=== PATIENT | female | born 1945 | race Caucasian/White ===

== ENCOUNTER → 2016-06-26 | Outpatient (CLI) | payer BC ==
[2016-06-26 11:22] LABS: BASO % 0.3 %; BASO ABS # 0.03 K/uL (0-0.2); COMPLETE YES; EOS % 1.5 %; HEMATOCRIT 33.3 % (37-47); IG% 0.4 %; LYMPH % 25.1 %; LYMPH ABS # 2.62 K/uL (1.2-3.4); MEAN CELL VOLUME 87.4 fL (80-100); MEAN CORPUSCULAR HEMOGLOBIN 29.4 pg (25-34); MEAN CORPUSCULAR HGB CONC 33.6 g/dl (32-36); MEAN PLATELET VOLUME 10.5 fL (7.4-10.4); MONO % 7.2 %; NEUT % 65.5 %; PLATELET COUNT 249 K/uL (130-400); RED BLOOD COUNT 3.81 M/uL (4.2-5.4); WHITE BLOOD COUNT 10.43 K/uL (4.8-10.8)
[2016-06-26 11:39] LABS: ALT/SGPT 21 U/L (12-78); BLOOD UREA NITROGEN 39 mg/dl (7-18); BUN/CREATININE RATIO 27.6 (10-20); CALCIUM 8.7 mg/dl (8.5-10.1); CARBON DIOXIDE 24 mmol/L (21-32); CHLORIDE 110 mmol/L (98-107); CHOLESTEROL 160 mg/dl (0-200); GLUCOSE 130 mg/dl (70-99); POTASSIUM 5.5 mmol/L (3.5-5.1); SODIUM 141 mmol/L (136-145)
[2016-06-26 11:48] LABS: ALB/GLOB RATIO 0.9 (0.9-2); ALKALINE PHOSPHATASE 52 U/L (45-117); AST/SGOT 13 U/L (15-37); CHOLESTEROL/HDL RATIO 2.7; HDL CHOLESTEROL 59 mg/dl; LDL CHOLESTEROL CALCULATED 55 mg/dl; PHOSPHORUS 3.2 mg/dl (2.5-4.9); TRIGLYCERIDES 228 mg/dl (0-150); VERY LOW DENSITY LIPOPROT CALC 46 mg/dl
[2016-06-26 11:56] LABS: URINE PROTIEN/CREAT RATIO 0.2 (0-0.2); URINE TOTAL PROTEIN 23.1 mg/dl (0-11.9)
[2016-06-26 12:37] LABS: ESTIMATED AVERAGE GLUCOSE 171 mg/dl; HA1C FLAG Normal (Normal)
[2016-06-26 12:43] LABS: MANUAL MICROSCOPIC REQUIRED? NO; REVIEW REQ? NO; URINE APPEARANCE CLEAR (CLEAR); URINE BILIRUBIN NEG (NEG); URINE COLOR YELLOW; URINE EPITHELIAL CELL AUTO 20-30 /lpf (0-5); URINE NITRITE NEG (NEG); UROBILINOGEN NEG (NEG); ZZUR CULT IF INDIC CLEAN CATCH YES
--- NOTE | 2016-07-03 06:26 | CODING QUERY MEDICAL NECESSITY ---
SUPPORTING DIAGNOSIS NEEDED A supporting diagnosis is required for the test/procedure performed on this patient in order for us to be reimbursed by the patient's insurance. Please provide a supporting diagnosis for the following test/procedure listed below next to the test name along with your signature. *If there is no additional diagnosis for this patient that would support the following test/procedure please document that below next to the test/procedure. Test(s)/Procedure(s) that require a supporting diagnosis: DOS 06/26 * Hba1c DIAGNOSIS: * TSH DIAGNOSIS: * Lipids DIAGNOSIS: Provider Signature: Date: Thank you Stacia Jones Health Information Management Once completed, please kindly fax back to [phone] For questions please call [phone]
== END | disposition home or self-care (01) ==
LOC: C.LABBC 08:33
PROVIDERS: ATTEND Internal Medicine Nephrology
DX: N18.3 Chronic kidney disease, stage 3 (moderate) (principal); E11.22 Type 2 diabetes mellitus with diabetic chronic kidney disease; I12.9 Hypertensive chronic kidney disease with stage 1 through stage 4 chronic kidney disease, or unspecified chronic kidney disease; E78.5 Hyperlipidemia, unspecified

== ENCOUNTER → 2016-08-31 | Outpatient (CLI) | payer BC ==
[2016-08-31 13:52] LABS: BLOOD UREA NITROGEN 44 mg/dl (7-18); BUN/CREATININE RATIO 31.3 (10-20); CARBON DIOXIDE 21 mmol/L (21-32); CHLORIDE 109 mmol/L (98-107); GLUCOSE 218 mg/dl (70-99); MAGNESIUM 1.5 mg/dl (1.8-2.4); PHOSPHORUS 4.1 mg/dl (2.5-4.9); POTASSIUM 5.5 mmol/L (3.5-5.1); SODIUM 137 mmol/L (136-145)
[2016-08-31 13:59] LABS: CALCIUM 9.9 mg/dl (8.5-10.1)
== END | disposition home or self-care (01) ==
LOC: C.LABBC 10:34
PROVIDERS: ATTEND Internal Medicine Nephrology
DX: E87.5 Hyperkalemia (principal)

== ENCOUNTER → 2017-02-07 | Outpatient (CLI) | payer BC ==
[2017-02-07 14:07] LABS: BLOOD UREA NITROGEN 43 mg/dl (7-18); BUN/CREATININE RATIO 30.6 (10-20); CALCIUM 10.1 mg/dl (8.5-10.1); CARBON DIOXIDE 25 mmol/L (21-32); CHLORIDE 110 mmol/L (98-107); GLUCOSE 120 mg/dl (70-99); PHOSPHORUS 3.4 mg/dl (2.5-4.9); POTASSIUM 5.2 mmol/L (3.5-5.1); SODIUM 140 mmol/L (136-145)
== END | disposition home or self-care (01) ==
LOC: C.LABBC 11:03
PROVIDERS: ATTEND Internal Medicine Nephrology
DX: E87.5 Hyperkalemia (principal)

== ENCOUNTER → 2017-09-06 | Outpatient (CLI) | payer BC ==
[2017-09-06 14:09] LABS: HEMOGLOBIN A1C 9.1 % (4.5-5.6)
== END | disposition home or self-care (01) ==
LOC: C.LABBC 10:01
PROVIDERS: ATTEND Physician Assistant
DX: E11.9 Type 2 diabetes mellitus without complications (principal)

== ENCOUNTER 2023-09-13 21:05 | Inpatient (IN) ==
[2023-09-13 22:11] LABS: Basophils # (auto) 0.02 K/uL (0.00-0.20); Basophils % (auto) 0.2 %; Eosinophils # (auto) 0.05 K/uL (0.00-0.50); Eosinophils % (auto) 0.4 %; Hematocrit (blood only) 33.5 % (37.0-47.0); Immature Granulocytes # (auto) 0.08 K/uL (0.01-0.20); Immature Granulocytes % (auto) 0.6 %; Lymphocytes # (auto) 1.11 K/uL (1.20-3.40); Lymphocytes % (auto) 8.3 %; Mean Corpuscular Hemoglobin 29.2 pg (25.0-34.0); Mean Corpuscular Hgb Conc 32.8 g/dL (32.0-36.0); Mean Corpuscular Volume 88.9 fL (80.0-100.0); Mean Platelet Volume 10.7 fL (9.4-12.4); Monocytes # (auto) 1.02 K/uL (0.11-0.59); Monocytes % (auto) 7.7 %; Neutrophils # (auto) 11.05 K/uL (1.40-6.50); Neutrophils % (auto) 82.8 %; Platelet Count 318 K/uL (130-400); RDW Standard Deviation 45.3 fL (36.4-46.3); Red Blood Count 3.77 M/uL (4.20-5.40); White Blood Count 13.33 K/ul (4.8-10.8)
[2023-09-13 22:29] LABS: Albumin Globulin Ratio 0.9 (0.9-2); Albumin Level 3.7 gm/dl (3.4-5.0); Bilirubin,Total 0.4 mg/dl (0.2-1.0); Est GFR (African American) 29.5 ml/min; Est GFR (Non-African American) 25.5 ml/min; Globulin 4.3 gm/dl (2.5-4.0); Potassium 4.1 mmol/L (3.5-5.1)
[2023-09-13] MEDS: ONDANSETRON INJ 2 MG/ML 2 ML VIAL IV STA (23:06)
[2023-09-13] MEDS: MoRPHine SULFATE 4 MG/ML 1 ML CARP\\VIAL IV STA (23:09)
[2023-09-13] MEDS: cefTRIAXone SODIUM 2,000 MG/50 ML BAG IV STA (23:10)
[2023-09-14] LABS: Magnesium 1.4 mg/dl (1.7-2.4)
--- NOTE | 2023-09-14 00:25 | Emergency Department Note ---
History of Present Illness General Chief complaint: Hip Pain Stated complaint: Edema Lower Extremities, Bilateral Stress Fx Hips Time Seen by Provider: 09/13/23 22:49 History of Present Illness Maximum Pain Intensity: 5 This 78-year-old female presents to the ER complaining of diffuse pain. Patient states she fell last week and has seen Ortho with x-rays that showed stress fractures. Patient states now her left foot is more swollen and very painful. No history of cellulitis to this leg. She states both feet actually bother her and are swollen. No history of DVT or PE. She does not smoke. Patient denies chest pain, dyspnea, abdominal pain, vomiting, diarrhea. Home Medications Medication Instructions Recorded Confirmed Type acetaminophen 500 mg tablet 500 mg PO Q6H PRN Pain 01/13/19 09/13/23 History lancets 33 gauge (OneTouch Delica #100 ea 01/13/19 07/05/23 History Lancets) multivitamin 1 tab PO DAILY 01/13/19 09/13/23 History ascorbic acid (vitamin C) 1,000 mg 1 gm PO DAILY 01/16/19 09/13/23 History tablet cholecalciferol (vitamin D3) 125 5,000 unit PO DAILY #90 caps 02/25/20 09/13/23 Rx mcg (5,000 unit) capsule cyanocobalamin (vitamin B-12) 500 500 mcg PO DAILY #30 tabs 06/27/21 09/13/23 Rx mcg tablet BD Ultra-Fine Ольга Pen Needle 32 #400 ea 11/14/22 07/05/23 Rx gauge x 5/32" (pen needle, diabetic) atorvastatin 20 mg tablet 20 mg PO DAILY #90 tabs 04/11/23 09/13/23 Rx magnesium chloride 71.5 mg 143 mg (2 x 71.5 mg) PO BID #360 06/19/23 09/13/23 Rx (magnesium chloride) tabs tablet,delayed release (Slow-Mag) sertraline 50 mg tablet 100 mg (2 x 50 mg) PO DAILY #180 08/13/23 09/13/23 Rx tabs OneTouch Verio test strips (blood #400 ea 08/23/23 Rx sugar diagnostic) tramadol 50 mg tablet 50 - 100 mg (1 - 2 x 50 mg) PO Q6H 09/12/23 09/13/23 Rx PRN pain #20 tabs insulin aspart U-100 100 unit/mL 8 - 10 unit subcut TIDM 09/13/23 09/13/23 History (3 mL) subcutaneous pen (Novolog FlexPen U-100 Insulin aspart) insulin glargine 100 unit/mL (3 20 - 30 unit subcut HS 09/13/23 09/13/23 History mL) subcutaneous pen (Basaglar KwikPen U-100 Insulin) Allergies Allergy/AdvReac Type Severity Reaction Status Date / Time tree and shrub pollen Allergy Intermediate ITCHY Verified 09/13/23 22:00 EYES, SNEEZING, CONGESTION CODY Inhibitors AdvReac Intermediate Cough Verified 09/13/23 22:00 clarithromycin AdvReac Intermediate Vomiting Verified 09/13/23 22:00 Macrolide Antibiotics AdvReac Intermediate Vomiting Verified 09/13/23 22:00 Past Med/Surg History Medical History Type 2 diabetes mellitus CKD (chronic kidney disease), stage III Hyperkalemia Surgical History History of hysterectomy Family History Father Diabetes Macular degeneration Lung disease Mother Heart disease Hyperlipidemia Dementia Social History Smoking Status: Never smoker Hx Alcohol Use: No Hx Substance Use: No Preferred Language: Wolof Communication Ability: Effective marital status: Current Living Situation: Spouse current occupational status: retired Feels Safe at Home: Yes Review of Systems A total of 10 systems reviewed and were otherwise negative Physical Exam Vital Signs Vital Signs - 24 hr 09/13/23 21:12 09/13/23 23:00 09/14/23 01:00 Temperature 36.8 C Temperature Source Oral Pulse Rate 79 Pulse Rate [Apical] 87 87 Respiratory Rate 21 18 Respiratory Effort / Characteristics Non-Labored Spontaneous Respiratory Depth Normal Respiratory Pattern Regular Blood Pressure 189/90 H Blood Pressure [Right Arm] 174/94 H 142/68 H Blood Pressure Mean 123 Blood Pressure Mean [Right Arm] 120 92 Blood Pressure Position Semi-fowlers Pulse Oximetry 96 88 L Oxygen Delivery Method Room Air Room Air Oxygen Flow Rate Sepsis Recent Fever Within 48 Hours No Sepsis New/Unexplained Change in Mental Status No Sepsis Action Taken by Nursing No Action Required 09/14/23 01:09 Temperature Temperature Source Pulse Rate Pulse Rate [Apical] Respiratory Rate Respiratory Effort / Characteristics Respiratory Depth Respiratory Pattern Blood Pressure Blood Pressure [Right Arm] Blood Pressure Mean Blood Pressure Mean [Right Arm] Blood Pressure Position Pulse Oximetry 97 Oxygen Delivery Method Nasal Cannula Oxygen Flow Rate 2 Sepsis Recent Fever Within 48 Hours Sepsis New/Unexplained Change in Mental Status Sepsis Action Taken by Nursing VITALS: Vitals are noted on the nurse's note and reviewed by myself. Vital signs stable. GENERAL: Pleasant female with present, in no acute distress, nondiaphoretic, well-developed well-nourished. SKIN: Left foot erythematous edematous concerning for cellulitis, the rest of the skin was without rashes, erythema, edema, or bruising. There is no tenting of the skin. Capillary reflex less than 2 seconds. HEAD: Normocephalic atraumatic. EARS: External auditory canals clear EYES: Pupils equal round and reactive to light and accommodation. Conjunctivae without injection, sclerae without icterus. Extraocular movements intact. NOSE: Patent, no discharge. MOUTH: Mucous membranes moist. Pharynx without erythema or exudate. Uvula midline. Airway patent. Tongue does not deviate. NECK: Supple without nuchal rigidity. No lymphadenopathy. No thyromegaly. Cervical spine is nontender. No JVD. HEART: Regular rate and rhythm LUNGS: Clear to auscultation bilaterally without wheezes, rales or rhonchi. No retractions or accessory muscle use. ABDOMEN: Positive bowel sounds x 4. Normal tympanic percussion. Soft, nontender, without masses or organomegaly. Cummins sign negative. No guarding or rebound tenderness. No CVA tenderness MUSCULOSKELETAL: No muscle atrophy noted. Pedal pulses +2 equal present bilaterally. Pelvis stable. NEURO: Patient was alert and oriented to person place and time. Normal sensation to light and sharp touch. No focal neurological deficits. Course Administered Medications Magnesium Sulfate/Dextrose (Magnesium Sulfate / D5w) 1 gm in 100 mls @ 100 mls/hr IV Q1H LIBIA Stop: 09/14/23 02:24 Last Admin: 09/14/23 00:52 Dose: 100 mls/hr Documented By: ELENI Discontinued Medications Ceftriaxone Sodium (Rocephin) 2,000 mg in 50 mls @ 100 mls/hr IV NOW STA Stop: 09/13/23 23:29 Last Infusion: 09/14/23 00:02 Dose: Infused Documented By: Admin: 09/13/23 23:10 Dose: 100 mls/hr Documented By: ELENI Morphine Sulfate (Morphine Sulfate 4 Mg/Ml 1 Ml Carp\\Vial) 4 mg IV NOW STA Stop: 09/13/23 23:01 Last Admin: 09/13/23 23:09 Dose: 4 mg Documented By: ELENI Ondansetron HCl (Ondansetron Inj 2 Mg/Ml 2 Ml Vial) 4 mg IV NOW STA Stop: 09/13/23 23:01 Last Admin: 09/13/23 23:06 Dose: 4 mg Documented By: ELENI Medical Decision Making Medical Records Attestation: I reviewed the patient's medical records. Home Medications Current Medication List: was personally reviewed by me Laboratory Data Attestation: I reviewed the patient's lab results. 09/13/23 21:30 09/13/23 21:30 Lab Results 09/13/23 09/13/23 Range/Units 21:21 21:30 WBC 13.33 H (4.8-10.8) K/ul RBC 3.77 L (4.20-5.40) M/uL Hgb 11.0 L (12.0-16.0) g/dl Hct 33.5 L (37.0-47.0) % MCV 88.9 (80.0-100.0) fL MCH 29.2 (25.0-34.0) pg MCHC 32.8 (32.0-36.0) g/dL RDW Std Deviation 45.3 (36.4-46.3) fL RDW Coeff of Haider 14.0 (11.5-14.5) % Plt Count 318 (130-400) K/uL MPV 10.7 (9.4-12.4) fL Immature Gran % (Auto) 0.6 % Neut % (Auto) 82.8 % Lymph % (Auto) 8.3 % Bulloch % (Auto) 7.7 % Eos % (Auto) 0.4 % Baso % (Auto) 0.2 % Neut # (Auto) 11.05 H (1.40-6.50) K/uL Lymph # (Auto) 1.11 L (1.20-3.40) K/uL Bulloch # (Auto) 1.02 H (0.11-0.59) K/uL Eos # (Auto) 0.05 (0.00-0.50) K/uL Baso # (Auto) 0.02 (0.00-0.20) K/uL Immature Gran # (Auto) 0.08 (0.01-0.20) K/uL Sodium 134 L (136-145) mmol/L Potassium 4.1 (3.5-5.1) mmol/L Chloride 100 (98-107) mmol/L Carbon Dioxide 24 (21-32) mmol/L Anion Gap 10 (3-11) BUN 52 H (6-23) mg/dl Creatinine 1.86 H (0.6-1.2) mg/dl Est Cr Clr Drug Dosing 28.0 ml/min Est GFR ( Amer) 29.5 ml/min Est GFR (Non-Af Amer) 25.5 ml/min BUN/Creatinine Ratio 28.0 H (10-20) Glucose 147 H (70-99(Fasting)) mg/dl POC Glucose 173 H (70-99) mg/dl Calcium 10.0 (8.6-10.3) mg/dl Magnesium 1.4 L (1.7-2.4) mg/dl Total Bilirubin 0.4 (0.2-1.0) mg/dl AST 15 (13-39) U/L ALT 13 (7-52) U/L Alkaline Phosphatase 71 (34-104) U/L Total Creatine Kinase 78 (26-192) U/L B-Natriuretic Peptide 75 (0-100) pg/ml Total Protein 8.0 (6.0-8.3) gm/dl Albumin 3.7 (3.4-5.0) gm/dl Globulin 4.3 H (2.5-4.0) gm/dl Albumin/Globulin Ratio 0.9 (0.9-2) Imaging Data Attestation: I personally reviewed and interpreted this imaging study as follows: Radiologist's Impression: Venous Doppler Study 09/13/23 23:00 Exam(s): US VENOUS BILATERAL LOWER EXTREMITIES EXAM: US Duplex Bilateral Lower Extremities Veins CLINICAL HISTORY: Reason for exam: lower leg swelling. TECHNIQUE: Real-time duplex ultrasound scan of the bilateral lower extremity veins integrating B-mode two-dimensional vascular structure, Doppler spectral analysis, color flow Doppler imaging and compression. COMPARISON: No relevant prior studies available. FINDINGS: Veins: No DVT in the visualized veins, including the common femoral, superficial femoral, proximal deep femoral and popliteal veins. The veins demonstrate normal color flow, are normally compressible, with normal phasic flow and/or augmentation response. Soft tissues: No popliteal cyst. Mild edema. IMPRESSION: No DVT, bilaterally. Electronically signed by: Kylie Taveras M.D. 09/14/23 01:24 AM MDM Narrative Prior records/ancillary studies reviewed and summarized above. Nursing notes reviewed. Additional history obtained from family The patient's history was concerning for generalized pain. Differential diagnosis: Etiologies such as metabolic, infection, hypo/hyperglycemia, electrolyte abnormalities, cardiac sources, intracerebral event, toxicologic, neurologic, as well as others were entertained. Physical examination: As above. ER treatment provided: IV Lock An order was placed for continuous cardiac monitoring. The monitor shows a rate of 60-100 with a sinus rhythm per my interpretation. Rocephin, morphine, Zofran was ordered Magnesium was replaced On reassessment the patient felt better. Diagnostics interpretation by me: The labs Independently Interpreted by myself revealed leukocytosis, blood cultures pending Stable creatinine per chart review, mild anemia, low magnesium and this was replaced Imaging studies: DVT ultrasound was negative Consultation: A consultation was placed with the hospitalist. The case was discussed and diagnostics were reviewed. The patient was evaluated in the ER for further treatment. Exam and history seem consistent with left lower leg cellulitis. Patient started antibiotics. Patient was in too much pain to go home. Medicine was consulted and case was discussed. She will be mated to the medical service. Patient is agreeable. By the evaluation outlined above emergent etiologies such as cardiac sources, intracerebral event, toxologic, neurologic, abnormalities blood glucose, metabolic, as well as others were deemed relatively unlikely. The pt informed about the findings as listed above. All questions were answered and pleased with the treatment. The chart was completed utilizing [employer] voice recognition software. Grammatical errors, random word insertions, pronoun errors, and incomplete sentences are an occassional consequence of this system due to software limitations, ambient noise, and hardware issues. Any formal questions or concerns about the content, text, or information contained within the body of this dictation should be directly addressed to the physician educational assistant teacher for clarification. Impression & Plan Cellulitis of left lower leg, Hypomagnesemia Discharge Plan Visit Data Chief Complaint: Hip Pain Stated Complaint: Edema Lower Extremities, Bilateral Stress Fx Hips ED Provider: Nolberto Watt ED Midlevel Provider: Marlene Fisher Discharge Problem: Cellulitis of left lower leg, Hypomagnesemia Patient Disposition: Admitted As Inpatient Condition: Good Forms Stand Alone Forms: My [facility] [employer] Prescriptions Prescriptions: No Action cyanocobalamin (vitamin B-12) 500 mcg tablet 500 mcg PO DAILY Qty: 30 0RF (DME) pen needle, diabetic [BD Ultra-Fine Ольга Pen Needle] 32 gauge x 5/32" needle See Dose Instructions .ROUTE .MEDSUPPLY Qty: 400 1RF Dose Instruction: As directed Rx Instructions: use 4 daily with insulin injections atorvastatin 20 mg tablet 20 mg PO DAILY Qty: 90 3RF sertraline 50 mg tablet 100 mg PO DAILY Qty: 180 3RF (DME) OneTouch Verio test strips Strip See Dose Instructions .ROUTE .MEDSUPPLY Qty: 400 3RF Rx Instructions: Test blood sugars 4 times a day cholecalciferol (vitamin D3) 125 mcg (5,000 unit) capsule 5,000 unit PO DAILY Qty: 90 3RF Slow-Mag 71.5 mg tablet,delayed release (DR/EC) 143 mg PO BID Qty: 360 3RF acetaminophen 500 mg tablet 500 mg PO Q6H PRN (Reason: Pain) multivitamin tablet 1 tab PO DAILY (DME) lancets [OneTouch Delica Lancets] 33 gauge misc See Dose Instructions .ROUTE .MEDSUPPLY Qty: 100 Rx Instructions: As directed ascorbic acid (vitamin C) 1,000 mg tablet 1 gm PO DAILY tramadol 50 mg tablet 50 - 100 mg PO Q6H PRN (Reason: pain) Qty: 20 0RF insulin glargine [Basaglar KwikPen U-100 Insulin] 100 unit/mL (3 mL) insulin pen 20 - 30 unit SUBCUT HS Rx Instructions: DEPENDS ON BSG PRIOR TO INJECTION insulin aspart U-100 [Novolog FlexPen U-100 Insulin] 100 unit/mL (3 mL) insulin pen 8 - 10 unit SQ TIDM Rx Instructions: inject per sliding scale up to 12 units with meals- 3 times daily Referrals Referrals: Rola Fofana MD [Primary Care Provider] -
--- NOTE | 2023-09-14 00:51 | Emergency Department Note ---
ED Visit Note I have personally evaluated this patient examined her and reviewed the pertinent labs and data. I have discussed the case with Griselda Fisher, the physician family and divorce legal assistant and agree with the plan. Please refer to the PA note. This patient comes in after feeling weak on exam she does have some redness of her left foot she has been started on antibiotics and the hospitalist team is seen her . I saw and talked the patient at length as well as her family member who is at the bedside .
[2023-09-14] MEDS: MAGNESIUM SULFATE / D5W 1 GM/100 ML BAG IV SCH (00:52)
--- NOTE | 2023-09-14 01:25 | Ultrasound Report ---
Exam(s): US VENOUS BILATERAL LOWER EXTREMITIES EXAM: US Duplex Bilateral Lower Extremities Veins CLINICAL HISTORY: Reason for exam: lower leg swelling. TECHNIQUE: Real-time duplex ultrasound scan of the bilateral lower extremity veins integrating B-mode two-dimensional vascular structure, Doppler spectral analysis, color flow Doppler imaging and compression. COMPARISON: No relevant prior studies available. FINDINGS: Veins: No DVT in the visualized veins, including the common femoral, superficial femoral, proximal deep femoral and popliteal veins. The veins demonstrate normal color flow, are normally compressible, with normal phasic flow and/or augmentation response. Soft tissues: No popliteal cyst. Mild edema. IMPRESSION: No DVT, bilaterally. Electronically signed by: Kylie Taveras M.D. 09/14/23 01:24 AM
--- NOTE | 2023-09-14 01:55 | History & Physical Report ---
Date of Service September 14, 2023 Assessment & Plan (1) Cellulitis of left lower leg: Plan: Exam consistent with cellulitis. No signs of DVT on US. Started on CTX in the ED. Will continue with cefepime as patient with hx of diabetes. Blood cultures ordered - unfortunately abx already given. No signs of sepsis. If improvement in symptoms patient likely able to proceed with outpatient treatment. cefepime start 09/13 f/u blood cultures (2) Pelvis fracture: Plan: Patient saw ortho 09/11. Conservative measures only. (3) Diabetic retinopathy associated with controlled type 2 diabetes mellitus: Plan: Patient on insulin at home. Reduce to 5 mg BID basal in addition to SSI. SSI ACHS BSG Basal 5 mg BID (4) Hypertension: Plan: Does not appear to be on antihypertensive medication at home (5) Hyperlipidemia: Plan: Continue home statin Plan Code status: DNR/DNI DVT ppx: Lovenox SQ Q24H FENGI: carb consistent LR @ 125mL/hr x 2 bags Dispo: MedSurg History of Present Illness Chief Complaint: leg pain/swelling Primary Care Provider: Rola Fofana MD 78 y/o female with a PMHx of T2DM insulin dependent, HLD, VitD, and VitB12 deficiencies here for bilateral foot swelling and pain. Patient fell down the stairs about a week ago. Was initially sore, but doing okay and able to ambulate. Pain worsened, so she was seen by ortho outpatient. They did multiple XRs really only significant for nondisplaced left sided pelvic fracture. Recommended conservative measures at that time with repeat XR pelvis in 3-4 weeks. Patient did have pain/swelling/redness of her left foot/calf at that time. Note mentions mild erythema left foot. No intervention recommended. Patient started on CTX in the ED. Given morphine and zofran. Bilateral dopplers ordered. Hospitalist service consulted. Upon my interview, patient is resting comfortably. No f/c/n/v/abdominal pain, CP, or SOB. Does state that her right foot was initially erythematous and now it is her left. Allergies Allergy/AdvReac Type Severity Reaction Status Date / Time tree and shrub pollen Allergy Intermediate ITCHY Verified 09/13/23 22:00 EYES, SNEEZING, CONGESTION CODY Inhibitors AdvReac Intermediate Cough Verified 09/13/23 22:00 clarithromycin AdvReac Intermediate Vomiting Verified 09/13/23 22:00 Macrolide Antibiotics AdvReac Intermediate Vomiting Verified 09/13/23 22:00 Home Medications Medication Instructions Recorded Confirmed Type acetaminophen 500 mg tablet 500 mg PO Q6H PRN Pain 01/13/19 09/13/23 History lancets 33 gauge (OneTouch Delica #100 ea 01/13/19 07/05/23 History Lancets) multivitamin 1 tab PO DAILY 01/13/19 09/13/23 History ascorbic acid (vitamin C) 1,000 mg 1 gm PO DAILY 01/16/19 09/13/23 History tablet cholecalciferol (vitamin D3) 125 5,000 unit PO DAILY #90 caps 02/25/20 09/13/23 Rx mcg (5,000 unit) capsule cyanocobalamin (vitamin B-12) 500 500 mcg PO DAILY #30 tabs 06/27/21 09/13/23 Rx mcg tablet BD Ultra-Fine Ольга Pen Needle 32 #400 ea 11/14/22 07/05/23 Rx gauge x 5/32" (pen needle, diabetic) atorvastatin 20 mg tablet 20 mg PO DAILY #90 tabs 04/11/23 09/13/23 Rx magnesium chloride 71.5 mg 143 mg (2 x 71.5 mg) PO BID #360 06/19/23 09/13/23 Rx (magnesium chloride) tabs tablet,delayed release (Slow-Mag) sertraline 50 mg tablet 100 mg (2 x 50 mg) PO DAILY #180 08/13/23 09/13/23 Rx tabs OneTouch Verio test strips (blood #400 ea 08/23/23 Rx sugar diagnostic) tramadol 50 mg tablet 50 - 100 mg (1 - 2 x 50 mg) PO Q6H 09/12/23 09/13/23 Rx PRN pain #20 tabs insulin aspart U-100 100 unit/mL 8 - 10 unit subcut TIDM 09/13/23 09/13/23 History (3 mL) subcutaneous pen (Novolog FlexPen U-100 Insulin aspart) insulin glargine 100 unit/mL (3 20 - 30 unit subcut HS 09/13/23 09/13/23 History mL) subcutaneous pen (Basaglar KwikPen U-100 Insulin) Past Med/Surg History Medical History Type 2 diabetes mellitus CKD (chronic kidney disease), stage III Hyperkalemia Surgical History History of hysterectomy Family History Father Diabetes Macular degeneration Lung disease Mother Heart disease Hyperlipidemia Dementia Social History Smoking Status: Never smoker Second Hand Exposure: No; Do You Dip or Chew Tobacco: No; Hx Alcohol Use: No Hx Substance Use: No Preferred Language: Senegalese Communication Ability: Effective Sandstone Inspector Repairer Required: No Beliefs That Will Affect Care: None marital status: Current Living Situation: Spouse current occupational status: retired Other Information That Helps Us Care for You: No Feels Safe at Home: Yes Safety Concerns: Feels Safe At This Time Assistive Devices: Walker Review of Systems 2 Review of Systems: See HPI Physical Exam 2 Physical Exam: Gen: well appearing patient in NAD HEENT: AT NC MMM Resp: CTAB no wheezing no increased work of breathing CV: RRR no m/r/g clinically well perfused Abd: soft, non-tender, non-distended MSK: no obvious deformities Skin: no rashes or bruising, erythema and slight warmth of the left lower extremity, tender, no purulence, fluctuance, or drainage noted, no obvious wound or source, minimal erythema on the right but it is present Neuro: alert and oriented Psych: appropriate mood and affect Results & Data Results & Data Vital Signs (Past 12 Hours) Vital Signs Temp Pulse Pulse Resp BP BP Pulse Ox 09/14/23 01:09 97 09/14/23 01:00 87 18 142/68 H 88 L 09/13/23 23:00 87 174/94 H 09/13/23 21:12 36.8 C 79 21 189/90 H 96 O2 Del Method O2 Flow Rate 09/14/23 01:09 Nasal Cannula 2 09/14/23 01:00 Room Air 09/13/23 23:00 09/13/23 21:12 Room Air Laboratory Results 09/13/23 21:30 09/13/23 21:30 Diagnostic Findings Venous Doppler Study 09/13/23 23:00 FINDINGS: Veins: No DVT in the visualized veins, including the common femoral, superficial femoral, proximal deep femoral and popliteal veins. The veins demonstrate normal color flow, are normally compressible, with normal phasic flow and/or augmentation response. Soft tissues: No popliteal cyst. Mild edema. IMPRESSION: No DVT, bilaterally. Code Status & VTE Plan VTE Prophylaxis Plan VTE Prophylaxis will be ordered: Yes Supervising Physician Co-Signing Physician Notes Attending addendum: I have physically seen this patient, have supervised the medical residents activities, and agree with the H&P unless as otherwise noted. Assessment and Plan: Cellulitis of left lower extremity- Venous Doppler negative for DVT Given ceftriaxone 2 g IV by the ED Cefepime 2 g IV every 12 hours Follow blood culture and sensitivity Pelvis fracture- Followed by orthopedic surgery, having been seen on 09/11, with conservative measures only Diabetes mellitus- Adjustment insulin as noted Placed on Accu-Cheks with NovoLog SSI Remaining orders and notations as noted Resident Activity Tracking Resident Involvement: Resident Care Provided Care Provided: Adult Hospital Medicine (4) Hypertension Hypertension type: essential hypertension Qualified Code(s): I10 - Essential (primary) hypertension (5) Hyperlipidemia Hyperlipidemia type: mixed hyperlipidemia Qualified Code(s): E78.2 - Mixed hyperlipidemia
[2023-09-14] MEDS ORDERED: ONDANSETRON INJ 2 MG/ML 2 ML VIAL IV PRN (03:32)
[2023-09-14] MEDS ORDERED: GLUCOSE 40% GEL 15 GM TUBE PO PRN (03:32)
[2023-09-14] MEDS ORDERED: GLUCAGON FOR INJ 1 MG VIAL SQ PRN (03:32)
[2023-09-14] MEDS ORDERED: CARBOHYDRATES FOR HYPOGLYCEMIA PO PRN (03:32)
[2023-09-14] MEDS ORDERED: DEXTROSE 50% 50 ML SYRINGE IV PRN (03:32)
[2023-09-14] MEDS ORDERED: GLUCOSE 10 TAB/TUBE PO PRN (03:32)
[2023-09-14] MEDS: traMADol HCL 50 MG TABLET PO PRN (04:17)
[2023-09-14] MEDS: LACTATED RINGER'S 1,000 ML IV SCH (04:19)
[2023-09-14] MEDS: CEFEPIME 1,000 MG in SYRINGE 0 ML IV SCH (05:53)
[2023-09-14] MEDS: SERTRALINE HCL 100 MG TABLET PO SCH (08:26)
[2023-09-14] MEDS: ATORVASTATIN 20 MG TAB PO SCH (08:26)
[2023-09-14] MEDS: ENOXAPARIN INJ 30 MG/0.3 ML SYR SQ SCH (08:27)
[2023-09-14 08:33] LABS: Estimated Average Glucose 183 mg/dl
[2023-09-14] MEDS: LANTUS PER UNIT CHARGE SQ SCH (09:05)
[2023-09-14] MEDS: INSULIN ASPART PER UNIT CHARGE SC SCH (09:05)
[2023-09-14 10:41] LABS: Basophils # (auto) 0.03 K/uL (0.00-0.20); Basophils % (auto) 0.3 %; Eosinophils # (auto) 0.11 K/uL (0.00-0.50); Eosinophils % (auto) 0.9 %; Hematocrit (blood only) 28.8 % (37.0-47.0); Hemoglobin 9.5 g/dl (12.0-16.0); Immature Granulocytes # (auto) 0.08 K/uL (0.01-0.20); Immature Granulocytes % (auto) 0.7 %; Lymphocytes # (auto) 1.63 K/uL (1.20-3.40); Lymphocytes % (auto) 13.8 %; Mean Corpuscular Hemoglobin 29.4 pg (25.0-34.0); Mean Corpuscular Volume 89.2 fL (80.0-100.0); Mean Platelet Volume 10.9 fL (9.4-12.4); Monocytes # (auto) 1.38 K/uL (0.11-0.59); Monocytes % (auto) 11.7 %; Neutrophils % (auto) 72.6 %; Platelet Count 270 K/uL (130-400); RDW Coefficient of Variation 14.1 % (11.5-14.5); RDW Standard Deviation 45.7 fL (36.4-46.3); Red Blood Count 3.23 M/uL (4.20-5.40); White Blood Count 11.83 K/ul (4.8-10.8)
[2023-09-14 10:47] LABS: Calcium 9.2 mg/dl (8.6-10.3); Creatinine Clr Calc Pharmacy 28.8 ml/min; Est GFR (African American) 31.8 ml/min; Est GFR (Non-African American) 27.4 ml/min; Magnesium 1.7 mg/dl (1.7-2.4); Potassium 4.4 mmol/L (3.5-5.1)
[2023-09-14] MEDS: oxyCODONE HCL IR 5 MG TAB (IMMEDIATE RELEASE) PO PRN (13:24)
--- NOTE | 2023-09-14 15:32 | Hospitalist Progress Note ---
Date of Service September 14, 2023 Assessment & Plan (1) Cellulitis of left lower leg: Plan: Exam consistent with cellulitis. No signs of DVT on US. Started on CTX in the ED. Will continue with cefepime for now. Blood cultures ordered - unfortunately abx already given. No signs of sepsis. If improvement in symptoms patient likely able to proceed with outpatient treatment. cefepime start 09/13 f/u blood cultures Pain likely secondary to cellulitis + injury from recent fall. Continue Tyl. Unable to do NSAIDs due to CKD. Tramadol not helpful. Will trial oxycodone (2) Bilateral leg weakness: Plan: Notes this is a chronic and progressive issue Suspect deconditioning and fear of ambulation contributing with fall worsening symptoms Has had prior lumbar spine XR in 2019 with degenerative changes No bowel/bladder incontinence PT/OT, likely needs higher level of care Likely needs ongoing outpatient w/u and management (3) Pelvis fracture: Plan: Patient saw ortho 09/11. Conservative measures only. (4) Diabetic retinopathy associated with controlled type 2 diabetes mellitus: Plan: Patient on insulin at home. Reduce to 5 mg BID basal in addition to SSI. SSI ACHS BSG Basal 5 mg BID (5) Hypertension: Plan: Does not appear to be on antihypertensive medication at home (6) Hyperlipidemia: Plan: Continue home statin (7) Anemia: Plan: Decrease to 9.5 from 11.0 - will monitor for now Plan Code status: DNR/DNI DVT ppx: Lovenox SQ Q24H FENGI: carb consistent LR @ 125mL/hr x 2 bags Dispo: MedSurg Admission and Anticipated Discharge Date Admission Date: September 14, 2023 Subjective Reports ongoing back and LE pain with what seems to be most pain localizing to LLE. She reports she is scared to stand up and get out of bed, notes decreased mobility. States she had been told before her LE weakness is from her back and that she is not a surgical candidate, so she hasn't done much else. expresses safety concern with their current set-up with her current symptoms and mobility concerns and decreased level of functioning. Denies any bowel/bladder incontinence. She denies fevers/chills, SOB, CP. Review of Systems Review of Systems: Per subjective Physical Exam Physical Exam: General: Well-appearing, NAD Cardiovascular: RRR, no M/R/G Pulmonary: CTAB anteriorly Extremities: Moving all extremities, erythema and slight warmth of the left lower extremity with TTP, +pitting pedal edema L>R Integumentary: No suspicious rash or lesion on exposed skin Neurologic: AAOx3, no focal deficits Psychiatric: Appropriate mood/affect Results & Data Results & Data Vital Signs (Past 12 Hours) Vital Signs Temp Pulse Resp BP Pulse Ox O2 Del Method O2 Flow Rate 09/14/23 07:46 36.9 C 80 16 125/70 96 Nasal Cannula 2 Laboratory Results CBC notable for hemoglobin drop to 9.5 from 11.0, sodium mildly low at 132, creatinine stable at 1.75, hemoglobin A1c 8.0%, magnesium 1.7 PG Care Time/CCT Total # of Minutes Spent Total Time Spent with Patient: Total time spent is greater than 50% in coordination of care (as documented) at patient's floor/unit and/or counseling patient: Coding Level of Care Code None Diagnoses Cellulitis of left lower leg L03.116 Bilateral leg weakness R29.898 Pelvis fracture S32.9XXA Diabetic retinopathy associated with controlled type 2 diabetes mellitus E11.319 Essential hypertension I10 Hypertension type: essential hypertension Mixed hyperlipidemia E78.2 Hyperlipidemia type: mixed hyperlipidemia Anemia D64.9 (5) Hypertension Hypertension type: essential hypertension Qualified Code(s): I10 - Essential (primary) hypertension (6) Hyperlipidemia Hyperlipidemia type: mixed hyperlipidemia Qualified Code(s): E78.2 - Mixed hyperlipidemia
--- NOTE | 2023-09-14 22:24 | Billing Data ---
Date of Service September 14, 2023 Coding Level of Care Code 35649 INT INP/OBS CARE
[2023-09-15 06:23] LABS: Basophils # (auto) 0.03 K/uL (0.00-0.20); Basophils % (auto) 0.2 %; Eosinophils # (auto) 0.01 K/uL (0.00-0.50); Eosinophils % (auto) 0.1 %; Hematocrit (blood only) 31.3 % (37.0-47.0); Hemoglobin 10.1 g/dl (12.0-16.0); Immature Granulocytes # (auto) 0.08 K/uL (0.01-0.20); Immature Granulocytes % (auto) 0.5 %; Lymphocytes # (auto) 0.75 K/uL (1.20-3.40); Lymphocytes % (auto) 4.4 %; Mean Corpuscular Hgb Conc 32.3 g/dL (32.0-36.0); Mean Corpuscular Volume 89.9 fL (80.0-100.0); Mean Platelet Volume 10.7 fL (9.4-12.4); Monocytes # (auto) 1.72 K/uL (0.11-0.59); Monocytes % (auto) 10.1 %; Neutrophils # (auto) 14.39 K/uL (1.40-6.50); Neutrophils % (auto) 84.7 %; Platelet Count 354 K/uL (130-400); RDW Coefficient of Variation 14.2 % (11.5-14.5); RDW Standard Deviation 46.7 fL (36.4-46.3); Red Blood Count 3.48 M/uL (4.20-5.40); White Blood Count 16.98 K/ul (4.8-10.8)
[2023-09-15 06:51] LABS: BUN Creatinine Ratio 20.2 (10-20); Calcium 9.6 mg/dl (8.6-10.3); Creatinine Clr Calc Pharmacy 20.4 ml/min; Est GFR (African American) 20.9 ml/min; Est GFR (Non-African American) 18.1 ml/min; Magnesium 1.7 mg/dl (1.7-2.4); Potassium 5.8 mmol/L (3.5-5.1)
[2023-09-15 08:27] LABS: BUN Creatinine Ratio 19.2 (10-20); Calcium 9.4 mg/dl (8.6-10.3); Est GFR (African American) 17.9 ml/min; Est GFR (Non-African American) 15.5 ml/min; Potassium 5.8 mmol/L (3.5-5.1)
[2023-09-15] MEDS: DEXTROSE 50% 50 ML SYRINGE IV STA (09:25)
[2023-09-15] MEDS: INSULIN HUMAN REGULAR PER UNIT 10 UNITS in SYRINGE 9.9 ML IV STA (09:25)
[2023-09-15] MEDS: ALBUTEROL 0.5% NEB SOLN 2.5 MG/0.5 ML VIAL NEB STA (09:43)
[2023-09-15] MEDS: CALCIUM GLUCONATE 1,000 MG/60 ML BAG IV STA (10:44)
--- NOTE | 2023-09-15 10:45 | Hospitalist Progress Note ---
Date of Service September 15, 2023 Assessment & Plan (1) Acute kidney injury superimposed on CKD: Plan: Progressive worsening creatinine through 09/14 with hyperkalemia Nephrology consulted Start gentle IVF rehydration Check urinalysis with microscopy, urine creatinine and sodium Check renal ultrasound Switch cefepime to Zosyn (renally dosed) Trend labs (2) Hyperkalemia: Plan: EKG with questionable peaking T waves Treated with calcium gluconate, albuterol nebulizer, 10 units regular insulin/D50, Lokelma, and Lasix Improved on recheck Trend labs (3) Paranoia: Plan: Paranoid thoughts and behavior today. Patient initially declined any treatment this morning but after arrived, was amenable to treatment Suspect component of hospital delirium however, per conversation with patient's , patient has had similar types of thought patterns and abnormal behaviors occurring intermittently over the last year Recommend dose of miralax as may have a component of constipation (no BM noted since admission and on narcotic medications) contributing Consider brain imaging or psych c/s (4) Cellulitis of left lower leg: Plan: Exam consistent with cellulitis. No signs of DVT on US. Started on CTX in the ED and transitioned to cefepime. Blood cultures ordered - unfortunately abx already given. No signs of sepsis. If improvement in symptoms patient likely able to proceed with outpatient treatment. cefepime start 09/13, switch to renally dosed Zosyn 09/14 per renal recs given VALE on CKD f/u blood cultures Pain likely secondary to cellulitis + injury from recent fall. Continue Tyl. Unable to do NSAIDs due to CKD. Tramadol not helpful. Will trial oxycodone but cautiously given paranoid thoughts (5) Bilateral leg weakness: Plan: Notes this is a chronic and progressive issue Suspect deconditioning and fear of ambulation contributing with fall worsening symptoms Has had prior lumbar spine XR in 2020 with degenerative changes No bowel/bladder incontinence PT/OT, likely needs higher level of care Likely needs ongoing outpatient w/u and management (6) Pelvis fracture: Plan: Patient saw ortho 09/11. Conservative measures only. (7) Diabetic retinopathy associated with controlled type 2 diabetes mellitus: Plan: Patient on insulin at home. Reduce to 5 mg BID basal in addition to SSI. SSI ACHS BSG Basal 5 mg BID Note hyperglycemia 09/14, CTM and may need to adjust insulin regimen (8) Hypertension: Plan: Does not appear to be on antihypertensive medication at home (9) Hyperlipidemia: Plan: Continue home statin (10) Anemia: Plan: Monitoring for now, likely CKD contributing Plan Code status: DNR/DNI DVT ppx: pLov changed to heparin SQ due to VALE on CKD FENGI: carb consistent Dispo: MedSur Admission and Anticipated Discharge Date Admission Date: September 14, 2023 Subjective Denies any significant pain or other additional concerns, though unwilling to answer all my questions appropriately. However reports she feels there is a conspiracy occurring and I'm just reading from a script. She declined any treatment this morning even after me explaining importance of the medications. Per separate conversation with patient's , patient has had similar types of thought patterns and abnormal behaviors occurring intermittently over the last year. Review of Systems Review of Systems: Per subjective, not fully obtainable due to patient's cognition Physical Exam Physical Exam: General: Well-appearing, NAD Cardiopulmonary: Breathing comfortably on RA Extremities: Moving all extremities, improving erythema and slight warmth of the left lower extremity with no significant TTP, +pitting pedal edema L>R Neurologic: AAOx3 - recognizes in hospital but not fully oriented to time, no focal deficits with normal speech Psychiatric: Paranoid behavior and comments Results & Data Results & Data Vital Signs (Past 12 Hours) Vital Signs Resp BP Pulse Ox O2 Del Method O2 Flow Rate 09/15/23 07:51 19 124/60 97 Nasal Cannula 3 During evaluation, able to take O2 off and patient saturating low 90s on RA Laboratory Results CBC notable for increase in WBC to 17, hemoglobin increased to 10.1. BMP through the course of the day with initial sodium of 132 that down trended to 130 and then 128; potassium 5.8 and remained 5.8 on recheck then decreased to 4.8 after interventions; creatinine increased from 1.75 on 09/13-2.47 then 2.81 and finally 2.96 at noon. Hyperglycemia through the day from 200s to 300s. Phosphorus mildly elevated at 5.0 with magnesium normal at 1.7 ECG Additional Comments: NSR with questionable peaking T waves PG Care Time/CCT Total # of Minutes Spent Total Time Spent with Patient: Total time spent is greater than 50% in coordination of care (as documented) at patient's floor/unit and/or counseling patient: Coding Level of Care Code 28209 SUB INP/OBS CARE 50MIN Diagnoses Acute kidney injury superimposed on CKD N17.9; N18.9 Hyperkalemia E87.5 Paranoia F22 Cellulitis of left lower leg L03.116 Bilateral leg weakness R29.898 Pelvis fracture S32.9XXA Diabetic retinopathy associated with controlled type 2 diabetes mellitus E11.319 Essential hypertension I10 Hypertension type: essential hypertension Mixed hyperlipidemia E78.2 Hyperlipidemia type: mixed hyperlipidemia Anemia D64.9 (8) Hypertension Hypertension type: essential hypertension Qualified Code(s): I10 - Essential (primary) hypertension (9) Hyperlipidemia Hyperlipidemia type: mixed hyperlipidemia Qualified Code(s): E78.2 - Mixed hyperlipidemia
[2023-09-15] MEDS: SODIUM CHLORIDE 0.9% 1,000 ML IV SCH (10:49)
[2023-09-15] MEDS: HEPARIN SOD 5,000 UNIT/0.5 ML VIAL SQ SCH (10:50)
[2023-09-15] MEDS: SODIUM ZIRCONIUM CYCLOSILICATE 10 GM PACKET PO SCH (10:51)
--- NOTE | 2023-09-15 12:03 | Nephrology Consultation ---
Date of Consultation September 15, 2023 Assessment & Plan (1) Acute kidney injury: * VALE likely due to dehydration/cellulitis * Agree w/ gentle hydration * Will order urinalysis w/ microscopy and renal US * Monitor PRP (2) Chronic kidney disease, stage 4 (severe): * CKD stage G4 (advanced impairment). Baseline Cr 1.8 w/ EGFR 25 cc/min. CKD has been attributed to DKD (3) Hyperkalemia: * Peaked T-waves on ECG * Primary service has already administered Ca gluconate, dextrose, insulin * Lokelma 10 g po TID x6 doses has been ordered * 0.9 NS has been started. Will provide one dose Furosemide 20 mg IV x1 now to promote diuresis * Monitor serial PRP (4) Diabetes: * Poor glycemic control. This is likely exacerbating hyperkalemia (5) Cellulitis of left lower leg: * Clinically improved * Recommend changing from Cefepime to Zosyn or alternative agent due to potential neurotoxicity of Cefepime in the setting of VALE/CKD History of Present Illness Reason for Consultation: VALE/CKD Attending Physician: Autumn Mendez MD History of Present Illness Mrs. Villarreal is a 78 year old white female who is seen at the request of [facility] Hospitalist Service for evaluation of VALE/CKD. The patient can provide only limited details of the medical history. Information for the HPI was obtained from patient's and review of the EMR. HPI is summarized as follows: Mrs. Villarreal has CKD stage G4 (advanced impairment). Baseline Cr 1.8 w/ EGFR 25 cc/min. Her primary Hostess is Dr. Thompson. CKD has been attributed to DKD. Her medical history is also significant for chronic hypomagnesemia, hyperkalemia. She has not been on CODY/ARB or potassium binding therapy. She has AODM complicated by retinopathy, HTN, pseudogout and osteoarthritis. Mr. Villarreal reports that Saige may be developing dementia. She has difficulty w/ insulin administration and has not been adhering to a low potassium or low carbohydrate diet. He reports that she eats mostly sweets and drinks 6-8 cans of soda daily. They frequently argue about her glycemic control. Mrs. Villarreal was admitted to [facility] 09/14/23 for management of cellulitis involving the dorsal aspect of her L foot. On admission Cr was noted to be 2.81, Na 130, K5.8, glucose 345. ECG revealed normal GA, QRS intervals with peaking of the T-waves. Medical management for hyperkalemia has already been instituted by the primary service Allergies Allergy/AdvReac Type Severity Reaction Status Date / Time tree and shrub pollen Allergy Intermediate ITCHY Verified 09/13/23 22:00 EYES, SNEEZING, CONGESTION CODY Inhibitors AdvReac Intermediate Cough Verified 09/13/23 22:00 clarithromycin AdvReac Intermediate Vomiting Verified 09/13/23 22:00 Macrolide Antibiotics AdvReac Intermediate Vomiting Verified 09/13/23 22:00 Home Medications Medication Instructions Recorded Confirmed Type acetaminophen 500 mg tablet 500 mg PO Q6H PRN Pain 01/13/19 09/13/23 History lancets 33 gauge (OneTouch Delica #100 ea 01/13/19 07/05/23 History Lancets) multivitamin 1 tab PO DAILY 01/13/19 09/13/23 History ascorbic acid (vitamin C) 1,000 mg 1 gm PO DAILY 01/16/19 09/13/23 History tablet cholecalciferol (vitamin D3) 125 5,000 unit PO DAILY #90 caps 02/25/20 09/13/23 Rx mcg (5,000 unit) capsule cyanocobalamin (vitamin B-12) 500 500 mcg PO DAILY #30 tabs 06/27/21 09/13/23 Rx mcg tablet BD Ultra-Fine Ольаг Pen Needle 32 #400 ea 11/14/22 07/05/23 Rx gauge x 5/32" (pen needle, diabetic) atorvastatin 20 mg tablet 20 mg PO DAILY #90 tabs 04/11/23 09/13/23 Rx magnesium chloride 71.5 mg 143 mg (2 x 71.5 mg) PO BID #360 06/19/23 09/13/23 Rx (magnesium chloride) tabs tablet,delayed release (Slow-Mag) sertraline 50 mg tablet 100 mg (2 x 50 mg) PO DAILY #180 08/13/23 09/13/23 Rx tabs OneTouch Verio test strips (blood #400 ea 08/23/23 Rx sugar diagnostic) tramadol 50 mg tablet 50 - 100 mg (1 - 2 x 50 mg) PO Q6H 09/12/23 09/13/23 Rx PRN pain #20 tabs insulin aspart U-100 100 unit/mL 8 - 10 unit subcut TIDM 09/13/23 09/13/23 History (3 mL) subcutaneous pen (Novolog FlexPen U-100 Insulin aspart) insulin glargine 100 unit/mL (3 20 - 30 unit subcut HS 09/13/23 09/13/23 History mL) subcutaneous pen (Basaglar KwikPen U-100 Insulin) Patient History Medical History (Updated 09/15/23 @ 11:57 by Milo Franco MD) Hyperkalemia Type 2 diabetes mellitus CKD (chronic kidney disease), stage III Surgical History History of hysterectomy Family History Father Diabetes Macular degeneration Lung disease Mother Heart disease Hyperlipidemia Dementia Social History Smoking Status: Never smoker Second Hand Exposure: No; Do You Dip or Chew Tobacco: No; Hx Alcohol Use: No Hx Substance Use: No Preferred Language: Greenlandic Communication Ability: Effective Ambulette Driver Required: No Beliefs That Will Affect Care: None marital status: Current Living Situation: Spouse current occupational status: retired Other Information That Helps Us Care for You: No Feels Safe at Home: Yes Safety Concerns: Feels Safe At This Time Assistive Devices: Walker Review of Systems Constitutional: no fever Eyes: no problem reported Ear, Nose, Mouth, Throat: no problem reported Respiratory: no cough and no dyspnea Cardiovascular: no chest pain Gastrointestinal: no nausea, no vomiting and no diarrhea/loose stools Integumentary: + erythema (dorsum L foot) Psychiatric: + problem reported Physical Exam Constitutional: not in distress Eyes: PERRL, conjunctivae normal, anicteric sclerae ENMT: external ear and nose normal, oropharynx normal Neck: trachea midline, no thyromegaly Respiratory: normal respiratory effort, lungs clear to auscultation Cardiovascular: Rate/Rhythm: regular rate and regular rhythm Gastrointestinal (Abdomen): Inspection/Auscultation: normal bowel sounds Skin: no rashes, warm and dry cellulitis involving dorsum L foot appears faint/resolving Neurologic: Speech / Cognition: + abnormal cognition (tangential speech) Psychiatric: Mood: + irritable mood Results & Data Vital Signs (Past 12 Hours) Vital Signs Resp BP Pulse Ox O2 Del Method O2 Flow Rate 09/15/23 07:51 19 124/60 97 Nasal Cannula 3 Laboratory Results Laboratory Results WBC 16.98 K/ul (4.8-10.8) H 09/15/23 05:47 RBC 3.48 M/uL (4.20-5.40) L 09/15/23 05:47 Hgb 10.1 g/dl (12.0-16.0) L 09/15/23 05:47 Hct 31.3 % (37.0-47.0) L 09/15/23 05:47 MCV 89.9 fL (80.0-100.0) 09/15/23 05:47 MCH 29.0 pg (25.0-34.0) 09/15/23 05:47 MCHC 32.3 g/dL (32.0-36.0) 09/15/23 05:47 RDW Std Deviation 46.7 fL (36.4-46.3) H 09/15/23 05:47 RDW Coeff of Haider 14.2 % (11.5-14.5) 09/15/23 05:47 Plt Count 354 K/uL (130-400) 09/15/23 05:47 MPV 10.7 fL (9.4-12.4) 09/15/23 05:47 Immature Gran % (Auto) 0.5 % 09/15/23 05:47 Neut % (Auto) 84.7 % 09/15/23 05:47 Lymph % (Auto) 4.4 % 09/15/23 05:47 [place] % (Auto) 10.1 % 09/15/23 05:47 Eos % (Auto) 0.1 % 09/15/23 05:47 Baso % (Auto) 0.2 % 09/15/23 05:47 Neut # (Auto) 14.39 K/uL (1.40-6.50) H 09/15/23 05:47 Lymph # (Auto) 0.75 K/uL (1.20-3.40) L 09/15/23 05:47 [place] # (Auto) 1.72 K/uL (0.11-0.59) H 09/15/23 05:47 Eos # (Auto) 0.01 K/uL (0.00-0.50) 09/15/23 05:47 Baso # (Auto) 0.03 K/uL (0.00-0.20) 09/15/23 05:47 Immature Gran # (Auto) 0.08 K/uL (0.01-0.20) 09/15/23 05:47 Sodium 130 mmol/L (136-145) L 09/15/23 07:55 Potassium 5.8 mmol/L (3.5-5.1) H 09/15/23 07:55 Chloride 99 mmol/L (98-107) 09/15/23 07:55 Carbon Dioxide 21 mmol/L (21-32) 09/15/23 07:55 Anion Gap 10 (3-11) 09/15/23 07:55 BUN 54 mg/dl (6-23) H 09/15/23 07:55 Creatinine 2.81 mg/dl (0.6-1.2) H D 09/15/23 07:55 Est Cr Clr Drug Dosing 18.0 ml/min 09/15/23 07:55 Est GFR ( Amer) 17.9 ml/min 09/15/23 07:55 Est GFR (Non-Af Amer) 15.5 ml/min 09/15/23 07:55 BUN/Creatinine Ratio 19.2 (10-20) 09/15/23 07:55 Glucose 240 mg/dl (70-99(Fasting)) H 09/15/23 07:55 POC Glucose 344 mg/dl (70-99) H* 09/15/23 11:32 Estimat Average Glucose 183 mg/dl 09/14/23 Unknown Hemoglobin A1c 8.0 % (4.5-5.6) H 09/14/23 Unknown Calcium 9.4 mg/dl (8.6-10.3) 09/15/23 07:55 Magnesium 1.7 mg/dl (1.7-2.4) 09/15/23 05:47 Total Bilirubin 0.4 mg/dl (0.2-1.0) 09/13/23 21:30 AST 15 U/L (13-39) 09/13/23 21:30 ALT 13 U/L (7-52) 09/13/23 21:30 Alkaline Phosphatase 71 U/L (34-104) 09/13/23 21:30 Total Creatine Kinase 78 U/L (26-192) 09/13/23 21:30 B-Natriuretic Peptide 75 pg/ml (0-100) 09/13/23 21:30 Total Protein 8.0 gm/dl (6.0-8.3) 09/13/23 21:30 Albumin 3.7 gm/dl (3.4-5.0) 09/13/23 21:30 Globulin 4.3 gm/dl (2.5-4.0) H 09/13/23 21:30 Albumin/Globulin Ratio 0.9 (0.9-2) 09/13/23 21:30 Impressions Venous Doppler Study 09/13/23 23:00 Exam(s): US VENOUS BILATERAL LOWER EXTREMITIES EXAM: US Duplex Bilateral Lower Extremities Veins CLINICAL HISTORY: Reason for exam: lower leg swelling. TECHNIQUE: Real-time duplex ultrasound scan of the bilateral lower extremity veins integrating B-mode two-dimensional vascular structure, Doppler spectral analysis, color flow Doppler imaging and compression. COMPARISON: No relevant prior studies available. FINDINGS: Veins: No DVT in the visualized veins, including the common femoral, superficial femoral, proximal deep femoral and popliteal veins. The veins demonstrate normal color flow, are normally compressible, with normal phasic flow and/or augmentation response. Soft tissues: No popliteal cyst. Mild edema. IMPRESSION: No DVT, bilaterally. Electronically signed by: Kylie Taveras M.D. 09/14/23 01:24 AM PG Care Time/CCT Total # of Minutes Spent Total Time Spent with Patient: Total time spent is greater than 50% in coordination of care (as documented) at patient's floor/unit and/or counseling patient: Coding Level of Care Code 44270 IN/OBS CONSULT LVL 5,80M Diagnoses Acute kidney injury N17.9 Chronic kidney disease, stage 4 (severe) N18.4 Hyperkalemia E87.5 Diabetes E11.9 Cellulitis of left lower leg L03.116
--- NOTE | 2023-09-15 12:18 | Electrocardiogram Report ---
Test Reason : Blood Pressure : / mmHG Vent. Rate : 098 BPM Atrial Rate : 098 BPM P-R Int : 168 ms QRS Dur : 076 ms QT Int : 338 ms P-R-T Axes : -15 002 035 degrees QTc Int : 431 ms Normal sinus rhythm Normal ECG When compared with ECG of 21-MAR-2005 10:17, Fusion complexes are no longer Present Confirmed by Derrick Matthews ([id number]) on 09/15/2023 12:17:45 PM Referred By: REFERRED SELF Confirmed By:Asaf Matthews
[2023-09-15] MEDS: FUROSEMIDE INJ 20 MG/2 ML VIAL IV ONE (12:32)
[2023-09-15 12:47] LABS: BUN Creatinine Ratio 19.9 (10-20); Calcium 9.3 mg/dl (8.6-10.3); Est GFR (African American) 16.8 ml/min; Est GFR (Non-African American) 14.5 ml/min; Magnesium 1.7 mg/dl (1.7-2.4); Potassium 4.8 mmol/L (3.5-5.1)
[2023-09-15] MEDS: oxyCODONE HCL IR 5 MG TAB (IMMEDIATE RELEASE) PO PRN (14:33)
[2023-09-15] MEDS ORDERED: POLYETHYLENE (MIRALAX) 17 GM PACK PO PRN (14:36)
[2023-09-15 16:34] LABS: BUN Creatinine Ratio 19.5 (10-20); Calcium 9.3 mg/dl (8.6-10.3); Creatinine Clr Calc Pharmacy 16.4 ml/min; Est GFR (African American) 16.1 ml/min; Est GFR (Non-African American) 13.9 ml/min; Potassium 4.6 mmol/L (3.5-5.1)
[2023-09-15] MEDS ORDERED: PIPERACILLIN/TAZOBACTAM 2.25 GM in DEXTROSE 5% MINI-B 100 ML IV SCH (17:00)
[2023-09-15] MEDS: PIPER/TAZO 4.5g in D5W MINI-B 100 ML IV ONE (17:10)
[2023-09-15] MEDS: POLYETHYLENE (MIRALAX) 17 GM PACK PO PRN (17:31)
--- NOTE | 2023-09-15 20:22 | Ultrasound Report ---
US renal/blad retro comp CLINICAL HISTORY: VALE TECHNIQUE: Multiple sonographic real-time images of the kidneys and bladder were obtained. COMPARISON: None available at the time of this dictation. FINDINGS: The right kidney measures 10.3 cm in length, and the left kidney measures 9.0 cm in length. The right kidney is normal in size, contour, cortical thickness, and echogenicity. No hydronephrosis is identified. A cyst is noted measuring 4.4 cm. The left kidney is normal in size, contour, cortical thickness and echogenicity. No hydronephrosis i s identified. Multiple cysts noted, the largest measuring 6.5 cm. The bladder is partially distended. No large intraluminal mass is seen. IMPRESSION: Unremarkable examination and in particular no evidence of hydronephrosis. ACT 112: Negative or not required by law. Electronically signed by: Juan Gaona M.D. 09/15/2023 8:20 PM
[2023-09-15 21:07] LABS: BUN Creatinine Ratio 19.7 (10-20); Calcium 9.1 mg/dl (8.6-10.3); Creatinine Clr Calc Pharmacy 15.8 ml/min; Est GFR (African American) 15.3 ml/min; Est GFR (Non-African American) 13.2 ml/min; Potassium 4.5 mmol/L (3.5-5.1)
[2023-09-16] MEDS: PIPER/TAZO 4.5g in D5W MINI-B 100 ML IV SCH (01:37)
[2023-09-16] MEDS: OLANZapine 10 MG/2.1 ML SDV IM STA (07:32)
[2023-09-16] MEDS: LANTUS PER UNIT CHARGE SQ SCH (08:20)
--- NOTE | 2023-09-16 08:34 | Nephrology Progress Note ---
Date of Service September 16, 2023 Assessment & Plan (1) Acute kidney injury: Plan: * VALE likely due to dehydration/cellulitis * Recommend d/c IVF and encourage oral hydration * 09/16/23 urinalysis reveals granular casts c/w ATN * 09/15/23 renal US - R 10.3, L 9.0. No obstruction. Large bilateral simple cysts reported * Monitor PRP (2) Chronic kidney disease, stage 4 (severe): Plan: * CKD stage G4 (advanced impairment). Baseline Cr 1.8 w/ EGFR 25 cc/min. CKD has been attributed to DKD (3) Hyperkalemia: Plan: * Corrected. Stop Lokelma. Monitor PRP (4) Diabetes: Plan: * Poor glycemic control. This is likely exacerbating hyperkalemia (5) Cellulitis of left lower leg: Plan: * Clinically improved * On IV Zosyn Admission and Anticipated Discharge Date Admission Date: September 14, 2023 Subjective Mrs. Villarreal was evaluated in her hospital room this morning. She was lethargic but did awaken to verbal stimuli and explained that she slept poorly last night. Mrs. Villarreal voiced no new medical concerns. Review of Systems Constitutional: no fever Eyes: no problem reported Ear, Nose, Mouth, Throat: no problem reported Respiratory: no cough and no dyspnea Cardiovascular: no chest pain Gastrointestinal: no nausea, no vomiting and no diarrhea/loose stools Physical Exam Constitutional: not in distress Eyes: PERRL, conjunctivae normal, anicteric sclerae ENMT: external ear and nose normal, oropharynx normal Neck: trachea midline, no thyromegaly Respiratory: normal respiratory effort, lungs clear to auscultation Cardiovascular: Rate/Rhythm: regular rate and regular rhythm Gastrointestinal (Abdomen): Inspection/Auscultation: normal bowel sounds Skin: no rashes, warm and dry Results & Data Vital Signs (Past 12 Hours) Vital Signs Temp Pulse Resp BP Pulse Ox O2 Del Method 09/16/23 07:16 36.8 C 99 H 18 181/66 H 94 Room Air 09/15/23 21:15 Room Air, Nasal Cannula 09/15/23 20:45 37.0 C 83 19 121/70 90 Room Air Laboratory Results Laboratory Results - last 48 hr 09/14/23 09/14/23 09/14/23 09:26 12:04 16:57 WBC 11.83 H RBC 3.23 L Hgb 9.5 L Hct 28.8 L MCV 89.2 MCH 29.4 MCHC 33.0 RDW Std Deviation 45.7 RDW Coeff of [place] 14.1 Plt Count 270 MPV 10.9 Immature Gran % (Auto) 0.7 Neut % (Auto) 72.6 Lymph % (Auto) 13.8 [place] % (Auto) 11.7 Eos % (Auto) 0.9 Baso % (Auto) 0.3 Neut # (Auto) 8.60 H Lymph # (Auto) 1.63 [place] # (Auto) 1.38 H Eos # (Auto) 0.11 Baso # (Auto) 0.03 Immature Gran # (Auto) 0.08 Sodium 132 L Potassium 4.4 Chloride 101 Carbon Dioxide 22 Anion Gap 9 BUN 49 H Creatinine 1.75 H Est Cr Clr Drug Dosing 28.8 Est GFR ( Amer) 31.8 Est GFR (Non-Af Amer) 27.4 BUN/Creatinine Ratio 28.0 H Glucose 203 H POC Glucose 192 H 193 H Osmolality Calcium 9.2 Phosphorus Magnesium 1.7 Urine Color Urine Appearance Urine pH Ur Specific [place] Urine Protein Urine Glucose (UA) Urine Ketones Urine Blood Urine Nitrite Urine Bilirubin Urine Urobilinogen Ur Leukocyte Esterase Urine WBC (Auto) Urine RBC (Auto) U Hyaline Cast (Auto) U Epithel Cells (Auto) Urine Bacteria (Auto) Granular Casts Ur Random Creatinine Ur Random Sodium 09/14/23 09/15/23 09/15/23 21:05 05:47 07:53 WBC 16.98 H RBC 3.48 L Hgb 10.1 L Hct 31.3 L MCV 89.9 MCH 29.0 MCHC 32.3 RDW Std Deviation 46.7 H RDW Coeff of [place] 14.2 Plt Count 354 MPV 10.7 Immature Gran % (Auto) 0.5 Neut % (Auto) 84.7 Lymph % (Auto) 4.4 [place] % (Auto) 10.1 Eos % (Auto) 0.1 Baso % (Auto) 0.2 Neut # (Auto) 14.39 H Lymph # (Auto) 0.75 L [place] # (Auto) 1.72 H Eos # (Auto) 0.01 Baso # (Auto) 0.03 Immature Gran # (Auto) 0.08 Sodium 132 L Potassium 5.8 H D Chloride 100 Carbon Dioxide 21 Anion Gap 11 BUN 50 H Creatinine 2.47 H D Est Cr Clr Drug Dosing 20.4 Est GFR ( Amer) 20.9 Est GFR (Non-Af Amer) 18.1 BUN/Creatinine Ratio 20.2 H Glucose 207 H POC Glucose 157 H 252 H Osmolality Calcium 9.6 Phosphorus Magnesium 1.7 Urine Color Urine Appearance Urine pH Ur Specific [place] Urine Protein Urine Glucose (UA) Urine Ketones Urine Blood Urine Nitrite Urine Bilirubin Urine Urobilinogen Ur Leukocyte Esterase Urine WBC (Auto) Urine RBC (Auto) U Hyaline Cast (Auto) U Epithel Cells (Auto) Urine Bacteria (Auto) Granular Casts Ur Random Creatinine Ur Random Sodium 09/15/23 09/15/23 09/15/23 07:55 11:31 11:32 WBC RBC Hgb Hct MCV MCH MCHC RDW Std Deviation RDW Coeff of [place] Plt Count MPV Immature Gran % (Auto) Neut % (Auto) Lymph % (Auto) [place] % (Auto) Eos % (Auto) Baso % (Auto) Neut # (Auto) Lymph # (Auto) [place] # (Auto) Eos # (Auto) Baso # (Auto) Immature Gran # (Auto) Sodium 130 L Potassium 5.8 H Chloride 99 Carbon Dioxide 21 Anion Gap 10 BUN 54 H Creatinine 2.81 H D Est Cr Clr Drug Dosing 18.0 Est GFR ( Amer) 17.9 Est GFR (Non-Af Amer) 15.5 BUN/Creatinine Ratio 19.2 Glucose 240 H POC Glucose 345 H* 344 H* Osmolality Calcium 9.4 Phosphorus Magnesium Urine Color Urine Appearance Urine pH Ur Specific [place] Urine Protein Urine Glucose (UA) Urine Ketones Urine Blood Urine Nitrite Urine Bilirubin Urine Urobilinogen Ur Leukocyte Esterase Urine WBC (Auto) Urine RBC (Auto) U Hyaline Cast (Auto) U Epithel Cells (Auto) Urine Bacteria (Auto) Granular Casts Ur Random Creatinine Ur Random Sodium 09/15/23 09/15/23 09/15/23 11:53 13:08 13:31 WBC RBC Hgb Hct MCV MCH MCHC RDW Std Deviation RDW Coeff of [place] Plt Count MPV Immature Gran % (Auto) Neut % (Auto) Lymph % (Auto) [place] % (Auto) Eos % (Auto) Baso % (Auto) Neut # (Auto) Lymph # (Auto) [place] # (Auto) Eos # (Auto) Baso # (Auto) Immature Gran # (Auto) Sodium 128 L Potassium 4.8 Chloride 98 Carbon Dioxide 20 L Anion Gap 10 BUN 59 H Creatinine 2.96 H Est Cr Clr Drug Dosing 17.0 Est GFR ( Amer) 16.8 Est GFR (Non-Af Amer) 14.5 BUN/Creatinine Ratio 19.9 Glucose 330 H* POC Glucose 352 H* 294 H Osmolality Calcium 9.3 Phosphorus 5.0 H Magnesium 1.7 Urine Color Urine Appearance Urine pH Ur Specific [place] Urine Protein Urine Glucose (UA) Urine Ketones Urine Blood Urine Nitrite Urine Bilirubin Urine Urobilinogen Ur Leukocyte Esterase Urine WBC (Auto) Urine RBC (Auto) U Hyaline Cast (Auto) U Epithel Cells (Auto) Urine Bacteria (Auto) Granular Casts Ur Random Creatinine Ur Random Sodium 09/15/23 09/15/23 09/15/23 16:03 16:40 20:25 WBC RBC Hgb Hct MCV MCH MCHC RDW Std Deviation RDW Coeff of [place] Plt Count MPV Immature Gran % (Auto) Neut % (Auto) Lymph % (Auto) [place] % (Auto) Eos % (Auto) Baso % (Auto) Neut # (Auto) Lymph # (Auto) [place] # (Auto) Eos # (Auto) Baso # (Auto) Immature Gran # (Auto) Sodium 130 L Potassium 4.6 Chloride 100 Carbon Dioxide 21 Anion Gap 9 BUN 60 H Creatinine 3.07 H Est Cr Clr Drug Dosing 16.4 Est GFR ( Amer) 16.1 Est GFR (Non-Af Amer) 13.9 BUN/Creatinine Ratio 19.5 Glucose 184 H POC Glucose 189 H 282 H Osmolality Calcium 9.3 Phosphorus Magnesium Urine Color Urine Appearance Urine pH Ur Specific [place] Urine Protein Urine Glucose (UA) Urine Ketones Urine Blood Urine Nitrite Urine Bilirubin Urine Urobilinogen Ur Leukocyte Esterase Urine WBC (Auto) Urine RBC (Auto) U Hyaline Cast (Auto) U Epithel Cells (Auto) Urine Bacteria (Auto) Granular Casts Ur Random Creatinine Ur Random Sodium 09/15/23 09/16/23 09/16/23 20:30 07:36 08:13 WBC 15.11 H RBC 3.26 L Hgb 9.3 L Hct 28.9 L MCV 88.7 MCH 28.5 MCHC 32.2 RDW Std Deviation 45.1 RDW Coeff of [place] 13.9 Plt Count 304 MPV 10.4 Immature Gran % (Auto) 0.6 Neut % (Auto) 88.1 Lymph % (Auto) 4.0 [place] % (Auto) 6.6 Eos % (Auto) 0.5 Baso % (Auto) 0.2 Neut # (Auto) 13.31 H Lymph # (Auto) 0.61 L [place] # (Auto) 0.99 H Eos # (Auto) 0.08 Baso # (Auto) 0.03 Immature Gran # (Auto) 0.09 Sodium 129 L 132 L Potassium 4.5 4.2 Chloride 99 100 Carbon Dioxide 20 L 20 L Anion Gap 10 12 H BUN 63 H 65 H Creatinine 3.20 H 3.25 H Est Cr Clr Drug Dosing 15.8 15.5 Est GFR ( Amer) 15.3 15.0 Est GFR (Non-Af Amer) 13.2 13.0 BUN/Creatinine Ratio 19.7 20.0 Glucose 256 H 221 H POC Glucose 227 H Osmolality 303 H Calcium 9.1 9.2 Phosphorus 4.5 Magnesium 1.7 Urine Color Urine Appearance Urine pH Ur Specific [place] Urine Protein Urine Glucose (UA) Urine Ketones Urine Blood Urine Nitrite Urine Bilirubin Urine Urobilinogen Ur Leukocyte Esterase Urine WBC (Auto) Urine RBC (Auto) U Hyaline Cast (Auto) U Epithel Cells (Auto) Urine Bacteria (Auto) Granular Casts Ur Random Creatinine Ur Random Sodium 09/16/23 09:20 WBC RBC Hgb Hct MCV MCH MCHC RDW Std Deviation RDW Coeff of [place] Plt Count MPV Immature Gran % (Auto) Neut % (Auto) Lymph % (Auto) [place] % (Auto) Eos % (Auto) Baso % (Auto) Neut # (Auto) Lymph # (Auto) [place] # (Auto) Eos # (Auto) Baso # (Auto) Immature Gran # (Auto) Sodium Potassium Chloride Carbon Dioxide Anion Gap BUN Creatinine Est Cr Clr Drug Dosing Est GFR ( Amer) Est GFR (Non-Af Amer) BUN/Creatinine Ratio Glucose POC Glucose Osmolality Calcium Phosphorus Magnesium Urine Color Yellow Urine Appearance Cloudy A Urine pH 5.0 Ur Specific [place] 1.013 Urine Protein 2+ H Urine Glucose (UA) Negative Urine Ketones Negative Urine Blood 2+ H Urine Nitrite Negative Urine Bilirubin Negative Urine Urobilinogen Negative Ur Leukocyte Esterase Negative Urine WBC (Auto) 0-5 Urine RBC (Auto) 0-2 U Hyaline Cast (Auto) 0-2 U Epithel Cells (Auto) 0-2 Urine Bacteria (Auto) None Seen Granular Casts Present A Ur Random Creatinine 76.5 Ur Random Sodium 27 PG Care Time/CCT Total # of Minutes Spent Total Time Spent with Patient: Total time spent is greater than 50% in coordination of care (as documented) at patient's floor/unit and/or counseling patient: Coding Level of Care Code 36285 SUB INP/OBS CARE 3/50MIN Diagnoses Acute kidney injury N17.9 Chronic kidney disease, stage 4 (severe) N18.4 Hyperkalemia E87.5 Diabetes E11.9 Cellulitis of left lower leg L03.116
[2023-09-16 08:38] LABS: Basophils # (auto) 0.03 K/uL (0.00-0.20); Basophils % (auto) 0.2 %; Eosinophils # (auto) 0.08 K/uL (0.00-0.50); Eosinophils % (auto) 0.5 %; Hematocrit (blood only) 28.9 % (37.0-47.0); Hemoglobin 9.3 g/dl (12.0-16.0); Immature Granulocytes # (auto) 0.09 K/uL (0.01-0.20); Immature Granulocytes % (auto) 0.6 %; Lymphocytes # (auto) 0.61 K/uL (1.20-3.40); Mean Corpuscular Hemoglobin 28.5 pg (25.0-34.0); Mean Corpuscular Hgb Conc 32.2 g/dL (32.0-36.0); Mean Corpuscular Volume 88.7 fL (80.0-100.0); Mean Platelet Volume 10.4 fL (9.4-12.4); Monocytes # (auto) 0.99 K/uL (0.11-0.59); Monocytes % (auto) 6.6 %; Neutrophils # (auto) 13.31 K/uL (1.40-6.50); Neutrophils % (auto) 88.1 %; Platelet Count 304 K/uL (130-400); RDW Coefficient of Variation 13.9 % (11.5-14.5); RDW Standard Deviation 45.1 fL (36.4-46.3); Red Blood Count 3.26 M/uL (4.20-5.40); White Blood Count 15.11 K/ul (4.8-10.8)
--- NOTE | 2023-09-16 08:45 | XRay Report ---
XR chest 1V portable CLINICAL HISTORY: Renal failure. COMPARISON STUDY: No previous studies for comparison. FINDINGS: There is no pneumothorax or pleural effusion. Mild right basilar opacity favors atelectasis . Cardiomegaly without evidence for pulmonary edema. No consolidation is identified suggest pneumonia . There is a focal contour abnormality of the descending thoracic aorta. IMPRESSION: 1. No acute cardiopulmonary findings. Cardiomegaly without radiographic evidence for pulmonary edema. 2. Focal contour abnormality of the descending thoracic aorta. This could reflect focal dilatation or tortuosity of the aorta. ACT 112: Negative or not required by law. Electronically signed by: Alexander Jackson M.D. 09/16/2023 8:44 AM
[2023-09-16] MEDS ORDERED: OLANZapine 10 MG/2.1 ML SDV IM PRN (09:37)
[2023-09-16 09:53] LABS: Calcium 9.2 mg/dl (8.6-10.3); Creatinine Clr Calc Pharmacy 15.5 ml/min; Magnesium 1.7 mg/dl (1.7-2.4); Phosphorus 4.5 mg/dl (2.5-4.9); Potassium 4.2 mmol/L (3.5-5.1)
[2023-09-16 09:56] LABS: Appearance Urine Cloudy (Clear); Bacteria Urine Automated None Seen (None Seen); Bilirubin Urine Negative (Negative); Blood Urine 2+ (Negative); Color Urine Yellow; Epithelial Cell Urine Auto 0-2 /hpf (0-2); Glucose Urine UA Negative (Negative); Ketones Urine Negative (Negative); Leukocyte Esterase Urine Negative (Negative); Nitrite Urine Negative (Negative); Protein Urine 2+ (Negative); RBC Urine Automated 0-2 /hpf (0-2); Specific Gravity Urine 1.013 (1.000-1.030); Urobilinogen Urine Negative (Negative); WBC Urine Automated 0-5 /hpf (0-5)
[2023-09-16 09:59] LABS: Creatinine Urine Random 76.5 mg/dl
[2023-09-16 10:04] LABS: Cast Urine Automated 0-2 /lpf (0-2)
[2023-09-16 10:05] LABS: Granular Casts Urine Present /lpf (None Prsent)
--- NOTE | 2023-09-16 12:07 | Hospitalist Progress Note ---
Date of Service September 16, 2023 Assessment & Plan (1) Acute kidney injury superimposed on CKD: Plan: Due to volume depletion. Unfortunately, her creatinine has bumped up further to 3.2. Serum osmolarity 303. She is volume depleted. IV fluids have been up tapered. Kay catheter has been placed for accurate monitoring of urine output. Serial labs ordered. Appreciate nephrology consultation and recommendations. Renal ultrasound negative for obstruction or hydronephrosis. (2) Hyperkalemia: Plan: Corrected with Lokelma. Serial labs. (3) Paranoia: Plan: With agitation. She received IM Zyprexa this morning. Will continue Zyprexa IM on a as needed basis. Supportive care. is present and is aware. (4) Cellulitis of left lower leg: Plan: Exam consistent with cellulitis. No signs of DVT on US. She is now on Zosyn. Fortunately, blood cultures remain negative. (5) Bilateral leg weakness: Plan: this is a chronic and progressive issue. Suspect deconditioning and fear of ambulation contributing with fall worsening symptoms. Continue OT and PT. (6) Pelvis fracture: Plan: Patient saw ortho 09/11. Conservative nonoperative treatment recommended. (7) Diabetic retinopathy associated with controlled type 2 diabetes mellitus: Plan: ADA diet. Sliding scale coverage. Basal insulin therapy. Lantus dosage uptitrated today, September 15, for better diabetic control. (8) Hypertension: Plan: Stable. Continue current medical management as needed Plan To be determined. OT and PT assessments requested Admission and Anticipated Discharge Date Admission Date: September 16, 2023 Subjective The patient is sedated after receiving Zyprexa IM for agitation. I spoke to her at length. Serum osmolarity is 303 and her tongue is dry. Portable chest x-ray is negative for pneumonia or CHF. IV fluids have been increased to 150 cc/h. Creatinine has risen to 3.2. Fortunately, with Lokelma her potassium is down to 4.5. Appreciate nephrology consultation and recommendations. Renal ultrasound is negative for obstruction or hydronephrosis. Sodium remains low at 129 but should improve with rehydration. Kay catheter has been placed to monitor intake and output and for hygiene purposes. Lantus has been uptitrated for better glucose control. Review of Systems 2 Review of Systems: The patient is unable to answer any questions regarding review of systems at this time Physical Exam 2 Physical Exam: General-somnolent after receiving IM Zyprexa. No fevers HEENT-head atraumatic and normocephalic Neck-no lymphadenopathy or thyromegaly, trachea midline Chest-clear to auscultation. No rales, wheezing or rhonchi Cardiac-regular rate and rhythm, normal S1 and S2 Abdomen-normal bowel sounds, no hepatosplenomegaly Extremities-no cyanosis, clubbing, or edema Neuro-cranial nerves II through XII intact, motor and sensory function within normal limits, strength symmetrical, no focal deficits Psych-normal affect, normal mood Results & Data Results & Data Vital Signs (Past 12 Hours) Vital Signs Temp Pulse Resp BP Pulse Ox O2 Del Method O2 Flow Rate 09/16/23 09:15 84 L Room Air 0 09/16/23 09:15 96 Nasal Cannula 2 09/16/23 09:15 84 L Room Air 09/16/23 07:30 Nasal Cannula 2 09/16/23 07:16 36.8 C 99 H 18 181/66 H 94 Room Air Laboratory Results 09/16/23 08:13 09/16/23 08:13 PG Care Time/CCT Total # of Minutes Spent Total Time Spent with Patient: Total time spent is greater than 50% in coordination of care (as documented) at patient's floor/unit and/or counseling patient: Coding Level of Care Code 94420 SUB INP/OBS CARE 3/50MIN Diagnoses Acute kidney injury superimposed on CKD N17.9; N18.9 Hyperkalemia E87.5 Paranoia F22 Cellulitis of left lower leg L03.116 Bilateral leg weakness R29.898 Pelvis fracture S32.9XXA Diabetic retinopathy associated with controlled type 2 diabetes mellitus E11.319 Essential hypertension I10 Hypertension type: essential hypertension (8) Hypertension Hypertension type: essential hypertension Qualified Code(s): I10 - Essential (primary) hypertension
[2023-09-16] MEDS: MELATONIN 3 MG TAB PO PRN (20:53)
[2023-09-17 07:31] LABS: Basophils # (auto) 0.03 K/uL (0.00-0.20); Basophils % (auto) 0.3 %; Eosinophils # (auto) 0.19 K/uL (0.00-0.50); Eosinophils % (auto) 1.6 %; Hemoglobin 9.2 g/dl (12.0-16.0); Immature Granulocytes # (auto) 0.06 K/uL (0.01-0.20); Immature Granulocytes % (auto) 0.5 %; Lymphocytes # (auto) 1.32 K/uL (1.20-3.40); Lymphocytes % (auto) 11.2 %; Mean Corpuscular Hgb Conc 32.9 g/dL (32.0-36.0); Mean Corpuscular Volume 88.3 fL (80.0-100.0); Mean Platelet Volume 10.7 fL (9.4-12.4); Monocytes # (auto) 0.96 K/uL (0.11-0.59); Monocytes % (auto) 8.2 %; Neutrophils # (auto) 9.21 K/uL (1.40-6.50); Neutrophils % (auto) 78.2 %; Platelet Count 330 K/uL (130-400); RDW Standard Deviation 45.5 fL (36.4-46.3); Red Blood Count 3.17 M/uL (4.20-5.40); White Blood Count 11.77 K/ul (4.8-10.8)
--- NOTE | 2023-09-17 08:34 | Nephrology Progress Note ---
Date of Service September 17, 2023 Assessment & Plan (1) Acute kidney injury: Plan: * VALE likely due to dehydration/cellulitis * Continue to encourage oral hydration * 09/16/23 urinalysis reveals granular casts c/w ATN * 09/15/23 renal US - R 10.3, L 9.0. No obstruction. Large bilateral simple cysts reported * Patient is now in the recovery phase of ATN. She is nonoliguric and Cr has improved from 3.25 to 2.82 * Monitor PRP * Consider d/c Kay once patient is able to get OOB and use BR (2) Chronic kidney disease, stage 4 (severe): Plan: * CKD stage G4 (advanced impairment). Baseline Cr 1.8 w/ EGFR 25 cc/min. CKD has been attributed to DKD (3) Hyperkalemia: Plan: * Corrected. Stop Lokelma. Monitor PRP (4) Diabetes: Plan: * Poor glycemic control has exacerbated hyperkalemia (5) Cellulitis of left lower leg: Plan: * Clinically improved * On IV Zosyn Admission and Anticipated Discharge Date Admission Date: September 16, 2023 Subjective Mrs. Villarreal was evaluated in her hospital room this morning. She was much more alert. She had several questions about her diabetes management. Mrs. Villarreal voiced no other medical concerns. She is anxious to leave the hospital Review of Systems Constitutional: no fever Eyes: no problem reported Ear, Nose, Mouth, Throat: no problem reported Respiratory: no cough and no dyspnea Cardiovascular: no chest pain Gastrointestinal: no nausea, no vomiting and no diarrhea/loose stools Integumentary: + erythema (dorsum L foot) Psychiatric: + problem reported Physical Exam Constitutional: not in distress Eyes: PERRL, conjunctivae normal, anicteric sclerae ENMT: external ear and nose normal, oropharynx normal Neck: trachea midline, no thyromegaly Respiratory: normal respiratory effort, lungs clear to auscultation Cardiovascular: Rate/Rhythm: regular rate and regular rhythm Gastrointestinal (Abdomen): Inspection/Auscultation: normal bowel sounds Skin: no rashes, warm and dry Neurologic: Speech / Cognition: + abnormal cognition (tangential speech) Psychiatric: Mood: + irritable mood Results & Data Vital Signs (Past 12 Hours) Vital Signs Temp Pulse Resp BP Pulse Ox O2 Del Method O2 Flow Rate 09/17/23 07:39 180/82 H 09/17/23 07:15 36.8 C 78 16 192/80 H 95 Nasal Cannula 3 09/16/23 22:26 Room Air 09/16/23 20:46 37.1 C 83 18 169/79 H 93 Room Air Laboratory Results Laboratory Results - last 24 hr 09/16/23 09/16/23 09/16/23 09:20 11:30 16:55 WBC RBC Hgb Hct MCV MCH MCHC RDW Std Deviation RDW Coeff of [place] Plt Count MPV Immature Gran % (Auto) Neut % (Auto) Lymph % (Auto) [place] % (Auto) Eos % (Auto) Baso % (Auto) Neut # (Auto) Lymph # (Auto) [place] # (Auto) Eos # (Auto) Baso # (Auto) Immature Gran # (Auto) Sodium Potassium Chloride Carbon Dioxide Anion Gap BUN Creatinine Est Cr Clr Drug Dosing Est GFR ( Amer) Est GFR (Non-Af Amer) BUN/Creatinine Ratio Glucose POC Glucose 225 H 202 H Calcium Phosphorus Magnesium Urine Color Yellow Urine Appearance Cloudy A Urine pH 5.0 Ur Specific [place] 1.013 Urine Protein 2+ H Urine Glucose (UA) Negative Urine Ketones Negative Urine Blood 2+ H Urine Nitrite Negative Urine Bilirubin Negative Urine Urobilinogen Negative Ur Leukocyte Esterase Negative Urine WBC (Auto) 0-5 Urine RBC (Auto) 0-2 U Hyaline Cast (Auto) 0-2 U Epithel Cells (Auto) 0-2 Urine Bacteria (Auto) None Seen Granular Casts Present A Ur Random Creatinine 76.5 Ur Random Sodium 27 09/16/23 09/17/23 09/17/23 20:42 05:59 07:38 WBC 11.77 H RBC 3.17 L Hgb 9.2 L Hct 28.0 L MCV 88.3 MCH 29.0 MCHC 32.9 RDW Std Deviation 45.5 RDW Coeff of [place] 14.0 Plt Count 330 MPV 10.7 Immature Gran % (Auto) 0.5 Neut % (Auto) 78.2 Lymph % (Auto) 11.2 [place] % (Auto) 8.2 Eos % (Auto) 1.6 Baso % (Auto) 0.3 Neut # (Auto) 9.21 H Lymph # (Auto) 1.32 [place] # (Auto) 0.96 H Eos # (Auto) 0.19 Baso # (Auto) 0.03 Immature Gran # (Auto) 0.06 Sodium 139 Potassium 4.1 Chloride 105 Carbon Dioxide 23 Anion Gap 11 BUN 63 H Creatinine 2.82 H D Est Cr Clr Drug Dosing 17.9 Est GFR ( Amer) 17.8 Est GFR (Non-Af Amer) 15.4 BUN/Creatinine Ratio 22.3 H Glucose 148 H POC Glucose 226 H 173 H Calcium 9.4 Phosphorus 4.7 Magnesium 1.8 Urine Color Urine Appearance Urine pH Ur Specific [place] Urine Protein Urine Glucose (UA) Urine Ketones Urine Blood Urine Nitrite Urine Bilirubin Urine Urobilinogen Ur Leukocyte Esterase Urine WBC (Auto) Urine RBC (Auto) U Hyaline Cast (Auto) U Epithel Cells (Auto) Urine Bacteria (Auto) Granular Casts Ur Random Creatinine Ur Random Sodium PG Care Time/CCT Total # of Minutes Spent Total Time Spent with Patient: Total time spent is greater than 50% in coordination of care (as documented) at patient's floor/unit and/or counseling patient: Coding Level of Care Code 06585 SUB INP/OBS CARE 3/50MIN Diagnoses Acute kidney injury N17.9 Chronic kidney disease, stage 4 (severe) N18.4 Hyperkalemia E87.5 Diabetes E11.9 Cellulitis of left lower leg L03.116
[2023-09-17 09:15] LABS: BUN Creatinine Ratio 22.3 (10-20); Calcium 9.4 mg/dl (8.6-10.3); Creatinine Clr Calc Pharmacy 17.9 ml/min; Est GFR (African American) 17.8 ml/min; Est GFR (Non-African American) 15.4 ml/min; Magnesium 1.8 mg/dl (1.7-2.4); Phosphorus 4.7 mg/dl (2.5-4.9); Potassium 4.1 mmol/L (3.5-5.1)
[2023-09-17] MEDS: amLODIPine BESYLATE 5 MG TAB PO SCH (10:19)
[2023-09-17] MEDS: SODIUM CHLORIDE 0.9% 1,000 ML IV SCH (10:19)
--- NOTE | 2023-09-17 11:33 | XRay Report ---
XR knee RT 3V CLINICAL HISTORY: Right knee pain following fall. COMPARISON: Right knee radiographs September 06, 2023. FINDINGS: Alignment of the right knee is anatomic. There is no acute fracture. Chondrocalcinosis wit hin the menisci is incidentally noted. A moderate size joint effusion has increased in size. There is no lipohemarthrosis. Joint spaces are preserved. Patellar spurring is present. IMPRESSION: 1. No fractures within the right knee. 2. Increase in size of a moderate right knee joint effusion. 3. Mild right knee osteoarthritis. ACT 112: Negative or not required by law. Electronically signed by: Alexander Jackson M.D. 09/17/2023 11:32 AM
--- NOTE | 2023-09-17 11:41 | Hospitalist Progress Note ---
Date of Service September 17, 2023 Assessment & Plan (1) Acute kidney injury superimposed on CKD: Plan: Due to volume depletion. Her creatinine bumped up but is now downtrending with IV fluids. Creatinine 2.8 today, September 16. Serum osmolarity elevated at 303. She was volume depleted on admission. Continue IV fluids. Kay catheter has been placed for accurate monitoring of urine output. Serial labs ordered. Appreciate nephrology consultation and recommendations. Renal ultrasound negative for obstruction or hydronephrosis. (2) Hyperkalemia: Plan: Corrected with Lokelma. Serial labs. (3) Paranoia: Plan: With agitation. Now resolved. Will use Zyprexa IM on a as needed basis. Supportive care. (4) Cellulitis of left lower leg: Plan: Exam consistent with cellulitis. No signs of DVT on US. She is now on Zosyn. Fortunately, blood cultures remain negative. (5) Bilateral leg weakness: Plan: this is a chronic and progressive issue. Suspect deconditioning and fear of ambulation contributing with fall worsening symptoms. Continue OT and PT. (6) Pelvis fracture: Plan: Patient saw ortho 09/11. Conservative nonoperative treatment recommended. (7) Diabetic retinopathy associated with controlled type 2 diabetes mellitus: Plan: ADA diet. Sliding scale coverage. Basal insulin therapy. Lantus dosage uptitrated today, September 15, for better diabetic control. (8) Hypertension: Plan: Amlodipine 5 mg daily started today, September 16, for better blood pressure control. She states she was on this in the past. (9) Right knee pain: Plan: X-rays reveal osteoarthritis and moderate effusion. Venous Doppler previously negative earlier this admission. Orthopedic consultation requested Plan She is agreeable to going to SNF or IPR at the time of discharge later this week. To be determined. Admission and Anticipated Discharge Date Admission Date: September 16, 2023 Subjective Clinically improved. She is awake and alert without any delirium. Amlodipine started for blood pressure control. She states she was taking this in the past. Glucose has improved to 148 after Lantus uptitrated yesterday, September 15. Creatinine is downtrending to 2.8 with IV fluids. Potassium is 4.1. Sodium now normal at 139. OT and PT recommend either SNF or IPR placement at discharge and she is agreeable. Review of Systems 2 Review of Systems: Constitutional-no fever or chills ENT-no blurred vision, no double vision, no epistaxis, no sore throat Respiratory-no cough, no wheezing, no shortness of breath Cardiac-no palpitations, no chest pain, no syncope GI-no nausea, vomiting, diarrhea, melena, hematochezia -no urinary retention, no urinary incontinence, no dysuria, no hematuria Musculoskeletal-right knee discomfort and swelling. No muscle tenderness Skin-no bruising, no rashes, no pruritus Neuro-no isolated weakness, no paresthesia, no weakness Psych-no depression, no anxiety Physical Exam 2 Physical Exam: General-alert and oriented. No fevers HEENT-head atraumatic and normocephalic Neck-no lymphadenopathy or thyromegaly, trachea midline Chest-clear to auscultation. No rales, wheezing or rhonchi Cardiac-regular rate and rhythm, normal S1 and S2 Abdomen-normal bowel sounds, no hepatosplenomegaly Extremities-no cyanosis, clubbing, or edema. Right knee tenderness and swelling noted with limited range of motion Neuro-cranial nerves II through XII intact, motor and sensory function within normal limits, strength symmetrical, no focal deficits Psych-normal affect, normal mood Results & Data Results & Data Vital Signs (Past 12 Hours) Vital Signs Temp Pulse Resp BP Pulse Ox O2 Del Method O2 Flow Rate 09/17/23 09:16 Room Air 09/17/23 07:39 180/82 H 09/17/23 07:15 36.8 C 78 16 192/80 H 95 Nasal Cannula 3 Laboratory Results 09/17/23 05:59 09/17/23 05:59 PG Care Time/CCT Total # of Minutes Spent Total Time Spent with Patient: Total time spent is greater than 50% in coordination of care (as documented) at patient's floor/unit and/or counseling patient: Coding Level of Care Code 28679 SUB INP/OBS CARE 3/50MIN Diagnoses Acute kidney injury superimposed on CKD N17.9; N18.9 Hyperkalemia E87.5 Paranoia F22 Cellulitis of left lower leg L03.116 Bilateral leg weakness R29.898 Pelvis fracture S32.9XXA Diabetic retinopathy associated with controlled type 2 diabetes mellitus E11.319 Essential hypertension I10 Hypertension type: essential hypertension Right knee pain M25.561 (8) Hypertension Hypertension type: essential hypertension Qualified Code(s): I10 - Essential (primary) hypertension
--- NOTE | 2023-09-17 13:32 | Orthopedic Consultation ---
Date of Service September 17, 2023 Assessment & Plan (1) Bilateral knee effusions: She was seen and examined by Dr. Castorena today as well. This might be an episode of pseudogout. We recommended aspirating her knees today and she agreed to proceed. We will send the fluid for analysis, check crp and esr. She might bene fit from some prednisone but we will leave that up to the hospitalist service, as her blood glucose is elevated. Depending on the results, we might consider intraarticular steroid injections as well. Procedure notes: Right knee was sterilely prepped with alcohol and using aseptic technique 35 ml's of serous fluid was aspirated from the knee joint. There was a tinge of blood at the end. She tolerated the procedure well. No complications. Left knee was sterilely prepped with alcohol and using aseptic technique 30 ml's of serous fluid was aspirated from the knee joints. She tolerated the procedure well. No complications. History of Present Illness Reason for Consultation: . Requesting Physician: . Attending Physician: Tez Powell MD . Saige is a 78 year old patient that I saw in clinic on 09/12/23 for hip pain, bilateral knee pain, and bilateral foot pain after a fall down about 13 stairs. Initially, she was able to ambulate but her pain and function worsened. She was seen in the ER and had some xrays of the right foot/ankle and knee. I did new xrays of her knees, bilateral foot/ankle, and her hips. There was possibly a pelvis fracture. I recommended use of a walker and a walking boot on the left foot. She later presented to the ER and was admitted with concerns of cellulitis in the left foot/leg. She is complaining of knee pain. She did have new xrays of the right knee. Allergies Allergy/AdvReac Type Severity Reaction Status Date / Time tree and shrub pollen Allergy Intermediate ITCHY Verified 09/13/23 22:00 EYES, SNEEZING, CONGESTION CODY Inhibitors AdvReac Intermediate Cough Verified 09/13/23 22:00 clarithromycin AdvReac Intermediate Vomiting Verified 09/13/23 22:00 Macrolide Antibiotics AdvReac Intermediate Vomiting Verified 09/13/23 22:00 Home Medications Medication Instructions Recorded Confirmed Type acetaminophen 500 mg tablet 500 mg PO Q6H PRN Pain 01/13/19 09/13/23 History lancets 33 gauge (OneTouch Delica #100 ea 01/13/19 07/05/23 History Lancets) multivitamin 1 tab PO DAILY 01/13/19 09/13/23 History ascorbic acid (vitamin C) 1,000 mg 1 gm PO DAILY 01/16/19 09/13/23 History tablet cholecalciferol (vitamin D3) 125 5,000 unit PO DAILY #90 caps 02/25/20 09/13/23 Rx mcg (5,000 unit) capsule cyanocobalamin (vitamin B-12) 500 500 mcg PO DAILY #30 tabs 06/27/21 09/13/23 Rx mcg tablet BD Ultra-Fine Ольга Pen Needle 32 #400 ea 11/14/22 07/05/23 Rx gauge x 5/32" (pen needle, diabetic) atorvastatin 20 mg tablet 20 mg PO DAILY #90 tabs 04/11/23 09/13/23 Rx magnesium chloride 71.5 mg 143 mg (2 x 71.5 mg) PO BID #360 06/19/23 09/13/23 Rx (magnesium chloride) tabs tablet,delayed release (Slow-Mag) sertraline 50 mg tablet 100 mg (2 x 50 mg) PO DAILY #180 08/13/23 09/13/23 Rx tabs OneTouch Verio test strips (blood #400 ea 08/23/23 Rx sugar diagnostic) tramadol 50 mg tablet 50 - 100 mg (1 - 2 x 50 mg) PO Q6H 09/12/23 09/13/23 Rx PRN pain #20 tabs insulin aspart U-100 100 unit/mL 4 - 5 unit subcut TIDM 09/13/23 09/16/23 History (3 mL) subcutaneous pen (Novolog FlexPen U-100 Insulin aspart) insulin glargine 100 unit/mL (3 26 unit subcut HS 09/13/23 09/16/23 History mL) subcutaneous pen (Basaglar KwikPen U-100 Insulin) Past Med/Surg History Problem List Right knee pain Paranoia Acute kidney injury superimposed on CKD Diabetes Hyperkalemia Chronic kidney disease, stage 4 (severe) Acute kidney injury Anemia Bilateral leg weakness Hypomagnesemia (Acute) Cellulitis of left lower leg (Acute) Foot sprain Bilateral primary osteoarthritis of knee Knee contusion Bilateral knee effusions Pelvis fracture (~09/12/23) bilateral hip stress fractures from a fall-saw orthopedics Left foot pain Right ankle sprain (Acute) Acute pain of right knee (Acute) Fall (Acute) Type 2 diabetes mellitus with hypoglycemia Vitamin D deficiency B12 deficiency Hypertension (Chronic) Hyperlipidemia (Chronic) Diabetic retinopathy associated with controlled type 2 diabetes mellitus (Chronic) Diabetic nephropathy associated with type 2 diabetes mellitus (Chronic) Type 2 diabetes mellitus (Chronic) Pyriformis syndrome (Chronic) Pseudogout of knee (Acute) Memory loss, short term (Acute) Asthma (Acute) Chronic SI joint pain Driving safety issue Chronic cough Cognitive complaints Medical History CKD (chronic kidney disease), stage III Surgical History History of hysterectomy Family History Father Diabetes Macular degeneration Lung disease Mother Heart disease Hyperlipidemia Dementia Social History Smoking Status: Never smoker Second Hand Exposure: No; Do You Dip or Chew Tobacco: No; Hx Alcohol Use: No Hx Substance Use: No Preferred Language: Afghan Communication Ability: Effective Assistant Associate Professor Required: No Beliefs That Will Affect Care: None marital status: Current Living Situation: Spouse current occupational status: retired Other Information That Helps Us Care for You: No Feels Safe at Home: Yes Safety Concerns: Feels Safe At This Time Assistive Devices: Cane and Walker Review of Systems All systems reviewed & are unremarkable except as noted in HPI & below. Physical Exam .She is alert and oriented. NAD. No pain with range of motion of bilateral hips. She has knee effusions today. She can do a straight leg raise. No erythema. She has painful knee range of motion. Results & Data Results & Data Laboratory Results . Diagnostic Findings . Right knee xray shows some mild DJD, chondrocalcinosis, knee effusion, no fracture or dislocation PG Care Time/CCT Total # of Minutes Spent Total Time Spent with Patient: Total time spent is greater than 50% in coordination of care (as documented) at patient's floor/unit and/or counseling patient: Coding Level of Care Code 63699 IN/OBS CONSULT LVL 3,45M (25 - SIGNIFICANT, SEPARATELY IDENTIFIABLE ) Diagnoses Bilateral knee effusions M25.461; M25.462
[2023-09-17 14:50] LABS: Appearance Synovial Fluid Cloudy; Color Synovial Fluid Yellow; Mononuclear WBC Synovial 22.3 %; Polynuclear WBC Synovial 77.7 %; RBC Synovial Fluid Auto 3000 /uL; Source Synovial Fluid Left Knee; WBC Synovial Fluid Auto 1845 /ul (0-200)
[2023-09-17 14:52] LABS: Appearance Synovial Fluid Cloudy; Color Synovial Fluid Amber; Mononuclear WBC Synovial 17.3 %; Polynuclear WBC Synovial 82.7 %; RBC Synovial Fluid Auto 13000 /uL; Source Synovial Fluid Right Knee; WBC Synovial Fluid Auto 2737 /ul (0-200)
[2023-09-17] MEDS: LANTUS PER UNIT CHARGE SQ SCH (20:07)
[2023-09-18] MEDS: ACETAMINOPHEN 325 MG TAB PO PRN (01:51)
[2023-09-18 07:36] LABS: Basophils # (auto) 0.03 K/uL (0.00-0.20); Basophils % (auto) 0.3 %; Eosinophils # (auto) 0.31 K/uL (0.00-0.50); Hematocrit (blood only) 26.6 % (37.0-47.0); Hemoglobin 8.6 g/dl (12.0-16.0); Immature Granulocytes # (auto) 0.08 K/uL (0.01-0.20); Immature Granulocytes % (auto) 0.8 %; Lymphocytes # (auto) 1.76 K/uL (1.20-3.40); Lymphocytes % (auto) 17.1 %; Mean Corpuscular Hemoglobin 29.1 pg (25.0-34.0); Mean Corpuscular Hgb Conc 32.3 g/dL (32.0-36.0); Mean Corpuscular Volume 89.9 fL (80.0-100.0); Mean Platelet Volume 10.2 fL (9.4-12.4); Monocytes # (auto) 0.88 K/uL (0.11-0.59); Monocytes % (auto) 8.6 %; Neutrophils # (auto) 7.22 K/uL (1.40-6.50); Neutrophils % (auto) 70.2 %; Platelet Count 319 K/uL (130-400); RDW Coefficient of Variation 14.1 % (11.5-14.5); RDW Standard Deviation 46.5 fL (36.4-46.3); Red Blood Count 2.96 M/uL (4.20-5.40); White Blood Count 10.28 K/ul (4.8-10.8)
[2023-09-18 08:03] LABS: BUN Creatinine Ratio 20.3 (10-20); Creatinine Clr Calc Pharmacy 20.5 ml/min; Est GFR (Non-African American) 18.2 ml/min
--- NOTE | 2023-09-18 08:48 | Nephrology Progress Note ---
Date of Service September 18, 2023 Assessment & Plan (1) Acute kidney injury: Plan: * VALE likely due to dehydration/cellulitis * Continue to encourage oral hydration * 09/16/23 urinalysis reveals granular casts c/w ATN * 09/15/23 renal US - R 10.3, L 9.0. No obstruction. Large bilateral simple cysts reported * Patient is now in the recovery phase of ATN. She is nonoliguric and Cr has improved from 3.25 to 2.46 * Monitor PRP * Consider d/c Kay once patient is able to get OOB and use BR (2) Chronic kidney disease, stage 4 (severe): Plan: * CKD stage G4 (advanced impairment). Baseline Cr 1.8 w/ EGFR 25 cc/min. CKD has been attributed to DKD (3) Hyperkalemia: Plan: * Corrected (4) Diabetes: Plan: * Poor glycemic control has exacerbated hyperkalemia (5) Cellulitis of left lower leg: Plan: * Clinically improved * On IV Zosyn Admission and Anticipated Discharge Date Admission Date: September 16, 2023 Subjective Mrs. Villarreal was evaluated in her hospital room this morning. She was visiting w/ her and voiced no new medical concerns. She remains anxious to leave the hospital Review of Systems Constitutional: no fever Eyes: no problem reported Ear, Nose, Mouth, Throat: no problem reported Respiratory: no cough and no dyspnea Cardiovascular: no chest pain Gastrointestinal: no nausea, no vomiting and no diarrhea/loose stools Integumentary: + erythema (dorsum L foot) Psychiatric: + problem reported Physical Exam Constitutional: not in distress Eyes: PERRL, conjunctivae normal, anicteric sclerae ENMT: external ear and nose normal, oropharynx normal Neck: trachea midline, no thyromegaly Respiratory: normal respiratory effort, lungs clear to auscultation Cardiovascular: Rate/Rhythm: regular rate and regular rhythm Gastrointestinal (Abdomen): Inspection/Auscultation: normal bowel sounds Skin: no rashes, warm and dry Neurologic: Speech / Cognition: + abnormal cognition (tangential speech) Psychiatric: Mood: + irritable mood Results & Data Vital Signs (Past 12 Hours) Vital Signs Temp Pulse Resp BP BP Pulse Ox O2 Del Method 09/18/23 07:23 36.3 C L 67 18 183/81 H 98 Nasal Cannula 09/18/23 00:00 70 158/75 H 09/17/23 22:47 Nasal Cannula O2 Flow Rate 09/18/23 07:23 2 09/18/23 00:00 09/17/23 22:47 2 Laboratory Results Laboratory Results - last 24 hr 09/17/23 09/17/23 09/17/23 05:59 11:42 11:48 WBC RBC Hgb Hct MCV MCH MCHC RDW Std Deviation RDW Coeff of Haider Plt Count MPV Immature Gran % (Auto) Neut % (Auto) Lymph % (Auto) [place] % (Auto) Eos % (Auto) Baso % (Auto) Neut # (Auto) Lymph # (Auto) [place] # (Auto) Eos # (Auto) Baso # (Auto) Immature Gran # (Auto) ESR Sodium 139 Potassium 4.1 Chloride 105 Carbon Dioxide 23 Anion Gap 11 BUN 63 H Creatinine 2.82 H D Est Cr Clr Drug Dosing 17.9 Est GFR ( Amer) 17.8 Est GFR (Non-Af Amer) 15.4 BUN/Creatinine Ratio 22.3 H Glucose 148 H POC Glucose 293 H 305 H* Calcium 9.4 Phosphorus 4.7 Magnesium 1.8 C-Reactive Protein Fluid Comment Synovial Source Synovial Color Synovial Appearance Synovial WBC (Auto) Synovial RBC (Auto) Synovial Polynuclear % Synovial Mononuclear % Synovial Crystals 09/17/23 09/17/23 09/17/23 13:30 13:30 13:30 WBC RBC Hgb Hct MCV MCH MCHC RDW Std Deviation RDW Coeff of Haider Plt Count MPV Immature Gran % (Auto) Neut % (Auto) Lymph % (Auto) [place] % (Auto) Eos % (Auto) Baso % (Auto) Neut # (Auto) Lymph # (Auto) [place] # (Auto) Eos # (Auto) Baso # (Auto) Immature Gran # (Auto) ESR Sodium Potassium Chloride Carbon Dioxide Anion Gap BUN Creatinine Est Cr Clr Drug Dosing Est GFR ( Amer) Est GFR (Non-Af Amer) BUN/Creatinine Ratio Glucose POC Glucose Calcium Phosphorus Magnesium C-Reactive Protein Fluid Comment Synovial Source Left Knee Right Knee Synovial Color Yellow Synovial Appearance Synovial WBC (Auto) Synovial RBC (Auto) Synovial Polynuclear % Synovial Mononuclear % Synovial Crystals 09/17/23 09/17/23 09/17/23 13:30 13:30 13:30 WBC RBC Hgb Hct MCV MCH MCHC RDW Std Deviation RDW Coeff of Haider Plt Count MPV Immature Gran % (Auto) Neut % (Auto) Lymph % (Auto) [place] % (Auto) Eos % (Auto) Baso % (Auto) Neut # (Auto) Lymph # (Auto) [place] # (Auto) Eos # (Auto) Baso # (Auto) Immature Gran # (Auto) ESR Sodium Potassium Chloride Carbon Dioxide Anion Gap BUN Creatinine Est Cr Clr Drug Dosing Est GFR ( Amer) Est GFR (Non-Af Amer) BUN/Creatinine Ratio Glucose POC Glucose Calcium Phosphorus Magnesium C-Reactive Protein Fluid Comment Synovial Source Synovial Color Megan Synovial Appearance Cloudy Cloudy Synovial WBC (Auto) 1845 H 2737 H Synovial RBC (Auto) 3000 Synovial Polynuclear % Synovial Mononuclear % Synovial Crystals 09/17/23 09/17/23 09/17/23 13:30 13:30 13:30 WBC RBC Hgb Hct MCV MCH MCHC RDW Std Deviation RDW Coeff of Haider Plt Count MPV Immature Gran % (Auto) Neut % (Auto) Lymph % (Auto) [place] % (Auto) Eos % (Auto) Baso % (Auto) Neut # (Auto) Lymph # (Auto) [place] # (Auto) Eos # (Auto) Baso # (Auto) Immature Gran # (Auto) ESR Sodium Potassium Chloride Carbon Dioxide Anion Gap BUN Creatinine Est Cr Clr Drug Dosing Est GFR ( Amer) Est GFR (Non-Af Amer) BUN/Creatinine Ratio Glucose POC Glucose Calcium Phosphorus Magnesium C-Reactive Protein Fluid Comment Synovial Source Synovial Color Synovial Appearance Synovial WBC (Auto) Synovial RBC (Auto) 68314 Synovial Polynuclear % 77.7 82.7 Synovial Mononuclear % 22.3 17.3 Synovial Crystals 09/17/23 09/17/23 09/17/23 13:30 13:51 16:46 WBC RBC Hgb Hct MCV MCH MCHC RDW Std Deviation RDW Coeff of Haider Plt Count MPV Immature Gran % (Auto) Neut % (Auto) Lymph % (Auto) [place] % (Auto) Eos % (Auto) Baso % (Auto) Neut # (Auto) Lymph # (Auto) [place] # (Auto) Eos # (Auto) Baso # (Auto) Immature Gran # (Auto) ESR 77 H Sodium Potassium Chloride Carbon Dioxide Anion Gap BUN Creatinine Est Cr Clr Drug Dosing Est GFR ( Amer) Est GFR (Non-Af Amer) BUN/Creatinine Ratio Glucose POC Glucose 192 H Calcium Phosphorus Magnesium C-Reactive Protein 13.13 H Fluid Comment Synovial Source Synovial Color Synovial Appearance Synovial WBC (Auto) Synovial RBC (Auto) Synovial Polynuclear % Synovial Mononuclear % Synovial Crystals 09/17/23 09/18/23 09/18/23 20:03 07:00 07:53 WBC 10.28 RBC 2.96 L Hgb 8.6 L Hct 26.6 L MCV 89.9 MCH 29.1 MCHC 32.3 RDW Std Deviation 46.5 H RDW Coeff of Haider 14.1 Plt Count 319 MPV 10.2 Immature Gran % (Auto) 0.8 Neut % (Auto) 70.2 Lymph % (Auto) 17.1 [place] % (Auto) 8.6 Eos % (Auto) 3.0 Baso % (Auto) 0.3 Neut # (Auto) 7.22 H Lymph # (Auto) 1.76 [place] # (Auto) 0.88 H Eos # (Auto) 0.31 Baso # (Auto) 0.03 Immature Gran # (Auto) 0.08 ESR Sodium 141 Potassium 4.0 Chloride 110 H Carbon Dioxide 24 Anion Gap 7 BUN 50 H Creatinine 2.46 H D Est Cr Clr Drug Dosing 20.5 Est GFR ( Amer) 21.0 Est GFR (Non-Af Amer) 18.2 BUN/Creatinine Ratio 20.3 H Glucose 112 H POC Glucose 267 H 123 H Calcium 9.0 Phosphorus 4.0 Magnesium C-Reactive Protein Fluid Comment Synovial Source Synovial Color Synovial Appearance Synovial WBC (Auto) Synovial RBC (Auto) Synovial Polynuclear % Synovial Mononuclear % Synovial Crystals PG Care Time/CCT Total # of Minutes Spent Total Time Spent with Patient: Total time spent is greater than 50% in coordination of care (as documented) at patient's floor/unit and/or counseling patient: Coding Level of Care Code 90236 SUB INP/OBS CARE 3/50MIN Diagnoses Acute kidney injury N17.9 Chronic kidney disease, stage 4 (severe) N18.4 Hyperkalemia E87.5 Diabetes E11.9 Cellulitis of left lower leg L03.116
[2023-09-18] MEDS: amLODIPine BESYLATE 5 MG TAB PO ONE (09:31)
--- NOTE | 2023-09-18 10:58 | Orthopedic Progress Note ---
Date of Service September 18, 2023 Assessment & Plan (1) Bilateral knee effusions: She was seen and examined by Dr. Castorena. Doing better after aspirating her knees yesterday. Crystal analysis was negative for gout/pseudogout. Will continue with current management. She believes a new antibiotic was started as well as a steroid, though I don't see steroid ordered right now. We could possibly do steroid injections for her knees but her glucose has been elevated. She is feeling better so we will wait on the injections at this time and plan to see her back in clinic as scheduled, which is in about 2 weeks. Subjective .78 year old patient, admitted for cellulitis, now 1 day s/p bilateral knee aspirations. She says she is feeling better, less knee pain. Review of Systems All systems reviewed & are unremarkable except as noted in HPI & below. Physical Exam .alert and oriented. NAD Bilateral knees: minimal effusions, improved from yesterday. Some swelling to the left foot, but no erythema. Results & Data Results & Data Laboratory Results .labs reviewed from the aspirations yesterday: Right knee with 2737 wbc with 82.7 % polys Left knee with 1845 wbc with 77.7% polys esr 77 crp13.13 Diagnostic Findings . PG Care Time/CCT Total # of Minutes Spent Total Time Spent with Patient: Total time spent is greater than 50% in coordination of care (as documented) at patient's floor/unit and/or counseling patient: Coding Level of Care Code 25707 SUB INP/OBS CARE 2/35MIN Diagnoses Bilateral knee effusions M25.461; M25.462
--- NOTE | 2023-09-18 12:58 | Hospitalist Progress Note ---
Date of Service September 18, 2023 Assessment & Plan (1) Acute kidney injury superimposed on CKD: Plan: Due to volume depletion. Her creatinine bumped up but is now downtrending with IV fluids. Creatinine down to 2.4 today, September 17. Serum osmolarity elevated at 303. She was volume depleted on admission. Continue IV fluids at a lower rate. Kay catheter has been placed for accurate monitoring of urine output. This will be removed prior to discharge. Serial labs ordered. Appreciate nephrology consultation and recommendations. Renal ultrasound negative for obstruction or hydronephrosis. (2) Hyperkalemia: Plan: Corrected with Lokelma. Serial labs. (3) Paranoia: Plan: With agitation. Now resolved. Will use Zyprexa IM on a as needed basis. Supportive care. (4) Cellulitis of left lower leg: Plan: Exam consistent with cellulitis. No signs of DVT on US. She is now on Zosyn, day 5. Fortunately, blood cultures remain negative. (5) Bilateral leg weakness: Plan: this is a chronic and progressive issue. Suspect deconditioning and fear of ambulation contributing with fall worsening symptoms. Continue OT and PT. (6) Pelvis fracture: Plan: Patient saw ortho 09/11. Conservative nonoperative treatment recommended. (7) Diabetic retinopathy associated with controlled type 2 diabetes mellitus: Plan: ADA diet. Sliding scale coverage. Basal insulin therapy. Glucose fairly well- controlled on current Lantus dosage. (8) Hypertension: Plan: Amlodipine 5 mg daily started on September 16 for better blood pressure control. She states she was on this in the past. The dosage was uptitrated to 10 mg daily today, September 17 (9) Right knee pain: Plan: X-rays reveal osteoarthritis and moderate effusion. Venous Doppler previously negative earlier this admission. Orthopedic consultation appreciated. She underwent aspiration of both knees yesterday, September 16. Fortunately, no crystals were seen in the fluid. She is now on prednisone 10 mg 3 times a day which will be gradually tapered off. It appears the effusions are due to underlying degenerative joint disease Plan She is agreeable to going to SNF or [facility] at the time of discharge when arrangements are finalized. She could possibly leave as early as tomorrow, September 18. Admission and Anticipated Discharge Date Admission Date: September 16, 2023 Subjective Alert and oriented. No distress. She underwent bilateral knee aspirations yesterday, September 16. Fortunately, no crystals seen in the fluid. Oral prednisone has been started. Amlodipine up titrated today to 10 mg daily for better blood pressure control. She remains on intravenous Zosyn, day 5 of antibiotic therapy, for the left foot cellulitis. Creatinine is downtrending further to 2.4 with IV fluids. Potassium stable at 4.0. Sodium now normal at 141. Review of Systems 2 Review of Systems: Constitutional-no fever or chills ENT-no blurred vision, no double vision, no epistaxis, no sore throat Respiratory-no cough, no wheezing, no shortness of breath Cardiac-no palpitations, no chest pain, no syncope GI-no nausea, vomiting, diarrhea, melena, hematochezia -no urinary retention, no urinary incontinence, no dysuria, no hematuria Musculoskeletal-right knee swelling has lessened after aspiration. No muscle tenderness Skin-no bruising, no rashes, no pruritus Neuro-no isolated weakness, no paresthesia, no weakness Psych-no depression, no anxiety Physical Exam 2 Physical Exam: General-alert and oriented. No fevers HEENT-head atraumatic and normocephalic Neck-no lymphadenopathy or thyromegaly, trachea midline Chest-clear to auscultation. No rales, wheezing or rhonchi Cardiac-regular rate and rhythm, normal S1 and S2 Abdomen-normal bowel sounds, no hepatosplenomegaly Extremities-no cyanosis, clubbing, or edema. Right knee tenderness and swelling has lessened after aspiration. Range of motion remains slightly limited. Neuro-cranial nerves II through XII intact, motor and sensory function within normal limits, strength symmetrical, no focal deficits Psych-normal affect, normal mood Results & Data Results & Data Vital Signs (Past 12 Hours) Vital Signs Temp Pulse Resp BP Pulse Ox O2 Del Method O2 Flow Rate 09/18/23 09:39 Room Air 09/18/23 07:23 36.3 C L 67 18 183/81 H 98 Nasal Cannula 2 Laboratory Results 09/18/23 07:00 09/18/23 07:00 PG Care Time/CCT Total # of Minutes Spent Total Time Spent with Patient: Total time spent is greater than 50% in coordination of care (as documented) at patient's floor/unit and/or counseling patient: Coding Level of Care Code 93441 SUB INP/OBS CARE 3/50MIN Diagnoses Acute kidney injury superimposed on CKD N17.9; N18.9 Hyperkalemia E87.5 Paranoia F22 Cellulitis of left lower leg L03.116 Bilateral leg weakness R29.898 Pelvis fracture S32.9XXA Diabetic retinopathy associated with controlled type 2 diabetes mellitus E11.319 Essential hypertension I10 Hypertension type: essential hypertension Right knee pain M25.561 (8) Hypertension Hypertension type: essential hypertension Qualified Code(s): I10 - Essential (primary) hypertension
[2023-09-18] MEDS: predniSONE 10 MG TABLET PO SCH (15:42)
[2023-09-19] MEDS: hydrALAZINE HCL 20 MG/ML VIAL IV ONE (03:12)
[2023-09-19 07:10] LABS: Basophils # (auto) 0.03 K/uL (0.00-0.20); Basophils % (auto) 0.3 %; Hematocrit (blood only) 28.1 % (37.0-47.0); Hemoglobin 9.2 g/dl (12.0-16.0); Immature Granulocytes # (auto) 0.11 K/uL (0.01-0.20); Immature Granulocytes % (auto) 0.9 %; Lymphocytes # (auto) 0.85 K/uL (1.20-3.40); Lymphocytes % (auto) 7.2 %; Mean Corpuscular Hgb Conc 32.7 g/dL (32.0-36.0); Mean Corpuscular Volume 88.6 fL (80.0-100.0); Mean Platelet Volume 10.3 fL (9.4-12.4); Monocytes # (auto) 0.62 K/uL (0.11-0.59); Monocytes % (auto) 5.3 %; Neutrophils # (auto) 10.14 K/uL (1.40-6.50); Neutrophils % (auto) 86.3 %; Platelet Count 324 K/uL (130-400); RDW Coefficient of Variation 13.9 % (11.5-14.5); RDW Standard Deviation 45.1 fL (36.4-46.3); Red Blood Count 3.17 M/uL (4.20-5.40); White Blood Count 11.75 K/ul (4.8-10.8)
[2023-09-19 07:30] LABS: BUN Creatinine Ratio 20.4 (10-20); Calcium 8.8 mg/dl (8.6-10.3); Creatinine Clr Calc Pharmacy 27.1 ml/min; Est GFR (African American) 29.5 ml/min; Est GFR (Non-African American) 25.5 ml/min; Potassium 4.1 mmol/L (3.5-5.1)
[2023-09-19] MEDS: amLODIPine BESYLATE 5 MG TAB PO SCH (07:40)
--- NOTE | 2023-09-19 08:40 | Nephrology Progress Note ---
Date of Service September 19, 2023 Assessment & Plan (1) Acute kidney injury: Plan: * VALE resolved (Cr 1.8 today) * Will d/c IVF * Recommend d/c Kay once patient is able to get OOB and use BR * No further Nephrology evaluation indicated at this time. Will sign off. Please call if further assistance is needed (2) Chronic kidney disease, stage 4 (severe): Plan: * CKD stage G4 (advanced impairment). Baseline Cr 1.8 w/ EGFR 25 cc/min. CKD has been attributed to DKD (3) Hyperkalemia: Plan: * Corrected (4) Cellulitis of left lower leg: Plan: * Resolved * Consider d/c IV Zosyn Admission and Anticipated Discharge Date Admission Date: September 16, 2023 Subjective Mrs. Villarreal was evaluated in her hospital room this morning. She is tolerating IV hydration without dyspnea or angina. She is anxious to have PT today and hopes to start using BC and remove Kay catheter Review of Systems Constitutional: no fever Eyes: no problem reported Ear, Nose, Mouth, Throat: no problem reported Respiratory: no cough and no dyspnea Cardiovascular: no chest pain Gastrointestinal: no nausea, no vomiting and no diarrhea/loose stools Physical Exam Constitutional: not in distress Eyes: PERRL, conjunctivae normal, anicteric sclerae ENMT: external ear and nose normal, oropharynx normal Neck: trachea midline, no thyromegaly Respiratory: normal respiratory effort, lungs clear to auscultation Cardiovascular: Rate/Rhythm: regular rate and regular rhythm Gastrointestinal (Abdomen): Inspection/Auscultation: normal bowel sounds Skin: no rashes, warm and dry Results & Data Vital Signs (Past 12 Hours) Vital Signs Temp Pulse Resp BP BP Pulse Ox O2 Del Method 09/19/23 08:04 Nasal Cannula 09/19/23 07:32 76 188/62 H 09/19/23 07:29 36.7 C 43 L 18 202/43 H 195/65 H 98 Nasal Cannula 09/19/23 05:45 205/80 H 09/19/23 03:52 89 204/87 H 09/19/23 02:25 85 202/101 H 09/18/23 23:19 36.5 C 84 18 199/96 H 99 Nasal Cannula 09/18/23 22:23 Room Air O2 Flow Rate 09/19/23 08:04 2 09/19/23 07:32 09/19/23 07:29 3.5 09/19/23 05:45 09/19/23 03:52 09/19/23 02:25 09/18/23 23:19 3 09/18/23 22:23 Laboratory Results Laboratory Results - last 24 hr 09/18/23 09/18/23 09/18/23 11:33 16:51 20:23 WBC RBC Hgb Hct MCV MCH MCHC RDW Std Deviation RDW Coeff of Haider Plt Count MPV Immature Gran % (Auto) Neut % (Auto) Lymph % (Auto) Cameron % (Auto) Eos % (Auto) Baso % (Auto) Neut # (Auto) Lymph # (Auto) Cameron # (Auto) Eos # (Auto) Baso # (Auto) Immature Gran # (Auto) Sodium Potassium Chloride Carbon Dioxide Anion Gap BUN Creatinine Est Cr Clr Drug Dosing Est GFR ( Amer) Est GFR (Non-Af Amer) BUN/Creatinine Ratio Glucose POC Glucose 264 H 146 H 236 H Calcium 09/19/23 09/19/23 06:29 07:40 WBC 11.75 H RBC 3.17 L Hgb 9.2 L Hct 28.1 L MCV 88.6 MCH 29.0 MCHC 32.7 RDW Std Deviation 45.1 RDW Coeff of Haider 13.9 Plt Count 324 MPV 10.3 Immature Gran % (Auto) 0.9 Neut % (Auto) 86.3 Lymph % (Auto) 7.2 Cameron % (Auto) 5.3 Eos % (Auto) 0.0 Baso % (Auto) 0.3 Neut # (Auto) 10.14 H Lymph # (Auto) 0.85 L Cameron # (Auto) 0.62 H Eos # (Auto) 0.00 Baso # (Auto) 0.03 Immature Gran # (Auto) 0.11 Sodium 138 Potassium 4.1 Chloride 108 H Carbon Dioxide 23 Anion Gap 7 BUN 38 H Creatinine 1.86 H D Est Cr Clr Drug Dosing 27.1 Est GFR ( Amer) 29.5 Est GFR (Non-Af Amer) 25.5 BUN/Creatinine Ratio 20.4 H Glucose 182 H POC Glucose 191 H Calcium 8.8 PG Care Time/CCT Total # of Minutes Spent Total Time Spent with Patient: Total time spent is greater than 50% in coordination of care (as documented) at patient's floor/unit and/or counseling patient: Coding Level of Care Code 46346 SUB INP/OBS CARE 50MIN Diagnoses Acute kidney injury N17.9 Chronic kidney disease, stage 4 (severe) N18.4 Hyperkalemia E87.5 Cellulitis of left lower leg L03.116
[2023-09-19] MEDS: hydrALAZINE 10 MG TAB PO SCH (11:28)
--- NOTE | 2023-09-19 12:16 | Hospitalist Progress Note ---
Date of Service September 19, 2023 Assessment & Plan (1) Acute kidney injury superimposed on CKD: Plan: Due to volume depletion. Her creatinine bumped up but is now downtrending with IV fluids. Creatinine down to 1.8 today, September 18. Serum osmolarity elevated on admission at 303. She was volume depleted on admission. Continue IV fluids at current rate. Kay catheter has been placed for accurate monitoring of urine output. This will be removed prior to discharge. Serial labs ordered. Appreciate nephrology consultation and recommendations. Renal ultrasound negative for obstruction or hydronephrosis. (2) Hyperkalemia: Plan: Corrected with Lokelma. Potassium is now stable. Serial labs. (3) Paranoia: Plan: With agitation. Now resolved. Will use Zyprexa IM on a as needed basis. Supportive care. (4) Cellulitis of left lower leg: Plan: Exam consistent with cellulitis. No signs of DVT on US. She is now on Zosyn, day 6. Fortunately, blood cultures remain negative. (5) Bilateral leg weakness: Plan: this is a chronic and progressive issue. Suspect deconditioning and fear of ambulation contributing with fall worsening symptoms. Continue OT and PT. (6) Pelvis fracture: Plan: Patient saw ortho 09/11. Conservative nonoperative treatment recommended. (7) Diabetic retinopathy associated with controlled type 2 diabetes mellitus: Plan: ADA diet. Sliding scale coverage. Basal insulin therapy. Glucose fairly well- controlled on current Lantus dosage. (8) Hypertension: Plan: Amlodipine 5 mg daily started on September 16 for better blood pressure control. She states she was on this in the past. The dosage was uptitrated to 10 mg daily on September 17. Oral hydralazine was added today, September 18 (9) Right knee pain: Plan: X-rays reveal osteoarthritis and moderate effusion. Venous Doppler previously negative earlier this admission. Orthopedic consultation appreciated. She underwent aspiration of both knees on September 16. Fortunately, no crystals were seen in the fluid. She is now on prednisone 10 mg 3 times a day which will be gradually tapered off. It appears the effusions are due to underlying degenerative joint disease Plan Anticipate discharge to [facility] tomorrow, September 19 Admission and Anticipated Discharge Date Admission Date: September 16, 2023 Subjective Alert and oriented at the time of my examination although her states that her mental status waxes and wanes. Hydralazine added to amlodipine for better blood pressure control. Creatinine continues to improve down to 1.8. She remains on IV fluids at 70 mL/h. Zosyn day 6 for the left foot cellulitis. Potassium stable at 4.1. Addition of oral prednisone has helped with the right knee pain. This will eventually be tapered off. She will go to [facility] tomorrow, September 19 Review of Systems 2 Review of Systems: Constitutional-no fever or chills ENT-no blurred vision, no double vision, no epistaxis, no sore throat Respiratory-no cough, no wheezing, no shortness of breath Cardiac-no palpitations, no chest pain, no syncope GI-no nausea, vomiting, diarrhea, melena, hematochezia -no urinary retention, no urinary incontinence, no dysuria, no hematuria Musculoskeletal-right knee swelling has lessened after aspiration. No muscle tenderness Skin-no bruising, no rashes, no pruritus Neuro-no isolated weakness, no paresthesia, no weakness Psych-no depression, no anxiety Physical Exam 2 Physical Exam: General-alert and oriented. No fevers HEENT-head atraumatic and normocephalic Neck-no lymphadenopathy or thyromegaly, trachea midline Chest-clear to auscultation. No rales, wheezing or rhonchi Cardiac-regular rate and rhythm, normal S1 and S2 Abdomen-normal bowel sounds, no hepatosplenomegaly Extremities-no cyanosis, clubbing, or edema. Right knee tenderness and swelling has lessened after aspiration. Range of motion remains slightly limited. Neuro-cranial nerves II through XII intact, motor and sensory function within normal limits, strength symmetrical, no focal deficits Psych-normal affect, normal mood Results & Data Results & Data Vital Signs (Past 12 Hours) Vital Signs Temp Pulse Resp BP BP Pulse Ox O2 Del Method 09/19/23 09:55 84 18 166/75 H 94 Room Air 09/19/23 08:04 Nasal Cannula 09/19/23 07:32 76 188/62 H 09/19/23 07:29 36.7 C 43 L 18 202/43 H 195/65 H 98 Nasal Cannula 09/19/23 05:45 205/80 H 09/19/23 03:52 89 204/87 H 09/19/23 02:25 85 202/101 H O2 Flow Rate 09/19/23 09:55 09/19/23 08:04 2 09/19/23 07:32 09/19/23 07:29 3.5 09/19/23 05:45 09/19/23 03:52 09/19/23 02:25 Laboratory Results 09/19/23 06:29 09/19/23 06:29 PG Care Time/CCT Total # of Minutes Spent Total Time Spent with Patient: Total time spent is greater than 50% in coordination of care (as documented) at patient's floor/unit and/or counseling patient: Coding Level of Care Code 49705 SUB INP/OBS CARE 3/50MIN Diagnoses Acute kidney injury superimposed on CKD N17.9; N18.9 Hyperkalemia E87.5 Paranoia F22 Cellulitis of left lower leg L03.116 Bilateral leg weakness R29.898 Pelvis fracture S32.9XXA Diabetic retinopathy associated with controlled type 2 diabetes mellitus E11.319 Essential hypertension I10 Hypertension type: essential hypertension Right knee pain M25.561 (8) Hypertension Hypertension type: essential hypertension Qualified Code(s): I10 - Essential (primary) hypertension
[2023-09-19] MEDS: CALCIUM CARBONATE 500 MG CHEWABLE TAB PO PRN (21:01)
[2023-09-19] MEDS: LANTUS PER UNIT CHARGE SQ SCH (21:03)
[2023-09-20 08:36] LABS: Basophils # (auto) 0.03 K/uL (0.00-0.20); Basophils % (auto) 0.2 %; Eosinophils # (auto) 0.01 K/uL (0.00-0.50); Eosinophils % (auto) 0.1 %; Hematocrit (blood only) 30.8 % (37.0-47.0); Hemoglobin 10.2 g/dl (12.0-16.0); Immature Granulocytes # (auto) 0.25 K/uL (0.01-0.20); Immature Granulocytes % (auto) 1.7 %; Lymphocytes # (auto) 1.51 K/uL (1.20-3.40); Lymphocytes % (auto) 10.2 %; Mean Corpuscular Hemoglobin 28.9 pg (25.0-34.0); Mean Corpuscular Hgb Conc 33.1 g/dL (32.0-36.0); Mean Corpuscular Volume 87.3 fL (80.0-100.0); Mean Platelet Volume 10.4 fL (9.4-12.4); Monocytes # (auto) 0.82 K/uL (0.11-0.59); Monocytes % (auto) 5.6 %; Neutrophils # (auto) 12.13 K/uL (1.40-6.50); Neutrophils % (auto) 82.2 %; Platelet Count 417 K/uL (130-400); RDW Coefficient of Variation 14.2 % (11.5-14.5); RDW Standard Deviation 45.3 fL (36.4-46.3); Red Blood Count 3.53 M/uL (4.20-5.40); White Blood Count 14.75 K/ul (4.8-10.8)
[2023-09-20 08:55] LABS: BUN Creatinine Ratio 21.4 (10-20); Calcium 9.5 mg/dl (8.6-10.3); Est GFR (African American) 29.3 ml/min; Est GFR (Non-African American) 25.3 ml/min; Potassium 3.9 mmol/L (3.5-5.1)
[2023-09-20] MEDS: hydrALAZINE HCL 25 MG TAB PO SCH (10:45)
--- NOTE | 2023-09-20 10:49 | Discharge Summary ---
Date of Service September 20, 2023 Admission HPI Per Admitting Provider 78 y/o female with a PMHx of T2DM insulin dependent, HLD, VitD, and VitB12 deficiencies here for bilateral foot swelling and pain. Patient fell down the stairs about a week ago. Was initially sore, but doing okay and able to ambulate. Pain worsened, so she was seen by ortho outpatient. They did multiple XRs really only significant for nondisplaced left sided pelvic fracture. Recommended conservative measures at that time with repeat XR pelvis in 3-4 weeks. Patient did have pain/swelling/redness of her left foot/calf at that time. Note mentions mild erythema left foot. No intervention recommended. Patient started on CTX in the ED. Given morphine and zofran. Bilateral dopplers ordered. Hospitalist service consulted. Upon my interview, patient is resting comfortably. No f/c/n/v/abdominal pain, CP, or SOB. Does state that her right foot was initially erythematous and now it is her left. Principal Diagnosis Acute on chronic kidney disease stage IV, hyperkalemia, hyponatremia, left foot cellulitis, essential hypertension, right knee pain and knee effusion due to underlying degenerative joint disease Discharge Exam General-alert and oriented. No fevers HEENT-head atraumatic and normocephalic Neck-no lymphadenopathy or thyromegaly, trachea midline Chest-clear to auscultation. No rales, wheezing or rhonchi Cardiac-regular rate and rhythm, normal S1 and S2 Abdomen-normal bowel sounds, no hepatosplenomegaly Extremities-no cyanosis, clubbing, or edema. Right knee tenderness and swelling has lessened after aspiration. Range of motion remains slightly limited. Neuro-cranial nerves II through XII intact, motor and sensory function within normal limits, strength symmetrical, no focal deficits Psych-normal affect, normal mood Discharge Data Allergies Allergy/AdvReac Type Severity Reaction Status Date / Time tree and shrub pollen Allergy Intermediate ITCHY Verified 09/13/23 22:00 EYES, SNEEZING, CONGESTION CODY Inhibitors AdvReac Intermediate Cough Verified 09/13/23 22:00 clarithromycin AdvReac Intermediate Vomiting Verified 09/13/23 22:00 Macrolide Antibiotics AdvReac Intermediate Vomiting Verified 09/13/23 22:00 Consultations 09/13/23 23:28 ED Decision to Admit Stat 09/15/23 10:08 Consult Nephrology Routine 09/17/23 11:39 Consult Orthopedic Surgery Routine Ordered Studies 09/13/23 23:00 US venous doppler LE BI Stat 09/15/23 12:04 US renal/blad retro comp Routine Hospital Course (1) Acute kidney injury superimposed on CKD: Due to volume depletion. Her creatinine bumped up but is now downtrending with IV fluids. Creatinine down to 1.8 now. Serum osmolarity elevated on admiss ion at 303. She was volume depleted on admission. Treated while hospitalized with IV fluids. Kay catheter was placed for accurate monitoring of urine output but will be removed prior to discharge today, September 19. Appreciate nephrology consultation and recommendations. Renal ultrasound negative for obstruction or hydronephrosis. (2) Hyperkalemia: Corrected with Lokelma. Potassium is now normal and stable. Serial labs. (3) Paranoia: With agitation. Now resolved. Will use Zyprexa IM on a as needed basis. Supportive care. (4) Cellulitis of left lower leg: Exam consistent with cellulitis. No signs of DVT on US. Treated while hospitalized with 7 days of intravenous Zosyn. Resolved. Fortunately, blood cultures remain negative. (5) Bilateral leg weakness: this is a chronic and progressive issue. Suspect deconditioning and fear of ambulation contributing with fall worsening symptoms. Continue OT and PT. (6) Pelvis fracture: Patient saw ortho 09/11. Conservative nonoperative treatment recommended. (7) Diabetic retinopathy associated with controlled type 2 diabetes mellitus: ADA diet. Sliding scale coverage. Basal insulin therapy. Glucose fairly well- controlled on current Lantus dosage. (8) Hypertension: Amlodipine 5 mg daily started on September 16 for better blood pressure control. She states she was on this in the past. The dosage was uptitrated to 10 mg daily on September 17. Hydralazine was added September 18 and dosage uptitrated today, September 19. (9) Right knee pain: X-rays reveal osteoarthritis and moderate effusion. Venous Doppler previously negative earlier this admission. Orthopedic consultation appreciated. She underwent aspiration of both knees on September 16. Fortunately, no crystals were seen in the fluid. She is now on prednisone which has been down titrated today, September 19, and eventually will be weaned off. It appears the knee effusions are due to underlying degenerative joint disease Plan Discharge to [facility] today, September 19 Total Time Total Time Spent Total Time Spent (In Minutes): 50 minutes Discharge Plan Discharge Items Patient Disposition: Transfer Snf Fac Reason For Visit: CELLULITIS Discharge Diagnosis: Acute on chronic kidney disease stage IV, hyperkalemia, hyponatremia, left foot cellulitis, essential hypertension, right knee pain and effusion due to DJD Condition on Discharge: Good Activity: Resume your previous activity Non-emergency contact: Primary Care Provider Call non-emergency contact if: you have any medication questions and your symptoms worsen Follow-up/Referrals: Rola Fofana MD [Primary Care Provider] - Diet: Carb Consistent or DM2 and Heart Healthy Addtl Attending Provider Instructions: Prednisone will gradually be tapered off which was administered for the knee pain and knee fluid. Hydralazine has been started for better blood pressure control. Antibiotic treatment has been finished. Potassium is now normal. Addtl Colon Therapist Provider Instructions: ENDOCRINOLOGY INSULIN PLAN: - Basaglar 26 units at bedtime - Novolog 4-5 units with meals; Max 8 units - Ask Milo about severe low blood sugar treatment options- Gvoke (prefilled p en glucagon) or Baqsimi (nasal spray glucagon). - Can purchase cake decorating icing. Squeeze this into side of cheek. Rub cheek to absorb. - Notify Milo if blood sugar levels are frequently above or below targets. - Before Meals: 90-150 - 1-2 hours After Meals: Less than 200 Pending Studies at Discharge: No Stand-Alone Forms: My [employer] Skilled Items Patient informed of condition?: Yes DNR: No Discharge Level of Care: Skilled Communicable Disease: No Discharge Prognosis: Stable Lines: None Urinary Catheter: No Medications and DC Order Prescriptions: New hydralazine 25 mg Tablet 25 mg PO TID Qty: 30 0RF amlodipine [Norvasc] 5 mg Tablet 10 mg PO QAM Qty: 10 0RF prednisone 10 mg Tablet See Rx Instructions .ROUTE .COMPLEX Qty: 9 0RF Rx Instructions: 10 mg orally twice a day for 3 days, then once a day for 3 days, then stop polyethylene glycol 3350 [Miralax] 17 gram Powder In Packet 17 g PO DAILY PRN (Reason: constipation) Qty: 0 0RF Continued cyanocobalamin (vitamin B-12) 500 mcg tablet 500 mcg PO DAILY Qty: 30 0RF (DME) pen needle, diabetic [BD Ultra-Fine Ольга Pen Needle] 32 gauge x 5/32" needle See Dose Instructions .ROUTE .MEDSUPPLY Qty: 400 1RF Dose Instruction: As directed Rx Instructions: use 4 daily with insulin injections atorvastatin 20 mg tablet 20 mg PO DAILY Qty: 90 3RF sertraline 50 mg tablet 100 mg PO DAILY Qty: 180 3RF (DME) OneTouch Verio test strips Strip See Dose Instructions .ROUTE .MEDSUPPLY Qty: 400 3RF Rx Instructions: Test blood sugars 4 times a day cholecalciferol (vitamin D3) 125 mcg (5,000 unit) capsule 5,000 unit PO DAILY Qty: 90 3RF Slow-Mag 71.5 mg tablet,delayed release (DR/EC) 143 mg PO BID Qty: 360 3RF acetaminophen 500 mg tablet 500 mg PO Q6H PRN (Reason: Pain) multivitamin tablet 1 tab PO DAILY (DME) lancets [OneTouch Delica Lancets] 33 gauge misc See Dose Instructions .ROUTE .MEDSUPPLY Qty: 100 Rx Instructions: As directed ascorbic acid (vitamin C) 1,000 mg tablet 1 gm PO DAILY tramadol 50 mg tablet 50 - 100 mg PO Q6H PRN (Reason: pain) Qty: 20 0RF insulin glargine [Basaglar KwikPen U-100 Insulin] 100 unit/mL (3 mL) insulin pen 26 unit SUBCUT HS insulin aspart U-100 [Novolog FlexPen U-100 Insulin] 100 unit/mL (3 mL) insulin pen 4 - 5 unit SQ TIDM Rx Instructions: inject per sliding scale up to 8 units with meals- 3 times daily Discharge Orders: Discharge Order (Routine); Ordered 09/20/23 Ordered By: Tez West/Other Patient Handouts: Managing Type 2 Diabetes Admission Data Admit Date/Time: 09/16/23 07:58 Attending Provider: Tez Powell Admit Provider: Shelly Angela Primary Care Provider: Rola Fofana Other Providers: Jaspal Scanlon; Milo Franco; Galen Petty; Felecia Escamilla; Loren Mejia; Carlitos Bennett; Autumn Mendez; Robb Casotrena; Lisette Corona; Emanuel Ordoñez; Nolberto Boland; Cammie Pathak; Nolberto Anglin; Neel Silva; [place],[facility]; [facility]; [place],[facility] Coding Level of Care Code 25292 INP/OBS DISCH >30 MIN Diagnoses Acute kidney injury superimposed on CKD N17.9; N18.9 Hyperkalemia E87.5 Paranoia F22 Cellulitis of left lower leg L03.116 Bilateral leg weakness R29.898 Pelvis fracture S32.9XXA Diabetic retinopathy associated with controlled type 2 diabetes mellitus E11.319 Essential hypertension I10 Hypertension type: essential hypertension Right knee pain M25.561
[2023-09-20] MEDS ORDERED: predniSONE 10 MG TABLET PO SCH (21:00)
== END 2023-09-20 12:30 | DRG 683 ==
LOC: 3N 21:05 → ED 21:05 → SUATTDRO 09-14 01:43 → 3N 09-14 03:02

== ENCOUNTER 2023-09-23 17:54 | Observation (INO) ==
--- NOTE | 2023-09-23 18:19 | Emergency Department Note ---
Impression & Plan Tachycardia, Hypomagnesemia, Anemia, VALE (acute kidney injury), Leukocytosis, Elevated troponin ED Provider Note NAME: BERENICE GUO AGE: 78 SEX: F : 1945 ARRIVES VIA: Ambulance INFORMANT: [Patient][nursing] ED PROVIDER(S): [Foreign Rubio MD] CHIEF COMPLAINT: Cardiac assessment HISTORY OF PRESENT ILLNESS: The patient is a 78-year-old female who has been at [facility] now for 4 days. She is undergoing some rehab after a recent fall and a bout of cellulitis. She has been doing well. Today, about 3 hours ago, she was visiting with friends and it was found that her pulse was suddenly high. An ECG was done showing SVT or A- fib. She was sent to the hospital for evaluation. The patient states that her fast heart rate only lasted maybe 5 minutes and then resolved. She has never had any dysrhythmia. She did not have chest pain, she was not short of breath. There was no sweating. She did not realize her heart rate was quick. PMHx/PSHx/Social Hx: See Below PHYSICAL EXAM: GENERAL: Patient is in no acute distress. HEENT: No acute trauma, normocephalic atraumatic, mucous membranes moist, no nasal congestion. NECK: No stridor, no adenopathy, no meningismus, trachea is midline. LUNGS: Clear to auscultation bilaterally, no wheeze, no rhonchi, breath sounds equal. HEART: Rhythm seems regular with an occasional extra beat, no murmurs. Normal rate ABDOMEN: Soft, nontender, no peritonitis. EXTREMITIES: No cyanosis, full range of motion of all the joints without pain or difficulty. NEUROLOGIC: Oriented x 3, no acute motor or sensory deficits, no focal weakness. Mild bilateral pedal edema. SKIN: No jaundice, no diaphoresis. DIFFERENTIAL DIAGNOSIS: SVT, A-fib, a flutter, V. tach, electrolyte imbalance, anemia, OK, among others. EMERGENCY DEPARTMENT PROCEDURES: MEDICAL DECISION MAKING: There is a moderate leukocytosis, this could be from infection or just her recent steroid use. The patient was anemic however, this appears baseline looking back at previous testing. Platelet count somewhat elevated at 486. No coagulopathy. There were findings of some acute kidney injury with a creatinine of 2.53. Magnesium was quite low at 1. No worrisome liver enzyme elevation. No evidence for pancreatitis. The patient appeared to be in a euthyroid state. ECG from the outside facility shows what appears to be an atrial fibrillation. Here, ECG showed a sinus rhythm with PVCs. No acute ST elevation. Cardiac enzyme testing x 1 was consistent with potential cardiac injury versus changes from the tachycardia itself. Chest x-ray showed some potential fluid overload versus changes from her body habitus. No pneumonia. The patient received IV magnesium. She was watched closely on the cardiac cath tech. The patient is in need of a hospital stay. She presents with tachycardia which appears to have potentially been atrial fibrillation. She seems now to be in a sinus rhythm with PVCs. She was found to have a very low magnesium, some mild acute kidney injury as well as an elevated troponin. Further care in the hospital, further cardiac workup is warranted. I did speak with the patient and case management, the on-call hospitalist was consulted. Prior/Outside records/notes reviewed: Today's EMS notes describing her presentation and transport to this hospital. ECG per my interpretation: Indication was tachycardia. The ECG shows a sinus rhythm with frequent PVCs. The rate is 87. There is no acute ST elevation, the QTc is 478. Continuous Cardiac Monitoring per my interpretation: An order was placed for continuous cardiac monitoring. The monitor shows a rate of 88 with sinus rhythm with PVCs. Imaging/x-ray results per my interpretation: Chest x-ray shows some potential fluid overload versus changes just from body habitus. There was no pneumothorax or pneumonia Chronic Medical/Social conditions affecting care: Advanced age. Care/Management discussed with: Case management, the on-call hospitalist. Level of care consideration(s): After review of the information above and other included data: --I believe the patient requires escalation of care to admission Critical Care Note: I have personally spent 46 minutes of critical care time in the direct management of this patient. This includes bedside care, interpretation of diagnostic studies, and testing, discussion with consultants, patient, and family members, and other required patient management activities. This 46 minutes is in excess of all separately billable procedures. DISPOSITION: Admission Past Med/Surg History Problem List (Updated 09/24/23 @ 01:47 by Foreign Rubio MD) Elevated troponin (Acute) Leukocytosis (Acute) VALE (acute kidney injury) (Acute) Anemia (Acute) Hypomagnesemia (Acute) Tachycardia (Acute) Leukocytosis Abnormal EKG Elevated troponin Right knee pain Paranoia Acute kidney injury superimposed on CKD Diabetes Hyperkalemia Chronic kidney disease, stage 4 (severe) Acute kidney injury Anemia Bilateral leg weakness Hypomagnesemia (Acute) Cellulitis of left lower leg (Acute) Foot sprain Bilateral primary osteoarthritis of knee Knee contusion Bilateral knee effusions Pelvis fracture (~09/12/23) bilateral hip stress fractures from a fall-saw orthopedics Left foot pain Type 2 diabetes mellitus with hypoglycemia Vitamin D deficiency B12 deficiency Hypertension (Chronic) Hyperlipidemia (Chronic) Diabetic retinopathy associated with controlled type 2 diabetes mellitus (Chronic) Diabetic nephropathy associated with type 2 diabetes mellitus (Chronic) Type 2 diabetes mellitus (Chronic) Pyriformis syndrome (Chronic) Pseudogout of knee (Acute) Memory loss, short term (Acute) Asthma (Acute) Chronic SI joint pain Driving safety issue Chronic cough Cognitive complaints Medical History CKD (chronic kidney disease), stage III Surgical History History of hysterectomy Family History Father Diabetes Macular degeneration Lung disease Mother Heart disease Hyperlipidemia Dementia Social History Smoking Status: Never smoker Second Hand Exposure: No; Do You Dip or Chew Tobacco: No; Hx Alcohol Use: No Hx Substance Use: No Preferred Language: Luxembourgish Communication Ability: Effective Boxer Operator Required: No Beliefs That Will Affect Care: None marital status: Current Living Situation: Rehab Current Living Situation Comment: [facility], plan for d/c home this current occupational status: retired Feels Safe at Home: Yes Safety Concerns: Feels Safe At This Time Assistive Devices: Glasses and Walker Allergies Allergies Allergy/AdvReac Type Severity Reaction Status Date / Time tree and shrub pollen Allergy Intermediate ITCHY Verified 09/23/23 21:38 EYES, SNEEZING, CONGESTION CODY Inhibitors AdvReac Intermediate Cough Verified 09/23/23 21:38 clarithromycin AdvReac Intermediate Vomiting Verified 09/23/23 21:38 Macrolide Antibiotics AdvReac Intermediate Vomiting Verified 09/23/23 21:38 Home Meds Home Medications Medication Instructions Recorded Confirmed multivitamin 1 tab PO DAILY 01/13/19 09/23/23 ascorbic acid (vitamin C) 1,000 mg 1 gm PO DAILY 01/16/19 09/23/23 tablet insulin aspart U-100 100 unit/mL 4 unit subcut TIDM 09/13/23 09/23/23 (3 mL) subcutaneous pen (Novolog FlexPen U-100 Insulin aspart) insulin glargine 100 unit/mL (3 26 unit subcut HS 09/13/23 09/23/23 mL) subcutaneous pen (Basaglar KwikPen U-100 Insulin) Slo Magnesium/Calcium 64/106 2 tabs PO BID 09/23/23 09/23/23 acetaminophen 325 mg tablet 650 mg PO Q4 PRN Fever Or Pain 09/23/23 09/23/23 (Tylenol) amlodipine 10 mg tablet 10 mg PO DAILY 09/23/23 09/23/23 docusate sodium 100 mg tablet 100 mg PO DAILY PRN Constipation 09/23/23 09/23/23 insulin aspart U-100 100 unit/mL 1 sliding scale dose subcut 09/23/23 09/23/23 (3 mL) subcutaneous pen (Novolog USEASDIRECTD FlexPen U-100 Insulin aspart) povidone-iodine 10 % topical swab 1 applic topical AMHS 09/23/23 09/23/23 (Betadine Swabsticks) prednisone 10 mg tablet 10 mg PO DAILY 09/23/23 09/23/23 sertraline 100 mg tablet 100 mg PO DAILY 09/23/23 09/23/23 Previous Rx's Medication Instructions Recorded cholecalciferol (vitamin D3) 125 5,000 unit PO DAILY #90 caps 02/25/20 mcg (5,000 unit) capsule cyanocobalamin (vitamin B-12) 500 500 mcg PO DAILY #30 tabs 06/27/21 mcg tablet atorvastatin 20 mg tablet 20 mg PO DAILY #90 tabs 04/11/23 hydralazine 25 mg tablet 25 mg PO TID #30 tabs 09/20/23 polyethylene glycol 3350 17 gram 17 g PO DAILY PRN constipation #0 09/20/23 oral powder packet (Miralax) ea Results & Data (ED) Vital Signs Vital Signs - 24 hr 09/23/23 17:48 09/23/23 17:58 09/23/23 17:58 Temperature 36.9 C Temperature Source Oral Pulse Rate 90 92 H 88 Pulse Rate from SpO2 Sensor 89 Pulse Rhythm Regular Pulse Strength Normal Respiratory Rate 18 16 Respiratory Effort / Characteristics Non-Labored Respiratory Depth Normal Respiratory Pattern Regular Blood Pressure 159/75 H 159/75 H Blood Pressure Mean 103 103 Blood Pressure Position Sitting Pulse Oximetry 95 96 Oxygen Delivery Method Room Air Sepsis Recent Fever Within 48 Hours No Sepsis New/Unexplained Change in Mental Status N/A Sepsis Action Taken by Nursing No Action Required 09/23/23 18:08 09/23/23 18:30 09/23/23 19:00 Temperature Temperature Source Pulse Rate 88 83 85 Pulse Rate from SpO2 Sensor 44 L 82 70 Pulse Rhythm Pulse Strength Respiratory Rate 18 14 20 Respiratory Effort / Characteristics Respiratory Depth Respiratory Pattern Blood Pressure 144/78 H 152/72 H 154/84 H Blood Pressure Mean 100 98 107 Blood Pressure Position Pulse Oximetry 96 96 94 Oxygen Delivery Method Sepsis Recent Fever Within 48 Hours Sepsis New/Unexplained Change in Mental Status Sepsis Action Taken by Nursing 09/23/23 19:30 09/23/23 20:12 Temperature Temperature Source Pulse Rate 83 Pulse Rate from SpO2 Sensor 84 91 H Pulse Rhythm Pulse Strength Respiratory Rate 16 16 Respiratory Effort / Characteristics Respiratory Depth Respiratory Pattern Blood Pressure 138/72 150/66 H Blood Pressure Mean 94 94 Blood Pressure Position Pulse Oximetry 96 95 Oxygen Delivery Method Sepsis Recent Fever Within 48 Hours Sepsis New/Unexplained Change in Mental Status Sepsis Action Taken by [facility]way Medications Current Medication List: was personally reviewed by me Laboratory Data Attestation: I reviewed the patient's lab results. 09/23/23 18:11 09/23/23 18:11 Lab Results 09/23/23 09/23/23 Range/Units 18:11 20:19 WBC 18.92 H (4.8-10.8) K/ul RBC 3.72 L (4.20-5.40) M/uL Hgb 10.8 L (12.0-16.0) g/dl Hct 32.2 L (37.0-47.0) % MCV 86.6 (80.0-100.0) fL MCH 29.0 (25.0-34.0) pg MCHC 33.5 (32.0-36.0) g/dL RDW Std Deviation 46.5 H (36.4-46.3) fL RDW Coeff of Haider 14.8 H (11.5-14.5) % Plt Count 486 H (130-400) K/uL MPV 10.3 (9.4-12.4) fL Immature Gran % (Auto) 1.8 % Neut % (Auto) 84.1 % Lymph % (Auto) 9.1 % Hill % (Auto) 4.6 % Eos % (Auto) 0.1 % Baso % (Auto) 0.3 % Neut # (Auto) 15.92 H (1.40-6.50) K/uL Lymph # (Auto) 1.73 (1.20-3.40) K/uL Hill # (Auto) 0.87 H (0.11-0.59) K/uL Eos # (Auto) 0.01 (0.00-0.50) K/uL Baso # (Auto) 0.05 (0.00-0.20) K/uL Immature Gran # (Auto) 0.34 H (0.01-0.20) K/uL PT 11.5 (9.0-12.0) Seconds INR 1.1 (0.9-1.1) APTT 25 (21-31) Seconds PTT Ratio 0.9 Sodium 135 L (136-145) mmol/L Potassium 3.6 (3.5-5.1) mmol/L Chloride 99 (98-107) mmol/L Carbon Dioxide 22 (21-32) mmol/L Anion Gap 14 H (3-11) BUN 56 H (6-23) mg/dl Creatinine 2.53 H (0.6-1.2) mg/dl Est Cr Clr Drug Dosing 20.0 ml/min Est GFR ( Amer) 20.3 ml/min Est GFR (Non-Af Amer) 17.6 ml/min BUN/Creatinine Ratio 22.1 H (10-20) Glucose 251 H (70-99(Fasting)) mg/dl Calcium 8.6 (8.6-10.3) mg/dl Magnesium 1.0 L (1.7-2.4) mg/dl Total Bilirubin 0.4 (0.2-1.0) mg/dl AST 24 (13-39) U/L ALT 31 (7-52) U/L Alkaline Phosphatase 71 (34-104) U/L Troponin I High Sens 278.9 H* 314.8 H* (0-14) pg/ml Total Protein 6.9 (6.0-8.3) gm/dl Albumin 3.4 (3.4-5.0) gm/dl Globulin 3.5 (2.5-4.0) gm/dl Albumin/Globulin Ratio 1.0 (0.9-2) Lipase 34 (11-82) U/L TSH 1.424 (0.300-4.500) uIu/ml Administered Medications Heparin Sodium (Porcine) (Heparin Sod 5,000 Unit/0.5 Ml Vial) 5,000 units SQ Q12 [facility] Stop: 10/23/23 21:36 Last Admin: 09/23/23 22:01 Dose: 5,000 units Documented By: DIPAK Lactated Ringer's (Lr) 1,000 mls @ 80 mls/hr IV .[id number] [facility] Stop: 09/24/23 09:14 Last Admin: 09/23/23 21:53 Dose: 80 mls/hr Documented By: DIPAK Insulin Aspart (Insulin Aspart Per Unit Charge) 0 units SC ACHS [facility] Stop: 10/23/23 21:36 Last Admin: 09/23/23 22:00 Dose: 7 units Documented By: DIPAK Co-signed By: ARACELIS Insulin Glargine (Lantus Per Unit Charge) 5 units SQ BID [facility] Stop: 10/23/23 21:36 Last Admin: 09/23/23 22:00 Dose: 5 units Documented By: AMWilbert Co-signed By: ARACELIS Discontinued Medications Magnesium Sulfate/Dextrose (Magnesium Sulfate / D5w) 1 gm in 100 mls @ 100 mls/hr IV Q1H [facility] Stop: 09/23/23 21:10 Last Infusion: 09/23/23 21:30 Dose: Infused Documented By: Admin: 09/23/23 20:27 Dose: 100 mls/hr Documented By: Infusion: 09/23/23 20:27 Dose: Infused Documented By: [facility] Admin: 09/23/23 19:20 Dose: 100 mls/hr Documented By: ADRIAN Magnesium Sulfate/Dextrose (Magnesium Sulfate / D5w) 1 gm in 100 mls @ 50 mls/hr IV Q2H [facility] Stop: 09/24/23 01:36 Last Admin: 09/24/23 00:37 Dose: 50 mls/hr Documented By: Infusion: 09/23/23 23:57 Dose: Infused Documented By: Admin: 09/23/23 21:57 Dose: 50 mls/hr Documented By: DIPAK Imaging Data Radiologist's Impression: Chest X-Ray 09/23/23 18:06 XR chest 1V portable HISTORY: Chest pain, nonspecific COMPARISON: Chest 09/16/2023. FINDINGS: No pneumothorax. No pleural effusions. There are low lung volumes. The heart remains mildly enlarged. No acute fractures. Perihilar interstitial/vascular thickening suggestive of mild congestive change. Left basilar linear densities favor subsegmental atelectasis or scarring. This is similar to the prior study. Otherwise, no new focal lung consolidations to suggest pneumonia. IMPRESSION: Cardiomegaly with mild congestive change. ACT 112: Negative or not required by law. Electronically signed by: Neeraj Long M.D. 09/23/2023 7:01 PM Discharge Plan Visit Data Chief Complaint: Cardiac Assessment Stated Complaint: CARDIAC ASSESSMENT ED Provider: Foreign Rubio Discharge Problem: Tachycardia, Hypomagnesemia, Anemia, VALE (acute kidney injury), Leukocytosis, Elevated troponin Patient Disposition: Admitted As Inpatient Condition: Fair Discharge Instructions Interventions: ED Discharge Assessment Last Done: 09/23/23 21:40 Discharge Problem: Anemia Qualifiers: Anemia type: unspecified type Qualified Code(s): D64.9 - Anemia, unspecified Leukocytosis Qualifiers: Leukocytosis type: unspecified Qualified Code(s): D72.829 - Elevated white blood cell count, unspecified
[2023-09-23 18:46] LABS: Basophils # (auto) 0.05 K/uL (0.00-0.20); Basophils % (auto) 0.3 %; Eosinophils # (auto) 0.01 K/uL (0.00-0.50); Eosinophils % (auto) 0.1 %; Hematocrit (blood only) 32.2 % (37.0-47.0); Hemoglobin 10.8 g/dl (12.0-16.0); Immature Granulocytes # (auto) 0.34 K/uL (0.01-0.20); Immature Granulocytes % (auto) 1.8 %; Lymphocytes # (auto) 1.73 K/uL (1.20-3.40); Lymphocytes % (auto) 9.1 %; Mean Corpuscular Hgb Conc 33.5 g/dL (32.0-36.0); Mean Corpuscular Volume 86.6 fL (80.0-100.0); Mean Platelet Volume 10.3 fL (9.4-12.4); Monocytes # (auto) 0.87 K/uL (0.11-0.59); Monocytes % (auto) 4.6 %; Neutrophils # (auto) 15.92 K/uL (1.40-6.50); Neutrophils % (auto) 84.1 %; Platelet Count 486 K/uL (130-400); RDW Coefficient of Variation 14.8 % (11.5-14.5); RDW Standard Deviation 46.5 fL (36.4-46.3); Red Blood Count 3.72 M/uL (4.20-5.40); White Blood Count 18.92 K/ul (4.8-10.8)
--- NOTE | 2023-09-23 19:02 | XRay Report ---
XR chest 1V portable HISTORY: Chest pain, nonspecific COMPARISON: Chest 09/16/2023. FINDINGS: No pneumothorax. No pleural effusions. There are low lung volumes. The heart remains mildly enlarged. No acute fractures. Perihilar interstitial/vascular thickening suggestive of mild congesti ve change. Left basilar linear densities favor subsegmental atelectasis or scarring. This is similar to the prior study. Otherwise, no new focal lung consolidations to suggest pneumonia. IMPRESSION: Cardiomegaly with mild congestive change. ACT 112: Negative or not required by law. Electronically signed by: Neeraj Long M.D. 09/23/2023 7:01 PM
[2023-09-23 19:06] LABS: Albumin Level 3.4 gm/dl (3.4-5.0); BUN Creatinine Ratio 22.1 (10-20); Bilirubin,Total 0.4 mg/dl (0.2-1.0); Calcium 8.6 mg/dl (8.6-10.3); Est GFR (African American) 20.3 ml/min; Est GFR (Non-African American) 17.6 ml/min; Globulin 3.5 gm/dl (2.5-4.0); Potassium 3.6 mmol/L (3.5-5.1); Total Protein 6.9 gm/dl (6.0-8.3)
[2023-09-23 19:10] LABS: INR 1.1 (0.9-1.1); Partial Thromboplastin Ratio 0.9; Partial Thromboplastin Time 25 Seconds (21-31); Prothrombin Time 11.5 Seconds (9.0-12.0)
[2023-09-23 19:14] LABS: Troponin I High Sensitivity 278.9 pg/ml (0-14)
[2023-09-23] MEDS: MAGNESIUM SULFATE / D5W 1 GM/100 ML BAG IV SCH ×2 (19:20→21:57)
[2023-09-23 19:21] LABS: Thyroid Stimulating Hormone 1.424 uIu/ml (0.300-4.500)
--- NOTE | 2023-09-23 19:39 | History & Physical Report ---
Date of Service September 23, 2023 Assessment & Plan (1) Abnormal EKG: Plan: Patient had EKG done at [facility] on 09/22 that revealed SVT at 154 bpm Patient reports she has been asymptomatic (no chest pain, chest palpitations, SOB, dizziness, or lightheadedness) EKG on ED arrival revealed sinus rhythm with frequent PVCs at 87 bpm; QTc 478 Elevated troponin at 278 on arrival, repeat pending Echocardiogram ordered, pending Continuous telemetry monitoring A.m. CBC, BMP, mag (2) Hypomagnesemia: Plan: Mag 1.0 on arrival; may be the cause of #1 Magnesium sulfate 1 g x 4 Recheck a.m. mag (3) Pelvis fracture: Plan: Recent fall on 09/11; conservative measures Fall precautions PT/OT consulted (4) Leukocytosis: Plan: Leukocytosis at 18.92 on arrival In the setting of recent steroid use to treat her cellulitis during [place] admission 09/13 - 09/19 Cellulitis is largely resolved at time of admission Will defer antibiotics at this time, as patient denies any new infectious symptoms (5) Type 2 diabetes mellitus: Plan: Last A1c at 8.0% on 09/14/2023 Glucose 251 on admission Hold prednisone Patient is normally on insulin glargine 26 units HS Will dose reduce Lantus to 5u BID in the setting of VALE SSI; with target BSG range 110-140mg/dL, CF 30, carb ratio 10 T2DM diet BSG ACHS Adjust regimen as needed (6) Acute kidney injury superimposed on CKD: Plan: BUN 56, creatinine 2.53 (most recent baseline 1.86), EGFR 17.6 Avoid nephrotoxic agents for possible Gentle fluid resuscitation with LR at 80mL/hr x 1 (7) Hyperlipidemia: (8) Hypertension: (9) Chronic kidney disease, stage 4 (severe): (10) Memory loss, short term: (11) Elevated troponin: Plan Disposition: Obs - Admit to PCU telemetry DNR/DNI T2DM Diet VTE PPx: Heparin 5000u SQ q12h History of Present Illness Chief Complaint: Cardiac assessment Primary Care Provider: Rola Fofana MD Saige is a pleasant 78-year-old female with PMH of T2DM, HLD, HTN, asthma, piri formis syndrome, CKD stage IV, and recent pelvic fracture on 09/12/2023. She presented from [facility] for SVT on EKG on 09/22. Patient reports she was asymptomatic at the time, but nursing staff reported she had a fast heart rate; EKG done at the time reported SVT at 154 bpm. No chest palpitations, dizziness, lightheadedness, SOB, or chest pain. No history of atrial fibrillation or SVT to her knowledge. Patient took all of her regular morning medications today. Recent [place] admission from 09/13-09/19 for cellulitis and pelvic fracture secondary to fall. Patient denies any hip pain at time of admission; her only pain is mild bilateral knee pain. Patient was discharged on prednisone for her cellulitis. She denies smoking, tobacco use, recent alcohol use. She has not had no falls since her fall on 09/11. Hx of hypomagnesemia in the past secondary to high blood sugars for diabetes. Patient is hypertensive at 159/75 at time of admission; vitals otherwise stable. ED course: Magnesium sulfate 1 g x 2 ROS: Patient endorses diarrhea (on Saturday night; resolved), and bilateral knee pain (ongoing). Patient denies fever, chills, night-sweats, dizziness, lightheadedness, HAQUE, tremor, changes in vision, CP, chest pressure, chest palpitations, SOB, cough, abdominal pain, N/V, blood in the urine/stool, dysuria, burning with urination, or numbness/tingling in the arms or legs. Allergies Allergy/AdvReac Type Severity Reaction Status Date / Time tree and shrub pollen Allergy Intermediate ITCHY Verified 09/23/23 21:38 EYES, SNEEZING, CONGESTION CODY Inhibitors AdvReac Intermediate Cough Verified 09/23/23 21:38 clarithromycin AdvReac Intermediate Vomiting Verified 09/23/23 21:38 Macrolide Antibiotics AdvReac Intermediate Vomiting Verified 09/23/23 21:38 Home Medications Medication Instructions Recorded Confirmed Type multivitamin 1 tab PO DAILY 01/13/19 09/23/23 History ascorbic acid (vitamin C) 1,000 mg 1 gm PO DAILY 01/16/19 09/23/23 History tablet cholecalciferol (vitamin D3) 125 5,000 unit PO DAILY #90 caps 02/25/20 09/23/23 Rx mcg (5,000 unit) capsule cyanocobalamin (vitamin B-12) 500 500 mcg PO DAILY #30 tabs 02/22/22 05/20/24 Rx mcg tablet atorvastatin 20 mg tablet 20 mg PO DAILY #90 tabs 04/11/23 09/23/23 Rx insulin aspart U-100 100 unit/mL 4 unit subcut TIDM 09/13/23 09/23/23 History (3 mL) subcutaneous pen (Novolog FlexPen U-100 Insulin aspart) insulin glargine 100 unit/mL (3 26 unit subcut HS 09/13/23 09/23/23 History mL) subcutaneous pen (Basaglar KwikPen U-100 Insulin) hydralazine 25 mg tablet 25 mg PO TID #30 tabs 09/20/23 09/23/23 Rx polyethylene glycol 3350 17 gram 17 g PO DAILY PRN constipation #0 09/20/23 09/23/23 Rx oral powder packet (Miralax) ea Slo Magnesium/Calcium 64/106 2 tabs PO BID 09/23/23 09/23/23 History acetaminophen 325 mg tablet 650 mg PO Q4 PRN Fever Or Pain 09/23/23 09/23/23 History (Tylenol) amlodipine 10 mg tablet 10 mg PO DAILY 09/23/23 09/23/23 History docusate sodium 100 mg tablet 100 mg PO DAILY PRN Constipation 09/23/23 09/23/23 History insulin aspart U-100 100 unit/mL 1 sliding scale dose subcut 09/23/23 09/23/23 History (3 mL) subcutaneous pen (Novolog USEASDIRECTD FlexPen U-100 Insulin aspart) povidone-iodine 10 % topical swab 1 applic topical AMHS 09/23/23 09/23/23 History (Betadine Swabsticks) prednisone 10 mg tablet 10 mg PO DAILY 09/23/23 09/23/23 History sertraline 100 mg tablet 100 mg PO DAILY 09/23/23 09/23/23 History Past Med/Surg History Problem List (Updated 09/23/23 @ 20:38 by Neeraj Diop PA-C) Leukocytosis Abnormal EKG Elevated troponin Right knee pain Paranoia Acute kidney injury superimposed on CKD Diabetes Hyperkalemia Chronic kidney disease, stage 4 (severe) Acute kidney injury Anemia Bilateral leg weakness Hypomagnesemia (Acute) Cellulitis of left lower leg (Acute) Foot sprain Bilateral primary osteoarthritis of knee Knee contusion Bilateral knee effusions Pelvis fracture (~09/12/23) bilateral hip stress fractures from a fall-saw orthopedics Left foot pain Type 2 diabetes mellitus with hypoglycemia Vitamin D deficiency B12 deficiency Hypertension (Chronic) Hyperlipidemia (Chronic) Diabetic retinopathy associated with controlled type 2 diabetes mellitus (Chronic) Diabetic nephropathy associated with type 2 diabetes mellitus (Chronic) Type 2 diabetes mellitus (Chronic) Pyriformis syndrome (Chronic) Pseudogout of knee (Acute) Memory loss, short term (Acute) Asthma (Acute) Chronic SI joint pain Driving safety issue Chronic cough Cognitive complaints Medical History CKD (chronic kidney disease), stage III Surgical History History of hysterectomy Family History Father Diabetes Macular degeneration Lung disease Mother Heart disease Hyperlipidemia Dementia Social History Smoking Status: Never smoker Second Hand Exposure: No; Do You Dip or Chew Tobacco: No; Hx Alcohol Use: No Hx Substance Use: No Preferred Language: Omani Communication Ability: Effective Junior Financial Analyst Required: No Beliefs That Will Affect Care: None marital status: Current Living Situation: Rehab Current Living Situation Comment: [facility], plan for d/c home this current occupational status: retired Feels Safe at Home: Yes Safety Concerns: Feels Safe At This Time Assistive Devices: Glasses and Walker Review of Systems Review of Systems: See HPI above Physical Exam Physical Exam: General: no acute distress; pleasant affect; non-toxic appearing; well- nourished; cooperative; SpO2 95% on RA HEENT: normocephalic, atraumatic; no scleral icterus; PERRLA; moist mucus membrane; vision and hearing grossly intact Neck: supple; no lymphadenopathy; trachea midline Skin: warm, dry without signs of tenting; no cyanosis; no rashes, bruising, lesions, or erythema noted CV: chest wall NTP; RRR; S1/S2 normal; no murmurs/rubs/gallops; pulses intact and symmetric at radial, DP, and PT Lungs: no acute respiratory distress; symmetrical chest wall expansion; clear breath sounds across all lung isabel w/o adventitious sounds; no wheezing ABD: Soft, NTP; BS present; no rebound/guarding; no distention MSK: no tics or fasciculations; +2 pitting edema noted in the LEs b/l, nonerythematous; Neuro: A&Ox3; normal mood and affect; fluent speech; no focal deficits; sensation intact in the LEs b/l Results & Data Results & Data Vital Signs (Past 12 Hours) Vital Signs Temp Pulse Resp BP Pulse Ox O2 Del Method 09/23/23 17:58 92 H 09/23/23 17:48 36.9 C 90 18 159/75 H 95 Room Air Laboratory Results Abnormal lab results 09/23/23 Range/Units 18:11 WBC 18.92 H (4.8-10.8) K/ul RBC 3.72 L (4.20-5.40) M/uL Hgb 10.8 L (12.0-16.0) g/dl Hct 32.2 L (37.0-47.0) % RDW Std Deviation 46.5 H (36.4-46.3) fL RDW Coeff of Haider 14.8 H (11.5-14.5) % Plt Count 486 H (130-400) K/uL Neut # (Auto) 15.92 H (1.40-6.50) K/uL Vilas # (Auto) 0.87 H (0.11-0.59) K/uL Immature Gran # (Auto) 0.34 H (0.01-0.20) K/uL Sodium 135 L (136-145) mmol/L Anion Gap 14 H (3-11) BUN 56 H (6-23) mg/dl Creatinine 2.53 H (0.6-1.2) mg/dl BUN/Creatinine Ratio 22.1 H (10-20) Glucose 251 H (70-99(Fasting)) mg/dl Magnesium 1.0 L (1.7-2.4) mg/dl Troponin I High Sens 278.9 H* (0-14) pg/ml Diagnostic Findings Chest X-Ray 09/23/23 18:06 XR chest 1V portable HISTORY: Chest pain, nonspecific COMPARISON: Chest 09/16/2023. FINDINGS: No pneumothorax. No pleural effusions. There are low lung volumes. The heart remains mildly enlarged. No acute fractures. Perihilar interstitial/vascular thickening suggestive of mild congestive change. Left basilar linear densities favor subsegmental atelectasis or scarring. This is similar to the prior study. Otherwise, no new focal lung consolidations to suggest pneumonia. IMPRESSION: Cardiomegaly with mild congestive change. ACT 112: Negative or not required by law. Electronically signed by: Neeraj Long M.D. 09/23/2023 7:01 PM ECG Additional Comments: EKG revealed sinus rhythm with frequent PVCs at 87 bpm; QTc 478 Code Status & VTE Plan Code Status DNR/DNI VTE Prophylaxis Plan VTE Prophylaxis will be ordered: Yes Supervising Physician Co-Signing Physician Notes Patient seen and examined, chart reviewed, case discussed with CLAUDIA Diop and I agree with the assessment and plan as above. In brief, patient is a 78yo female with h/o DM, HTN, HLP and CKD, recent pelvic fracture presenting from [facility] with concern for episode of SVT. Patient found to have a fast heart rate at 150bpm - relatively asymptomatic. Recently on Prednisone. Has remote history of hypomagnesemia, was on PO supplementation at one point but has since been discontinued. She reports that her blood sugars have been very hard to control since being on the Prednisone. On exam she is resting comfortably, NAD Skin - warm, dry, no rashes HEENT - MMM, Neck supple Heart - +S1/S2, regular, no m/r/g Lungs - CTA, no rales/rhonchi/wheezes Abd - +BS, soft, NT/ND Ext - warm, well perfused, 2+ edema Labs and images reviewed Mg=1 Trop = 278.9 --> 314.8 Zzt=542 BUN=56 Cr=2.53 WBC=18.92 CXR with Cardiomegaly with mild congestive failure Assessment/Plan Report of SVT from [facility]. EKG here with frequent PVCs. Patient asymptomatic. Hypomagnesemia, increasing troponin without complaint of CP or dyspnea, no acute ischemic EKG changes -Magnesium repletion -Trend troponin -Check 2D echo -Remainder as above PG Care Time/CCT Total # of Minutes Spent Total Time Spent with Patient: Total time spent is greater than 50% in coordination of care (as documented) at patient's floor/unit and/or counseling patient: C[place] [id number] INT INP/OBS CARE 3/75MIN Patient Type Established Medical Decision Making High Complexity Diagnoses Abnormal EKG R94.31 Hypomagnesemia E83.42 Pelvis fracture S32.9XXA Leukocytosis D72.829 Type 2 diabetes mellitus with stage 3 chronic kidney disease, with long-term current use of insulin E11.22; N18.3; Z79.4 Chronic kidney disease stage: stage 3 (moderate) Diabetes mellitus complication detail: with chronic kidney disease Diabetes mellitus complication status: with kidney complications Diabetes mellitus superintendent container terminal insulin use: with longterm use Acute kidney injury superimposed on CKD N17.9; N18.9 Mixed hyperlipidemia E78.2 Hyperlipidemia type: mixed hyperlipidemia Essential hypertension I10 Hypertension type: essential hypertension Chronic kidney disease, stage 4 (severe) N18.4 Memory loss, short term R41.3 Elevated troponin R79.89 (5) Type 2 diabetes mellitus Chronic kidney disease stage: stage 3 (moderate) Diabetes mellitus complication detail: with chronic kidney disease Diabetes mellitus complication status: with kidney complications Diabetes mellitus superintendent container terminal insulin use: with longterm use Qualified Code(s): E11.22 - Type 2 diabetes mellitus with diabetic chronic kidney disease; N18.3 - Chronic kidney disease, stage 3 (moderate); Z79.4 - MCC (current) use of insulin (7) Hyperlipidemia Hyperlipidemia type: mixed hyperlipidemia Qualified Code(s): E78.2 - Mixed hyperlipidemia (8) Hypertension Hypertension type: essential hypertension Qualified Code(s): I10 - Essential (primary) hypertension
[2023-09-23] MEDS ORDERED: GLUCOSE 10 TAB/TUBE PO PRN (21:37)
[2023-09-23] MEDS ORDERED: GLUCOSE 40% GEL 15 GM TUBE PO PRN (21:37)
[2023-09-23] MEDS ORDERED: CARBOHYDRATES FOR HYPOGLYCEMIA PO PRN (21:37)
[2023-09-23] MEDS ORDERED: DEXTROSE 50% 50 ML SYRINGE IV PRN (21:37)
[2023-09-23] MEDS ORDERED: GLUCAGON FOR INJ 1 MG VIAL SQ PRN (21:37)
[2023-09-23] MEDS: LACTATED RINGER'S 1,000 ML IV SCH (21:53)
[2023-09-23] MEDS: INSULIN ASPART PER UNIT CHARGE SC SCH (22:00)
[2023-09-23] MEDS: LANTUS PER UNIT CHARGE SQ SCH (22:00)
[2023-09-23] MEDS: HEPARIN SOD 5,000 UNIT/0.5 ML VIAL SQ SCH (22:01)
[2023-09-23] MEDS ORDERED: POLYETHYLENE (MIRALAX) 17 GM PACK PO PRN (22:04)
[2023-09-23] MEDS ORDERED: DOCUSATE SODIUM 100 MG CAP PO PRN (22:54)
[2023-09-24 02:25] LABS: Basophils # (auto) 0.03 K/uL (0.00-0.20); Basophils % (auto) 0.2 %; Eosinophils # (auto) 0.09 K/uL (0.00-0.50); Eosinophils % (auto) 0.5 %; Hematocrit (blood only) 28.4 % (37.0-47.0); Hemoglobin 9.6 g/dl (12.0-16.0); Immature Granulocytes # (auto) 0.22 K/uL (0.01-0.20); Immature Granulocytes % (auto) 1.3 %; Lymphocytes # (auto) 3.42 K/uL (1.20-3.40); Lymphocytes % (auto) 19.5 %; Mean Corpuscular Hemoglobin 29.4 pg (25.0-34.0); Mean Corpuscular Hgb Conc 33.8 g/dL (32.0-36.0); Mean Corpuscular Volume 86.9 fL (80.0-100.0); Mean Platelet Volume 10.2 fL (9.4-12.4); Monocytes # (auto) 1.43 K/uL (0.11-0.59); Monocytes % (auto) 8.2 %; Neutrophils # (auto) 12.32 K/uL (1.40-6.50); Neutrophils % (auto) 70.3 %; Platelet Count 381 K/uL (130-400); RDW Standard Deviation 47.4 fL (36.4-46.3); Red Blood Count 3.27 M/uL (4.20-5.40); White Blood Count 17.51 K/ul (4.8-10.8)
[2023-09-24 02:31] LABS: BUN Creatinine Ratio 24.2 (10-20); Calcium 8.4 mg/dl (8.6-10.3); Creatinine Clr Calc Pharmacy 21.3 ml/min; Est GFR (African American) 22.1 ml/min; Est GFR (Non-African American) 19.1 ml/min; Magnesium 2.3 mg/dl (1.7-2.4); Potassium 3.4 mmol/L (3.5-5.1)
[2023-09-24] MEDS: POTASSIUM CHLORIDE CRTAB 20 MEQ TABCR PO STA (05:32)
--- NOTE | 2023-09-24 08:03 | Hospitalist Progress Note ---
Date of Service September 24, 2023 Assessment & Plan (1) Abnormal EKG: Plan: Patient had EKG done at [facility] on 09/22 that revealed SVT at 154 bpm Patient reports she has been asymptomatic (no chest pain, chest palpitations, SOB, dizziness, or lightheadedness) EKG on ED arrival revealed sinus rhythm with frequent PVCs at 87 bpm; QTc 478 Elevated troponin at 278 on arrival, repeat pending Echocardiogram ordered, pending Continuous telemetry monitoring A.m. CBC, BMP, mag (2) Hypomagnesemia: Plan: Mag 1.0 on arrival; may be the cause of #1 Magnesium sulfate 1 g x 4 Recheck a.m. mag (3) Pelvis fracture: Plan: Recent fall on 09/11; conservative measures Fall precautions PT/OT consulted (4) Leukocytosis: Plan: Leukocytosis at 18.92 on arrival In the setting of recent steroid use to treat her cellulitis during [place] 09/13 - 09/19 Cellulitis is largely resolved at time of admission Will defer antibiotics at this time, as patient denies any new infectious symptoms (5) Type 2 diabetes mellitus: Plan: Last A1c at 8.0% on 09/14/2023 Glucose 251 on admission Hold prednisone Patient is normally on insulin glargine 26 units HS Will dose reduce Lantus to 5u BID in the setting of VALE SSI; with target BSG range 110-140mg/dL, CF 30, carb ratio 10 T2DM diet BSG ACHS Adjust regimen as needed (6) Acute kidney injury superimposed on CKD: Plan: BUN 56, creatinine 2.53 (most recent baseline 1.86), EGFR 17.6 Avoid nephrotoxic agents for possible Gentle fluid resuscitation with LR at 80mL/hr x 1 (7) Hyperlipidemia: (8) Hypertension: (9) Chronic kidney disease, stage 4 (severe): (10) Memory loss, short term: (11) Elevated troponin: Plan Disposition: Obs - Admit to PCU telemetry DNR/DNI T2DM Diet VTE PPx: Heparin 5000u SQ q12h Admission and Anticipated Discharge Date Admission Date: September 23, 2023 Results & Data Results & Data Vital Signs (Past 12 Hours) Vital Signs Temp Pulse Pulse Resp BP BP Pulse Ox 09/24/23 07:12 36.7 C 74 18 149/65 H 97 09/24/23 02:29 36.7 C 73 14 126/73 95 09/23/23 23:48 78 09/23/23 21:45 36.6 C 80 18 155/70 H 96 09/23/23 20:30 18 125/56 L 94 09/23/23 20:12 16 150/66 H 95 O2 Del Method 09/24/23 07:12 Room Air 09/24/23 02:29 Room Air 09/23/23 23:48 09/23/23 21:45 Room Air 09/23/23 20:30 09/23/23 20:12 (5) Type 2 diabetes mellitus Chronic kidney disease stage: stage 3 (moderate) Diabetes mellitus complication detail: with chronic kidney disease Diabetes mellitus complication status: with kidney complications Diabetes mellitus correction insulin use: with termite control service representative use Qualified Code(s): E11.22 - Type 2 diabetes mellitus with diabetic chronic kidney disease; N18.3 - Chronic kidney disease, stage 3 (moderate); Z79.4 - termite control service representative (current) use of insulin (7) Hyperlipidemia Hyperlipidemia type: mixed hyperlipidemia Qualified Code(s): E78.2 - Mixed hyperlipidemia (8) Hypertension Hypertension type: essential hypertension Qualified Code(s): I10 - Essential (primary) hypertension
[2023-09-24] MEDS: ATORVASTATIN 20 MG TAB PO SCH (08:49)
[2023-09-24] MEDS: amLODIPine BESYLATE 5 MG TAB PO SCH (08:49)
[2023-09-24] MEDS: SERTRALINE HCL 100 MG TABLET PO SCH (08:49)
[2023-09-24] MEDS: hydrALAZINE HCL 25 MG TAB PO SCH (08:49)
[2023-09-24] MEDS: ACETAMINOPHEN 325 MG TAB PO PRN (09:19)
--- OUTSIDE RECORDS SUMMARY | 2023-09-24 11:23 | External Medical Summary | Summary of Care ---
Author Name Unknown Organization [facility] Address [address] [place] [address] Phone [phone] Care Team Providers Care Enrollment Services Dean Name Role Phone Rola Fofana MD Primary Care Provide r Reason for Visit * Reason Onset Date Comments Skilled Visit 09/23/2023 Encounter Details Date Type Department Care Team (Late st Contact Info) Description 09/23/2023 2:30 PM EDT Retirement Visit [address] [place] [address] Rhonda Sandoval PA-C [address] [place] [address] Cellulitis of left lower extremity*; VALE (acute kidney injury) ([facility]); CKD (chronic kidney disease) stage 4, GFR 15-29 ml/min ([facility]); Tachyarrhythmia; HTN, goal below 130/80; Eschar of toe; 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 kidney disease, with long-term current use of insulin ([facility]); Type 2 diabetes mellitus with hemoglobin A1c goal of less than 7.0% ([facility]); DM type 2 causing eye disease ([facility]); Anxiety and depression Allergies Active Allergy Reactions Criticality Noted Date Comments Leander Inhibitors Low 08/10/2021 Other reaction(s): Cough Clarithromycin 08/10/2021 Macrolides And Ketolides 08/10/2021 Pollen 11/12/2019 documented as of this encounter (statuses as of 09/23/2023) Medications Medication Sig Dispensed Refills Start Date End Date Status SERTRALINE HCL 50 MG PO TABS Take 2 Tablets by mouth in the morning. 4 Active SLOW-MAG 71.5-119 MG TBEC Take 2 Tabs by mouth 2 times a day. 0 7 Active Multiple Vitamin (MULTI VITAMIN DAILY) TABSIndications:Moder ate nonproliferative diabetic retinopathy of both eyes with macular edema associated with diabetes mellitus due to underlying condition (HCC) Take by mouth. Active NOVOLOG FLEXPEN 100 UNIT/ML SOPN Inject 4 Units under the skin in the morning and 4 Units at noon and 4 Units in the evening. Inject with meals. + sliding scale coverage for high sugars. 0 8 Active atorvaSTATin (LIPITOR) 20 MG Tablet Take 1 Tablet by mouth in the morning. 9 Active Vitamin B 12 500 MCG Oral Tablet Take 1 Tablet by mouth in the morning. Active Insulin Glargine Solostar 100 UNIT/ML Subcutaneous Solution Pen-injector Inject 26 Units under the skin at bedtime. Active amLODIPine Besylate 10 MG Oral Tablet (Norvasc) Take 1 Tablet by mouth in the morning. Active Vitamin C 1000 MG Oral Tablet Take 1 Tablet by mouth in the morning. Active hydrALAZINE HCl 25 MG Oral Tablet (Apresoline) Take 1 Tablet by mouth in the morning and 1 Tablet at noon and 1 Tablet before bedtime. Active Vitamin D 125 MCG (5000 UT) Oral Capsule Take 1 Capsule by mouth in the morning. Active predniSONE 10 MG Oral Tablet (Deltasone) Take 1 Tablet by mouth in the morning. 09/27/19 24 Active TYLENOL EXTRA STRENGTH 500 MG PO TABS As needed 09/23/19 24 Discontinued(Med Appinionstion List Clean Up) Vitamin D, Ergocalciferol, 28460 UNITS Capsule Take 1 Capsule by mouth once a week. 0 7 09/23/19 24 Discontinued LANTUS SOLOSTAR 100 UNIT/ML SOPN 0 7 09/23/19 24 Discontinued(Workbookstion List Clean Up) Hospital, Clinic, or Other Facility Administered Medication Ordered Dose Route Frequency Start Date End Date Status Aflibercept (Eylea) intraviteal prefilled syringe 2 mgIndications:Type 2 diabetes mellitus with moderate nonproliferative retinopathy of both eyes and macular edema, unspecified whether fdc insulin use (HCC) 2 mg IZ PRN 01/24/2023 01/24/2024 Ac tive ROPivacaine (Naropin) inj 1.5 mgIndications:Type 2 diabetes mellitus with moderate nonproliferative retinopathy of both eyes and macular edema, unspecified whether fdc insulin use (HCC) 1.5 mg IJ PRN 01/24/2023 01/24/2024 Ac tive documented as of this encounter (statuses as of 09/23/2023) Active Problems Problem Noted Date Diagnosed Date Retinal edema 05/30/2011 Moderate nonproliferative diabetic retinopathy 0 05/30/2011 documented as of this encounter (statuses as of 09/23/2023) Immunizations Name Administration Dates Next Due Season Influenza, Quad, PF, Adjuvanted, 65+ Yrs, IM (FLUAD) 02/01/2020 Seasonal Influenza, PF, 6 M & above, IM , (FluLaval or Fluzone) 03/08/2018 Seasonal Influenza, Quadrivalent Hd (Fluzone Hd) 04/03/2023 Seasonal Influenza, Trivalent, Adjuvanted, 65+ y rs 02/20/2019,02/19/2018 documented as of this encounter Social History Tobacco Use Types Packs/Day Years Used Date Smoking Tobacco: Never Smokeless Tobacco: Never Alcohol Use Standard Drinks/Week Comments No 0 (1 standard drink = 0.6 oz pur e alcohol) Sex and Gender Information Value Date Recorded Sex Assigned at Not on file Gender Identity Not on file Sexual Orientation Not on file Job Start Date Occupation Industry Not on file Not on file Not on file documented as of this encounter Last Filed Vital Signs Vital Sign Reading Time Taken Comments Blood Pressure 130/72 09/23/2023 3:16 PM EDT Pulse 136 09/23/2023 3:16 PM EDT Temperature 36.3 C (97.3 F) 09/23/2023 3:16 PM ED T Respiratory Rate 18 09/23/2023 3:16 PM EDT Oxygen Saturation 97% 09/23/2023 3:16 PM EDT room air Inhaled Oxygen Concentration - - Weight 92.9 kg (204 lb 12.8 oz) 09/23/2023 3:16 PM EDT Height - - Body Mass Index - - documented in this encounter Plan of Treatment Upcoming Encounters Date Type Department Care Team (Late st Contact Info) Description 09/26/2023 1:00 PM EDT Office Visit Ophthalmology, [facility] [address] [place] [id number] Derrick Doyle DO [address] [place] [id number] Health Maintenance Due Date Last Done Comments DXA Scan 1945 GFR 1945 HbA1c 08/03/1951 Depression Screening 1957 Albumin/Creatinine Ratio 08/03/1963 Diabetic Foot Exam 08/03/1963 Hepatitis C Screening 08/03/1963 DTaP,Tdap,and Td Vaccines (1 - Tdap) 1964 Pneumococcal Vaccine: 65+ Years (2 of 2 - PPSV23 or PCV20) 03/07/2016 01/11/2016 Diabetic Eye Exam 08/14/2022 08/14/2021, , 06/01/2021, Additional history exists COVID-19 Vaccine ( - 2022- season) 2023 09/16/2020 Zoster Vaccines Completed 01/01/2018, 08/2017, 10/25/2012 Influenza Vaccine (FLU shot) Completed , 03/01/2022, 02/01/2020, Additional history exists GARDASIL-HPV IMMUNIZATION SERIES Aged Out No longer eligible based on patient's age to complete this topic Hepatitis B Aged Out No longer eligi ble based on patient's age to complete this topic MENINGOCOCCAL (MENACTRA/MENVEO) Aged Out No longer eligible based on patient's age to complete this topic documented as of this encounter Medical Devices Not on filedocumented as of this encounter Visit Diagnoses Diagnosis Cellulitis of left lower extremity- Primary Cellulitis and abscess of leg, except foot VALE (acute kidney injury) (HCC) Acute kidney failure, unspecified CKD (chronic kidney disease) stage 4, GFR 15-29 ml/min (HCC) Chronic kidney disease, Stage IV (severe) Tachyarrhythmia Tachycardia, unspecified HTN, goal below 130/80 Unspecified essential hypertension Eschar of toe Unspecified local infection of skin and subcutaneous tissue 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 kidney disease, with long-term current use of insulin (HCC) Type 2 diabetes mellitus with hemoglobin A1c goal of less than 7.0% (HCC) DM type 2 causing eye disease (HCC) Type II or unspecified type diabetes mellitus with ophthalmic manifestations, not stated as uncontrolled Anxiety and depression Dysthymic disorder documented in this encounter Care Teams Enrollment Services Dean Relationship Specialty Start Date End Date Rola Fofana MD [address] [place] [address] PCP - General Internal Medicine 09/23/23 documented as of this encounter
--- OUTSIDE RECORDS SUMMARY | 2023-09-24 11:23 | External Medical Summary | Summary of Care ---
Author Name Unknown Organization [facility] Address [address] [place] [address] Phone [phone] Care Team Providers Care Tobacco Stemmer Name Role Phone Rola Fofana MD Primary Care Provide r Reason for Visit * Reason Onset Date Comments Skilled Visit 09/23/2023 Encounter Details Date Type Department Care Team (Late st Contact Info) Description 09/23/2023 2:30 PM EDT Detention Visit [address] [place] [address] Rhonda Sandoval PA-C [address] [place] [address] Cellulitis of left lower extremity*; VALE (acute kidney injury) ([facility]); CKD (chronic kidney disease) stage 4, GFR 15-29 ml/min ([facility]); Tachyarrhythmia; HTN, goal below 130/80; Eschar of toe; 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 kidney disease, with long-term current use of insulin ([facility]); Type 2 diabetes mellitus with hemoglobin A1c goal of less than 7.0% ([facility]); DM type 2 causing eye disease ([facility]); Anxiety and depression Allergies Active Allergy Reactions [...] PO TABS As needed 09/23/19 24 Discontinued(Med YellowPeppertion List Clean Up) Vitamin D, Ergocalciferol, 89565 UNITS Capsule Take 1 Capsule by mouth once a week. 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 Please see facility medical record for original note. This note is not to be edited or addended in [employer]. Editing or addending needs to occur in the facilities medical record. S: Saige Villarreal had been admitted to [facility] from [facility] for convalesence, PT, and OT. Recently admitted to [facility] because of cellulitis and was transferred here and admitted on 09/20/23. Patient of Rola Fofana MD with history of DM2 with retinopathy and nephropathy, depression/anxiety/paranoia, osteoarthritis of knees, hyperlipidemia, CKD3, ovarian cancer s/p hysterectomy, with a fall down a flight of stairs a few weeks ago, findings of pelvic fracture which was being managed as outpatient, recently presented to the ER on 09/13/23 due to weakness, fatigue, and swelling/redness of the left foot. In ER, WBC mildly elevated to 13.33, hgb 11.0, mild hyponatremia with Na 134, Creatinine 1.86 (near baseline), venous doppler of the left lower extremity was negative for DVT.She was started on ceftriaxone for possible cellulitis, and admitted for ongoing management. Creatinine alhaji to peak of 3.25. She was seen by nephrology regarding a mild VALE on CKD, she becamehyperkalemic with peaked T waves on EKG, she received calcium gluconate/dextrose/insulin/lokelma/IVfluids/furosemide. She developed knee pain and effusions of both knees, ortho evaluated and aspirated both knees, she was treated with a prednisone taper (which continues). CRP was elevated. Synovial fluid negative forcrystals. BPs were elevated and she was started on amlodipine as well as hydralazine, dosing of both were escalated prior to her hospital discharge. Antibiotics adjusted to zosyn, which completed prior to her discharge. Blood cultures were negative. She had some episodes of paranoia with agitation, and had at least one dose of intramuscular zyprexa several days prior to her discharge from the hospital. Has had reports of anxiety and some restlessness here. She feels her cellulitis was worse over the weekend but feels much better today. present for visit, notes that she had recently tried clipping her toenails and had cut intoseveral of her toes, worse on the left foot. Patient lives with , no longer drives, ambulates independently at baseline. Never smoker, does not use alcohol or drugs at home. She reports she was doing well with managing her medications at home, however per hospital charting, reported some concerns of confusion and difficulty managing her medications properly. Pt reports no acute complaints today other than some anxiety/stress. She denies chest pain, palpitations, headache, dizziness, abdominal pain, nausea, vomiting, diarrhea. She admits to some leg edema, which is worse than baseline but better from her recent hospital stay. Past Medical History: Patient Active Problem List Diagnosis Retinal edema Moderate nonproliferative diabetic retinopathy (HCC) Medications: Pt's current medication list is maintained at [facility] and was reviewed at this visit. Review of patient's allergies indicates: Allergen Reactions Clarithromycin Macrolides And Ketolides Pollen Leander Inhibitors Other reaction(s): Cough Social History Tobacco Use Smoking status: Never Smokeless tobacco: Never Substance Use Topics Alcohol use: No Vaping/E-Cigarette Use Vaping/E-Cigarette Substances Vaping/E-Cigarette Devices Past Surgical History: Procedure Laterality Date DENTAL SURGERY PROCEDURE NEC INJECTION OF EYE DRUG 03/12/2011 #1 Avastin OS, Dr. Doyle INJECTION OF EYE DRUG 04/11/2011 #2 Avastin OS, Dr. Doyle INJECTION OF EYE DRUG 05/30/2011 #3 Avastin OS, Dr. Doyle INJECTION OF EYE DRUG 06/13/2011 #1 AVASTIN OD, DR. DOYLE INJECTION OF EYE DRUG 08/15/2011 # 4 Avastin OS, Dr. Doyle INJECTION OF EYE DRUG 09/12/2011 #2 Avastin OD, Dr. Doyle INJECTION OF EYE DRUG 11/29/2011 #5 Avastin OS, INJECTION OF EYE DRUG Left 06/21/2016 # 6 Avastin OS; Dr. Doyle INJECTION OF EYE DRUG Left 08/07/2016 # 1 Eylea OS, INJECTION OF EYE DRUG Left 09/12/2016 # 2 Eylea OS, INJECTION OF EYE DRUG Right 11/09/2016 # 1 Eylea OD, Dr. Doyle INJECTION OF EYE DRUG Left 12/13/2016 # 3 Eylea OS, INJECTION OF EYE DRUG Right 02/21/2017 # 2 Eylea OD, INJECTION OF EYE DRUG Left 03/21/2017 # 4 Eylea OS, Dr. Doyle INJECTION OF EYE DRUG Left 12/12/2017 # 5 Eylea OS, Dr. Doyle INJECTION OF EYE DRUG Left 03/18/2018 # 6 Eylea OS, Dr. Doyle INJECTION OF EYE DRUG Left 05/13/2017 # 7 Eylea OS, INJECTION OF EYE DRUG Left 08/14/2018 # 8 Eylea OS, Dr. Doyle INJECTION OF EYE DRUG Left 05/13/2018 # 7 Eylea OS, Dr. Doyle INJECTION OF EYE DRUG Left 11/20/2018 # 9 Eylea OS, INJECTION OF EYE DRUG Right 11/26/2018 # 3 Eylea OD, Dr. Doyle INJECTION OF EYE DRUG Left 03/04/2019 # 10 Eylea OS, Dr. Doyle INJECTION OF EYE DRUG Right 04/15/2019 # 4 Eylea OD, Dr. Doyle INJECTION OF EYE DRUG Right 09/23/2019 # 5 Eylea OD, Dr. Doyle INJECTION OF EYE DRUG Left 09/23/2019 # 11 Eylea OS, Dr. Doyle INJECTION OF EYE DRUG Left 12/29/2019 # 12 Eylea OS, Dr. Doyle INJECTION OF EYE DRUG Right 02/10/2020 # 6 Eylea OD, INJECTION OF EYE DRUG Left 04/27/2020 # 13 Eylea OS, Dr. Doyle INJECTION OF EYE DRUG Left 06/22/2020 # 14 Eylea OS, Dr. Doyle INJECTION OF EYE DRUG Left 08/03/2020 # 15 Eylea OS, Dr. Doyle INJECTION OF EYE DRUG Left 09/21/2020 # 16 Eylea OS, INJECTION OF EYE DRUG Right 12/28/2020 # 7 eylea OD, INJECTION OF EYE DRUG Left 12/28/2020 # 17 Eylea OS, INJECTION OF EYE DRUG Left 04/27/2021 # 18 Eylea OS, Dr. Doyle INJECTION OF EYE DRUG Right 06/01/2021 #9 Eylea OD, Dr. Doyle INJECTION OF EYE DRUG Left 06/01/2021 # 19 Eylea OS, Dr. Doyle INJECTION OF EYE DRUG Left 07/06/2021 # 20 Eylea OS, Dr. Doyle INJECTION OF EYE DRUG Right 11/02/2021 # 10 Eylea OD, Dr. Doyle INJECTION OF EYE DRUG Left 11/02/2021 # 21 Eylea OS, Dr. Doyle INJECTION OF EYE DRUG Left 12/13/2021 # 22 Eylea OS, Dr. Doyle INJECTION OF EYE DRUG Right 02/22/2022 #11 Eylea OD, Dr Doyle INJECTION OF EYE DRUG Left 04/25/2022 # 23 Eylea OS, Dr. Doyle INJECTION OF EYE DRUG Right 06/13/2022 # 12 Eylea OD, Dr. Doyle INJECTION OF EYE DRUG Left 08/01/2022 #24 Eylea OS; Dr Doyle INJECTION OF EYE DRUG Right 09/19/2022 # 13 Eylea OD, Dr. Young INJECTION OF EYE DRUG Left 10/31/2022 # 25 Eylea OS, Dr. Doyle INJECTION OF EYE DRUG Right 01/24/2023 # 14 Eylea OD, Dr. Doyle INJECTION OF EYE DRUG Left 02/07/2023 # 26 Eylea OS, Dr. Doyle INJECTION OF EYE DRUG Right 04/25/2023 #15 Eylea OD; Dr Doyle INJECTION OF EYE DRUG Left 05/23/2023 #27 Eylea OS; Dr Doyle INJECTION OF EYE DRUG Right 08/22/2023 # 16 EYLEA OD, DR DOYLE INJECTION OF EYE DRUG Left 08/22/2023 # 29 EYLEA OS, DR DOYLE LAP;W/HYSTERECTOMY Hysterectomy Complete w/ ovaries removed LASER TRABECULOPLASTY 11/29/2010 Focal/Grid Laser OD, Dr. Doyle LASER TRABECULOPLASTY 12/06/2010 Laser Procedure OS, Dr. Doyle LASER TRABECULOPLASTY 10/08/2011 Laser procedure of the right eye; Dr. Doyle LASER TRABECULOPLASTY 01/11/2012 Laser procedure of the left eye, LASERING OF SECONDARY CATARACT Right 11/24/2018 Dr. Breezy SARAH ORDER ([facility] ONLY) 03/12/2011-03/12/2012 CONSENT SIGNED AVASTIN OS, DR. VIVEK MOSHER ([facility] ONLY) 06/13/2011-06/13/2012 AVASTIN OD CONSENT SIGNED, DR. VIVEK MOSHER ([facility] ONLY) Left 06/21/2016-06/21/2017 AVASTIN CONSENT OS SIGNED; DR DOYLE (GOOD THRU 06/21/2017) MISCELLANEOUS ORDER ([facility] ONLY) Left 08/07/2016-08/07/2017 Eylea OS Consent signed, Dr.Cessna TYREL MOSHER ([facility] ONLY) Right 11/09/2016-11/09/2017 EYLEA CONSENT OD SIGNED, Dr. Vivek MOSHER ([facility] ONLY) Bilateral 12/12/2017-12/12/2018 Eylea OU consent signed, Dr.Cessna TYREL MOSHER ([facility] ONLY) ACT 112 FORM SIGNED; DR DOYLE (08/14/18) MISCELLANEOUS ORDER ([facility] ONLY) Bilateral 12/17/2018-12/18/2019 EYLEA OU CONSENT SIGNED, Dr. Vivek JOSHUAANEOUS ORDER ([facility] ONLY) Bilateral 12/29/2019-12/28/2020 EYLEA CONSENT OU SIGNED; DR DOYLE OTHER Bilateral Eylea OU consent signed, /Julius 12/28/2020-12/28/2021 OTHER (INFORMATION) EYLEA OU CONSENT SINGED Dr. Doyle/Julius ( Exp 01-19-23) OTHER (INFORMATION) Bilateral Vabysmo Consent OU Exp 09/20/23, Dr. Doyle/Julius OTHER (INFORMATION) Bilateral EYLEA OU CONSENT DR. DOYLE/JULIUS EXP. 01/25/24 REMOVE CATARACT, INSERT LENS PROSTH 07/04/2011 OD-Dr. Tijerina Family History Problem Relation Name Age of Onset Diabetes Father Eye Problems Father AMD/DR Glaucoma None Heart Disorder Father Acute TX Hypertension Mother Family Status Relation Status Fa (Not Specified) NONE (Not Specified) Mo (Not Specified) Review of Systems: Per HPI ADL skills: dependent Ambulates independently at baseline OBJECTIVE: BP 130/72 | Pulse 136 | Temp 36.3 C (97.3 F) | Resp 18 | Wt 92.9 kg (204 lb 12.8 oz)| SpO2 97% Comment: room air General: alert and no distress, somewhat anxious Head: Normocephalic Eye Exam: conjunctiva are pink and non-injected, sclera clear Oropharynx: lips, buccal mucosa, and tongue normal and mucous membranes are moist Heart: irregularly irregular and tachycardia with rate 134 bpm on exam Lungs: chest symmetric with normal AP diameter, no chest deformities noted, no chest wall tenderness, lungs clear to auscultation Abdomen: abdomen soft, non-tender, obese, normal bowel sounds, no masses or organomegaly, and no rebound or guarding Extremities: less than 2 second capillary refill, no joint deformities, effusion, or inflammation, +1 BLE edema at ankles Neuro Exam: alert & oriented x 3 with fluent speech Skin: pink, warm ,dry, no erythema of either lower leg. There is an eschar of the tip of the left great toe. ASSESSMENT: Cellulitis of left lower extremity (Primary) Appears resolved VALE (acute kidney injury) ([facility]) CKD (chronic kidney disease) stage 4, GFR 15-29 ml/min ([facility]) VALE on CKD managed in hospital, improved before discharge BMP tomorrow Tachyarrhythmia Check EKG HTN, goal below 130/80 Continue amlodipine + hydralazin for now - both new medications for her, BPs appears elevated on most checks since admission Eschar of toe Pt looking to establish with podiatry as outpatient for nail care Betadine to eschar of left great toe ( can use on both feet for ease of patient remembering to do this when she goes home) 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 kidney disease, with long-term current use of insulin([facility]) Type 2 diabetes mellitus with hemoglobin A1c goal of less than 7.0% ([facility]) DM type 2 causing eye disease ([facility]) Continue current DM management - lantus 26 units + novolog 4 units with each meal + sliding scale coverage for hyperglycemia She follows with endocrinology as outpatient Anxiety and depression Continue home sertraline 100 mg daily Patient request DNR PLAN: 1. Continue present medication(s): 2. Admission orders, medications, labs, hospital records and care plan reviewed. 3. Continue current treatment plan as , Robotics Mechanic consult, Physical Therapy, and Occupational Therapy ordered. 4. Care plan reviewed. 5. Advance Directives were discussed: The patient is a DNR I spent a total of 108 minutes coordinating, documenting, and providing care for this patient excluding time spent in the performance of separately billed services or time spent by another provider/QHP. Electronically signed by: Rhonda Sandoval PA-C documented in this encounter Plan of Treatment Upcoming Encounters Date Type Department Care Team (Late st Contact Info) Description 09/26/2023 1:00 PM EDT Office Visit Ophthalmology, [facility] [address] [place] [id number] Derrick Doyle DO [address] [place] [address] Health Maintenance Due Date Last Done Comments DXA Scan 1945 GFR 1945 HbA1c 08/03/1951 Depression Screening 1957 Albumin/Creatinine Ratio 08/03/1963 Diabetic Foot Exam 08/03/1963 Hepatitis C Screening 08/03/1963 DTaP,Tdap,and Td Vaccines (1 - Tdap) 1964 Pneumococcal Vaccine: 65+ Years (2 of 2 - PPSV23 or PCV20) 03/07/2016 01/11/2016 Diabetic Eye Exam 08/14/2022 08/14/2021, , 06/01/2021, Additional history exists COVID-19 Vaccine (2 - 2022- season) 2023 09/16/2020 Zoster Vaccines [...] leg, except foot VALE (acute kidney injury) ([facility]) Acute kidney failure, unspecified CKD (chronic kidney disease) stage 4, GFR 15-29 ml/min ([facility]) Chronic kidney disease, Stage IV (severe) Tachyarrhythmia Tachycardia, unspecified HTN, goal below 130/80 Unspecified essential hypertension Eschar of toe Unspecified local infection of skin and subcutaneous tissue 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 kidney disease, with long-term current use of insulin ([facility]) Type 2 diabetes mellitus with hemoglobin A1c goal of less than 7.0% ([facility]) DM type 2 causing eye disease ([facility]) Type II or unspecified type diabetes mellitus with ophthalmic manifestations, not stated as uncontrolled Anxiety and depression Dysthymic disorder documented in this encounter Care Teams Tobacco Stemmer Relationship Specialty Start Date End Date Rola Fofana MD [address] [place] [address] PCP - General Internal Medicine 09/23/23 documented as of this encounter"
--- NOTE | 2023-09-24 14:51 | XCELERA ---
[id number] \\[email or web address]\[id number]
--- NOTE | 2023-09-24 15:37 | Discharge Summary ---
Date of Service September 24, 2023 Admission HPI Per Admitting Provider Saige is a pleasant 78-year-old female with PMH of T2DM, HLD, HTN, asthma, piriformis syndrome, CKD stage IV, and recent pelvic fracture on 09/12/2023. She presented from [facility] for SVT on EKG on 09/22. Patient reports she was asymptomatic at the time, but nursing staff reported she had a fast heart rate; EKG done at the time reported SVT at 154 bpm. No chest palpitations, dizziness, lightheadedness, SOB, or chest pain. No history of atrial fibrillation or SVT to her knowledge. Patient took all of her regular morning medications today. Recent [place] admission from 09/13-09/19 for cellulitis and pelvic fracture secondary to fall. Patient denies any hip pain at time of admission; her only pain is mild bilateral knee pain. Patient was discharged on prednisone for her cellulitis. She denies smoking, tobacco use, recent alcohol use. She has not had no falls since her fall on 09/11. Hx of hypomagnesemia in the past secondary to high blood sugars for diabetes. Patient is hypertensive at 159/75 at time of admission; vitals otherwise stable. ED course: Magnesium sulfate 1 g x 2 ROS: Patient endorses diarrhea (on Saturday night; resolved), and bilateral knee pain (ongoing). Patient denies fever, chills, night-sweats, dizziness, lightheadedness, HAQUE, tremor, changes in vision, CP, chest pressure, chest palpitations, SOB, cough, abdominal pain, N/V, blood in the urine/stool, dysuria, burning with urination, or numbness/tingling in the arms or legs. Principal Diagnosis atrial fibrillation Discharge Exam Constitutional: well-appearing, no acute distress HEENT: NCAT, no conjunctival injection CV: regular rhythm, no murmur appreciated, extremities well-perfused, no LE edema Resp: CTABL, no wheezes/rales/rhonchi appreciated, no increased work of breathing GI: soft, nondistended, nontender, BS normoactive MSK: no gross deformities appreciated Skin: warm, dry, no rash appreciated Neuro: alert, oriented, no focal neurologic deficit appreciated Discharge Data Allergies Allergy/AdvReac Type Severity Reaction Status Date / Time tree and shrub pollen Allergy Intermediate ITCHY Verified 09/23/23 21:38 EYES, SNEEZING, CONGESTION CODY Inhibitors AdvReac Intermediate Cough Verified 09/23/23 21:38 clarithromycin AdvReac Intermediate Vomiting Verified 09/23/23 21:38 Macrolide Antibiotics AdvReac Intermediate Vomiting Verified 09/23/23 21:38 Consultations 09/23/23 19:15 ED Decision to Admit Stat Ordered Studies Laboratory Results WBC 17.51 K/ul (4.8-10.8) H 09/24/23 01:54 RBC 3.27 M/uL (4.20-5.40) L 09/24/23 01:54 Hgb 9.6 g/dl (12.0-16.0) L 09/24/23 01:54 Hct 28.4 % (37.0-47.0) L 09/24/23 01:54 MCV 86.9 fL (80.0-100.0) 09/24/23 01:54 MCH 29.4 pg (25.0-34.0) 09/24/23 01:54 MCHC 33.8 g/dL (32.0-36.0) 09/24/23 01:54 RDW Std Deviation 47.4 fL (36.4-46.3) H 09/24/23 01:54 RDW Coeff of [place] 15.0 % (11.5-14.5) H 09/24/23 01:54 Plt Count 381 K/uL (130-400) 09/24/23 01:54 MPV 10.2 fL (9.4-12.4) 09/24/23 01:54 Immature Gran % (Auto) 1.3 % 09/24/23 01:54 Neut % (Auto) 70.3 % 09/24/23 01:54 Lymph % (Auto) 19.5 % 09/24/23 01:54 [place] % (Auto) 8.2 % 09/24/23 01:54 Eos % (Auto) 0.5 % 09/24/23 01:54 Baso % (Auto) 0.2 % 09/24/23 01:54 Neut # (Auto) 12.32 K/uL (1.40-6.50) H 09/24/23 01:54 Lymph # (Auto) 3.42 K/uL (1.20-3.40) H 09/24/23 01:54 [place] # (Auto) 1.43 K/uL (0.11-0.59) H 09/24/23 01:54 Eos # (Auto) 0.09 K/uL (0.00-0.50) 09/24/23 01:54 Baso # (Auto) 0.03 K/uL (0.00-0.20) 09/24/23 01:54 Immature Gran # (Auto) 0.22 K/uL (0.01-0.20) H 09/24/23 01:54 PT 11.5 Seconds (9.0-12.0) 09/23/23 18:11 INR 1.1 (0.9-1.1) 09/23/23 18:11 APTT 25 Seconds (21-31) 09/23/23 18:11 PTT Ratio 0.9 09/23/23 18:11 Sodium 137 mmol/L (136-145) 09/24/23 01:54 Potassium 3.4 mmol/L (3.5-5.1) L 09/24/23 01:54 Chloride 103 mmol/L (98-107) 09/24/23 01:54 Carbon Dioxide 25 mmol/L (21-32) 09/24/23 01:54 Anion Gap 9 (3-11) 09/24/23 01:54 BUN 57 mg/dl (6-23) H 09/24/23 01:54 Creatinine 2.36 mg/dl (0.6-1.2) H 09/24/23 01:54 Est Cr Clr Drug Dosing 21.3 ml/min 09/24/23 01:54 Est GFR ( Amer) 22.1 ml/min 09/24/23 01:54 Est GFR (Non-Af Amer) 19.1 ml/min 09/24/23 01:54 BUN/Creatinine Ratio 24.2 (10-20) H 09/24/23 01:54 Glucose 182 mg/dl (70-99(Fasting)) H 09/24/23 01:54 POC Glucose 180 mg/dl (70-99) H 09/24/23 11:03 Calcium 8.4 mg/dl (8.6-10.3) L 09/24/23 01:54 Magnesium 2.3 mg/dl (1.7-2.4) 09/24/23 01:54 Total Bilirubin 0.4 mg/dl (0.2-1.0) 09/23/23 18:11 AST 24 U/L (13-39) 09/23/23 18:11 ALT 31 U/L (7-52) 09/23/23 18:11 Alkaline Phosphatase 71 U/L (34-104) 09/23/23 18:11 Troponin I High Sens 251.0 pg/ml (0-14) H* D 09/24/23 08:25 Total Protein 6.9 gm/dl (6.0-8.3) 09/23/23 18:11 Albumin 3.4 gm/dl (3.4-5.0) 09/23/23 18:11 Globulin 3.5 gm/dl (2.5-4.0) 09/23/23 18:11 Albumin/Globulin Ratio 1.0 (0.9-2) 09/23/23 18:11 Lipase 34 U/L (11-82) 09/23/23 18:11 TSH 1.424 uIu/ml (0.300-4.500) 09/23/23 18:11 Nasal Screen MRSA (PCR) Negative (Negative) 09/23/23 22:00 Impressions Chest X-Ray 09/23/23 18:06 XR chest 1V portable HISTORY: Chest pain, nonspecific COMPARISON: Chest 09/16/2023. FINDINGS: No pneumothorax. No pleural effusions. There are low lung volumes. The heart remains mildly enlarged. No acute fractures. Perihilar interstitial/vascular thickening suggestive of mild congestive change. Left basilar linear densities favor subsegmental atelectasis or scarring. This is similar to the prior study. Otherwise, no new focal lung consolidations to suggest pneumonia. IMPRESSION: Cardiomegaly with mild congestive change. ACT 112: Negative or not required by law. Electronically signed by: Neeraj Long M.D. 09/23/2023 7:01 PM Hospital Course (1) Abnormal EKG: #Atrial Fibrillation -New onset, asymptomatic - YANG-VASC 5 - echo with mild LVH -rx metoprolol succinate 25mg daily -rx eliquis 5mg bid #Leukocytosis, stable -in the setting of recent steroid use to treat her cellulitis during [place] admission 09/13 - 09/19 -cellulitis is largely resolved at time of admission #Acute kidney injury superimposed on CKD -Cr 2.53 on admission (most recent baseline 1.86), EGFR 17.6 -some improvement s/p IVF. Encourage oral intake #DM2 cont. home meds (2) Hypomagnesemia: (3) Pelvis fracture: (4) Leukocytosis: (5) Type 2 diabetes mellitus: (6) Acute kidney injury superimposed on CKD: (7) Hyperlipidemia: (8) Hypertension: (9) Chronic kidney disease, stage 4 (severe): (10) Memory loss, short term: (11) Elevated troponin: Total Time Total Time Spent Total Time Spent (In Minutes): <30 Discharge Plan Discharge Items Patient Disposition: Personal Long Term Reason For Visit: CARDIAC ASSESSMENT Discharge Diagnosis: atrial fibrillation Condition on Discharge: Fair Activity: Per Instructions section Non-emergency contact: Primary Care Provider Call non-emergency contact if: you have any medication questions and your symptoms worsen Follow-up/Referrals: Rola Fofana MD [Primary Care Provider] - 10/04/23 3:00 pm (Hospital follow up scheduled October 03 at 3:00 with Martita Keller) Diet: Carb Consistent or DM2 Addtl Attending Provider Instructions: #Atrial Fibrillation -New onset, asymptomatic - YANG-VASC 5 - echo with mild LVH -rx metoprolol succinate 25mg daily -rx eliquis 5mg bid #Leukocytosis, stable In the setting of recent steroid use to treat her cellulitis during [place] admission 09/13 - 09/19 Cellulitis is largely resolved at time of admission #Acute kidney injury superimposed on CKD -Cr 2.53 on admission (most recent baseline 1.86), EGFR 17.6 -some improvement s/p IVF. Encourage oral intake Pending Studies at Discharge: No Stand-Alone Forms: Whereoscope, Smoking Cessation Skilled Items Patient informed of condition?: Yes DNR: Yes Discharge Level of Care: Other Communicable Disease: No Discharge Prognosis: Stable Lines: None Urinary Catheter: No Medications and DC Order Prescriptions: New Eliquis 5 mg tablet 5 mg PO BID Qty: 60 0RF metoprolol succinate 25 mg tablet extended release 24 hr 25 mg PO DAILY Qty: 30 0RF Continued cyanocobalamin (vitamin B-12) 500 mcg tablet 500 mcg PO DAILY Qty: 30 0RF atorvastatin 20 mg tablet 20 mg PO DAILY Qty: 90 3RF cholecalciferol (vitamin D3) 125 mcg (5,000 unit) capsule 5,000 unit PO DAILY Qty: 90 3RF multivitamin tablet 1 tab PO DAILY ascorbic acid (vitamin C) 1,000 mg tablet 1 gm PO DAILY insulin glargine [Basaglar KwikPen U-100 Insulin] 100 unit/mL (3 mL) insulin pen 26 unit SUBCUT HS insulin aspart U-100 [Novolog FlexPen U-100 Insulin] 100 unit/mL (3 mL) insulin pen 4 unit SQ TIDM polyethylene glycol 3350 [Miralax] 17 gram Powder In Packet 17 g PO DAILY PRN (Reason: constipation) Qty: 0 0RF hydralazine 25 mg Tablet 25 mg PO TID Qty: 30 0RF acetaminophen [Tylenol] 325 mg Tablet 650 mg PO Q4 PRN (Reason: Fever Or Pain) povidone-iodine [Betadine Swabsticks] 10 % Swab 1 applic TOPICAL [facility] Rx Instructions: TIPS OF BL GREAT TOES docusate sodium 100 mg Tablet 100 mg PO DAILY PRN (Reason: Constipation) insulin aspart U-100 [Novolog FlexPen U-100 Insulin] 100 unit/mL (3 mL) Insulin Pen 1 sliding scale dose SUBCUT USEASDIRECTD Rx Instructions: With meals, 150-200=1unit, 201-250=2units, 251-300=3 units, 301-350=4units, 351-400=5units, 1+ additional 5 units, check in 1 hr if still over 400 call sertraline 100 mg Tablet 100 mg PO DAILY Slo Magnesium/Calcium 64/106 2 tabs PO BID prednisone 10 mg tablet 10 mg PO DAILY Rx Instructions: for 3 days, , & amlodipine 10 mg Tablet 10 mg PO DAILY Discharge Orders: Discharge Order (Routine); Ordered 09/24/23 Ordered By: Francis Bolton Admission Data Admit Date/Time: 09/23/23 20:20 Attending Provider: Brennen Lebron Admit Provider: Lissa Castorena Primary Care Provider: Rola Fofana Other Providers: Lissa Castorena Other Interventions: Discharge Summary Assessment (RN) Last Done: 05/21/24 15:48 Supervising Physician Co-Signing Physician Notes I personally examined the patient and verified all robles points of history and exam, discussed case, and agree with decision making with Dr Aguila Feeling better. Would like to get back to [facility] to do further rehab to get home sooner. Extensive discussion on what appears to be atrial fibrillation, pathophysiology, and management. Vitals noted, in general she is awake and alert pleasant no distress. HEENT normocephalic atraumatic mucous membranes moist. Breathing unlabored no accessory muscle use good effort. Skin without rashes pallor or icterus. Neuro without focal deficits. On monitor she is sinus rhythm at about 70 whenever I enter the room. Her EKG at skilled appears to me as well as my resident team to be more consistent with atrial fibrillation, possibly atrial flutter, but not consistent with SVT or sinus tachycardia. New onset A-fibrate is controlled, initiate anticoagulation. Safe/stable for discharge. Does not have symptoms that seem consistent with ROSANA, but also reasonable to get outpatient sleep study given the correlation between undiagnosed/untreated sleep apnea and A-fib; echocardiogram shows mild LVH with an EF of 60 to 65% mild to moderate mitral regurg (will want to follow mitral regurg, but to be clear with only mildly dilated left atrium I would look at this as more multifactorial A-fib than purely mitral regurgitant A-fib), TSH was 1.424. Metoprolol for rate control, Eliquis for anticoagulation. Given that her tracing EKG appears to be A-fib to me and my team, but it was a little bit of a difficult to interpret tracing, and she was in sinus since she has been here, would be reasonable to consider outpatient rhythm monitoring. Follow-up echo in 3-6 months to follow-up on the mitral regurg. Extensive discussion with patient and answered all questions the best my ability and to her satisfaction. Resident Activity Tracking Resident Involvement: Resident Care Provided Care Provided: Adult [facility]
--- NOTE | 2023-09-24 15:56 | Electrocardiogram Report ---
Test Reason : Blood Pressure : / mmHG Vent. Rate : 087 BPM Atrial Rate : 087 BPM P-R Int : 146 ms QRS Dur : 078 ms QT Int : 398 ms P-R-T Axes : 006 006 042 degrees QTc Int : 478 ms Sinus rhythm with frequent Premature ventricular complexes Minimal voltage criteria for LVH, may be normal variant ( R in aVL ) Borderline ECG When compared with ECG of 15-SEP-2023 09:22, Premature ventricular complexes are now Present Nonspecific T wave abnormality now evident in Lateral leads Confirmed by Eddie Kuo ([id number]) on 09/24/2023 3:55:41 PM Referred By: REFERRED SELF Confirmed By:Eddie Kuo
--- NOTE | 2023-09-24 20:20 | Billing Data ---
Date of Service September 24, 2023 Coding Level of Care Code 23172 IN/OBS DISCH 30 MIN/LESS
== END 2023-09-24 15:49 | disposition home or self-care (01) ==
LOC: 2S 17:54 → ED 17:54 → SUATTDRO 20:20 → 2S 21:40